=== PATIENT | male | born 1960 | race Caucasian/White ===

== ENCOUNTER 2020-07-19 21:05 | Emergency (ER) | payer BC, SELFPAY ==
[2020-07-19 21:11] VITALS: BP 191/114; PULSE 102; RESP 18; TEMP 36.3; O2SAT 98; BMI 27.8
--- NOTE | 2020-07-19 21:18 | CTR_ITS ---
PROCEDURE INFORMATION: Exam: CT Head Without Contrast Exam date and time: 07/19/2020 9:19 PM Age: 60 years old Clinical indication: Weakness, facial; Additional info: Left side facial deficit TECHNIQUE: Imaging protocol: Computed tomography of the head without contrast. Radiation optimization: All CT scans at this facility use at least one of these dose optimization techniques: automated exposure control; mA and/or kV adjustment per patient size (includes targeted exams where dose is matched to clinical indication); or iterative reconstruction. COMPARISON: CT head wo con* [id number] 06/21/2014 8:37 AM RADIATION DOSE METRICS: Total DLP (mGy-cm): 749.32 FINDINGS: Brain: Left left basal ganglia punctate benign calcification. Cerebral ventricles: No ventriculomegaly. Bones/joints: Unremarkable. No acute fracture. Paranasal sinuses: Visualized sinuses are unremarkable. No fluid levels. Mastoid air cells: Visualized mastoid air cells are well aerated. Soft tissues: Unremarkable. CT/CT head wo con* [id number] IMPRESSION: Negative for intracranial hemorrhage or mass effect. Radiation Dose CTDIVOL = (mGy): DLP = 749.32 (mGy-cm)
[2020-07-19 21:29] LABS: Glucose Point of Care 370 mg/dL (70-110)
[2020-07-19 21:32] LABS: Glucose Point of Care 417 mg/dL (70-110)
[2020-07-19 21:36] LABS: Basophils # 0.1 10^3/uL (0.0-0.1); Basophils % 0.8 %; Eosinophils # 0.3 10^3/uL (0.0-0.8); Eosinophils % 3.5 %; Hematocrit 41.7 % (42.0-52.0); Hemoglobin 13.9 g/dL (11.7-16.6); Lymphocytes % 44.8 %; Mean Corpuscular HGB Conc 33.3 g/dL (30.0-36.0); Mean Corpuscular Hemoglobin 29.7 pg (28.0-34.0); Mean Corpuscular Volume 89.1 fL (80-94); Mean Platelet Volume 9.3 fL (7.4-10.4); Monocytes # 0.6 10^3/uL (0.2-0.9); Monocytes % 6.7 %; Neutrophils # 3.95 10^3/uL (1.8-7.7); Nucleated Red Blood Cells % 0 %; Platelet Count 374 10^3/cmm (130-400); Red Blood Count 4.68 10^6/uL (4.1-5.3); Red Cell Distribution Width 11.9 % (12.1-15.1)
[2020-07-19 21:51] LABS: INR 1.03 (0.8-1.2)
--- NOTE | 2020-07-19 21:54 | ED_ITS ---
HPI - Neuro Symptoms/Deficit General: Chief Complaint: Neuro Symptoms/Deficit Stated Complaint: Partial face parallisis Time Seen by Provider: 07/19/20 21:28 History of Present Illness: HPI Narrative: This patient is a 60-year-old male who comes in today with facial droop. His family noticed it at 7 PM tonight and made him come to the emergency room. He had not noticed any issues himself other than having some watery eye symptoms during the day today. He thinks it started midmorning but he attributed to the [place] conditions where he works. He had not noticed any difficulty with eating or drinking. He has a history of diabetes and high blood pressure but does not take medications as he lost his insurance and cannot afford to get them. He currently does not have a primary care doctor. He does not think he is ever been told that he had high chol esterol. He is never had a stroke. He feels fine. He has not had any recent illness or fevers. He does say has had some allergy symptoms about a month ago. Onset (ago): unknown Timing confirmed by: family member (His daughter said she saw him last night and he was fine. When she saw him at 7:00 tonight he had a facial droop.) Location: right face History of same: No Severity: moderate Quality: weak Relieving factors: none Exacerbating factors: none Context: gradual onset (Unsure) Associated symptoms: Deny chest pain, headache(s), malaise, nausea, tingling, vertigo, vomiting or weakness Review of Systems General: Reports: 10 or more systems reviewed and unremarkable except in HPI and below Const: Denies: fever(s), chills, fatigue or malaise Eyes: Denies: change in vision ENMT: Denies: odynophagia Card: Denies: chest pain or swelling of feet/ankles Resp: Denies: dyspnea, productive cough or non-productive cough GI: Denies: nausea or vomiting : Denies: flank pain Musc: Denies: neck pain or back pain Skin/Breast: Denies: rash Neuro: Denies: headache(s) or vertigo Trevor/Lymph: Denies: easy bruising or easy bleeding [facility] ED PFSH: Medical History (Updated 07/19/20 @ 23:24 by Bree Ortiz MD) Diabetes Hypertension Physical Exam Const: COMMON NORMALS: no acute distress, patient oriented x3, no limitations and alert GENERAL APPEARANCE: cooperative and comfortable HENMT: HEAD & SCALP: normal to inspection FACE & SINUS: face not symmetric Eye: GENERAL EYE: appearance normal, both eyes and all related structures Neck/C-Spine: COMMON NORMALS: supple, no meningeal signs and no JVD Chest: COMMONS NORMALS: normal inspection of the chest Resp: COMMON NORMALS: normal respiratory effort, No use of accessory muscles and clear to auscultation bilaterally AUSCULTATION: clear to auscultation bilaterally Cardio: COMMON NORMALS: no JVD, regular rate, regular rhythm and No murmurs present (Cardio) RATE: regular rate RHYTHM: regular rhythm GI: COMMON NORMALS: Normal to inspection, nondistended, normoactive bowel sounds present, Soft to palpation and non-tender INSPECTION: Yes normal to inspection AUSCULTATION: Yes normoactive bowel sounds PALPATION: Yes Soft to palpation Back/Pelvis: COMMON NORMALS: thoracic and lumbar spine normal to inspection Extremity: COMMON NORMALS: normal to inspection Neuro: COMMON NORMALS: patient oriented x3, moves all extremities, no focal motor deficits and no sensory deficits noted SENSORIUM/ORIENTATION: Yes alert MENINGEAL SIGNS: Yes no meningeal signs CRANIAL NERVES: Yes CN V (trigeminal) (Right facial droop including the eyebrow) Psych: COMMON NORMALS: mental status grossly normal, cooperative and normal affect Skin: COMMON NORMALS: no rashes or lesions noted and turgor normal GENERAL SKIN EXAM: no rashes or lesions noted and turgor normal Course ED course: This patient remained stable through the ER visit. He had no new neurologic symptoms developing. He has a fairly classic presentation of Arrieta's palsy. We discussed the etiology and treatment of that. We also discussed the importance of managing his eye to keep it moist with lubricant and even taping the eye shut at night. We discussed the importance of returning if he were to develop any other neurologic symptoms as that would not be typical for Arrieta's palsy. I refilled his blood pressure medicine and diabetes medicine. His blood sugar was quite elevated in the ER but no sign of DKA. We will also have the shelter case managermanager style him to help try to find him a new primary care doctor. He said he cannot go back to [facility] because he owes $800 there. Vital Signs: Vital signs: Vital Signs Temperature 97.3 F L 07/19/20 21:11 Pulse Rate 84 07/19/20 23:41 Respiratory Rate 16 07/19/20 23:41 Blood Pressure 137/82 07/19/20 23:41 Pulse Oximetry 96 07/19/20 23:41 MDM - Neuro Symptoms/Deficit Lab Data: Labs: Lab Results 07/19/20 07/19/20 07/19/20 Range/Units 21:25 21:25 21:25 WBC 9.0 (4.0-10.0) 10^3/ uL RBC 4.68 (4.1-5.3) 10^6/u L Hgb 13.9 (11.7-16.6) g/dL Hct 41.7 L (42.0-52.0) % MCV 89.1 (80-94) fL MCH 29.7 (28.0-34.0) pg MCHC 33.3 (30.0-36.0) g/dL RDW 11.9 L (12.1-15.1) % Plt Count 374 (130-400) 10^3/c mm MPV 9.3 (7.4-10.4) fL Neut % (Auto) 44.0 % Lymph % (Auto) 44.8 % Holmes % (Auto) 6.7 % Eos % (Auto) 3.5 % Baso % (Auto) 0.8 % Neut # (Auto) 3.95 (1.8-7.7) 10^3/u L Lymph # (Auto) 4.0 (0.8-4.8) 10^3/u L Holmes # (Auto) 0.6 (0.2-0.9) 10^3/u L Eos # (Auto) 0.3 (0.0-0.8) 10^3/u L Baso # (Auto) 0.1 (0.0-0.1) 10^3/u L Nucleated RBC % (a uto) 0 % Nucleated RBCs # 0.0 /100WBC PT 13.80 (12.1-14.9) SECO NDS INR 1.03 (0.8-1.2) Sodium 135 L (136-145) mmol/L Potassium 3.6 (3.5-5.1) mmol/L Chloride 96 L (98-107) mmol/L Carbon Dioxide 28 (22-29) mmol/L Anion Gap 14.6 (5-19) BUN 18 (8-23) mg/dL Creatinine 1.0 (0.7-1.2) mg/dL GFR Calculation 76.2 L (90-130) mL/min Glucose 417 H (65-115) mg/dL POC Glucose (70-110) mg/dL Calculated Osmolal ity 300 H (285-295) mOsm/k g Calcium 9.2 (8.5-10.5) mg/dL Total Bilirubin 0.4 (0.15-1.2) mg/dL AST 30 (0-40) U/L ALT 31 (0-41) U/L Alkaline Phosphata se 144 H (40-130) IU/L Total Protein 7.4 (6.6-8.7) g/dL Albumin 4.5 (3.5-5.2) g/dL Globulin 2.9 (1.3-4.6) g/dL Urine Color (Yellow) Urine Appearance (CLEAR) Urine pH (5-7) Ur Specific Gravit y (1.005-1.030) Urine Protein (Negative) Urine Glucose (UA) (Normal) Urine Ketones (Negative) Urine Blood (Negative) Urine Nitrate (Negative) Urine Bilirubin (Negative) Urine Urobilinogen (Negative) mg/dL Ur Leukocyte Jaylin ase (Negative) 07/19/20 07/19/20 07/19/20 Range/Units 21:27 21:31 22:26 WBC (4.0-10.0) 10^3/ uL RBC (4.1-5.3) 10^6/u L Hgb (11.7-16.6) g/dL Hct (42.0-52.0) % MCV (80-94) fL MCH (28.0-34.0) pg MCHC (30.0-36.0) g/dL RDW (12.1-15.1) % Plt Count (130-400) 10^3/c mm MPV (7.4-10.4) fL Neut % (Auto) % Lymph % (Auto) % Holmes % (Auto) % Eos % (Auto) % Baso % (Auto) % Neut # (Auto) (1.8-7.7) 10^3/u L Lymph # (Auto) (0.8-4.8) 10^3/u L Holmes # (Auto) (0.2-0.9) 10^3/u L Eos # (Auto) (0.0-0.8) 10^3/u L Baso # (Auto) (0.0-0.1) 10^3/u L Nucleated RBC % (a uto) % Nucleated RBCs # /100WBC PT (12.1-14.9) SECO NDS INR (0.8-1.2) Sodium (136-145) mmol/L Potassium (3.5-5.1) mmol/L Chloride (98-107) mmol/L Carbon Dioxide (22-29) mmol/L Anion Gap (5-19) BUN (8-23) mg/dL Creatinine (0.7-1.2) mg/dL GFR Calculation (90-130) mL/min Glucose (65-115) mg/dL POC Glucose 370 417 (70-110) mg/dL Calculated Osmolal ity (285-295) mOsm/k g Calcium (8.5-10.5) mg/dL Total Bilirubin (0.15-1.2) mg/dL AST (0-40) U/L ALT (0-41) U/L Alkaline Phosphata se (40-130) IU/L Total Protein (6.6-8.7) g/dL Albumin (3.5-5.2) g/dL Globulin (1.3-4.6) g/dL Urine Color Yellow (Yellow) Urine Appearance Clear (CLEAR) Urine pH 6.0 (5-7) Ur Specific Gravit y 1.015 (1.005-1.030) Urine Protein Neg (Negative) Urine Glucose (UA) 4+ H (Normal) Urine Ketones Negative (Negative) Urine Blood Neg (Negative) Urine Nitrate Negative (Negative) Urine Bilirubin Neg (Negative) Urine Urobilinogen Norm (Negative) mg/dL Ur Leukocyte Jaylin ase Negative (Negative) 07/19/20 Range/Units 23:02 WBC (4.0-10.0) 10^3/ uL RBC (4.1-5.3) 10^6/u L Hgb (11.7-16.6) g/dL Hct (42.0-52.0) % MCV (80-94) fL MCH (28.0-34.0) pg MCHC (30.0-36.0) g/dL RDW (12.1-15.1) % Plt Count (130-400) 10^3/c mm MPV (7.4-10.4) fL Neut % (Auto) % Lymph % (Auto) % Holmes % (Auto) % Eos % (Auto) % Baso % (Auto) % Neut # (Auto) (1.8-7.7) 10^3/u L Lymph # (Auto) (0.8-4.8) 10^3/u L Holmes # (Auto) (0.2-0.9) 10^3/u L Eos # (Auto) (0.0-0.8) 10^3/u L Baso # (Auto) (0.0-0.1) 10^3/u L Nucleated RBC % (a uto) % Nucleated RBCs # /100WBC PT (12.1-14.9) SECO NDS INR (0.8-1.2) Sodium (136-145) mmol/L Potassium (3.5-5.1) mmol/L Chloride (98-107) mmol/L Carbon Dioxide (22-29) mmol/L Anion Gap (5-19) BUN (8-23) mg/dL Creatinine (0.7-1.2) mg/dL GFR Calculation (90-130) mL/min Glucose (65-115) mg/dL POC Glucose 231 (70-110) mg/dL Calculated Osmolal ity (285-295) mOsm/k g Calcium (8.5-10.5) mg/dL Total Bilirubin (0.15-1.2) mg/dL AST (0-40) U/L ALT (0-41) U/L Alkaline Phosphata se (40-130) IU/L Total Protein (6.6-8.7) g/dL Albumin (3.5-5.2) g/dL Globulin (1.3-4.6) g/dL Urine Color (Yellow) Urine Appearance (CLEAR) Urine pH (5-7) Ur Specific Gravit y (1.005-1.030) Urine Protein (Negative) Urine Glucose (UA) (Normal) Urine Ketones (Negative) Urine Blood (Negative) Urine Nitrate (Negative) Urine Bilirubin (Negative) Urine Urobilinogen (Negative) mg/dL Ur Leukocyte Jaylin ase (Negative) Discharge Plan Discharge Patient Disposition: Home Clinical Impression: Arrieta's palsy Diabetes Qualifiers: Diabetes mellitus type: type 2 Diabetes mellitus assistant terminal manager insulin use: without intermediate use Diabetes mellitus complication status: without complication Qualified Code(s): E11.9 - Type 2 diabetes mellitus without complications Hypertension Qualifiers: Hypertension type: unspecified Qualified Code(s): I10 - Essential (primary) hypertension Condition: Stable Prescriptions: New metformin 500 mg tablet 1,000 mg PO BID Qty: 120 RF: 0 prednisone 50 mg tablet 50 mg PO DAILY 7 Days Qty: 7 RF: 0 acyclovir 200 mg capsule 400 mg PO 5XD Qty: 100 RF: 0 lisinopril-hydrochlorothiazide 20-12.5 mg tablet 1 tab PO DAILY Qty: 30 RF: 0 No Action Adult Low Dose Aspirin 81 mg tablet 81 mg PO DAILY RF: 0 Discharge Orders: Discharge Order (Routine); Ordered 07/19/20 Ordered By: Bree Ortiz Discharge Diet: Diabetic Discharge Activity: Resume usual activity Patient Instructions: Arrieta Palsy (ED) Activity Restrictions/Additional Instructions: Return to the ER if any new symptoms develop including difficulty with speech, swallowing, vision, weakness or numbness in arms or legs, dizziness. Take the prednisone as prescribed. This has been shown to help reduce the duration of Arrieta's palsy. Also take the acyclovir as this may help as well. We are also restarting you on your Metformin and lisinopril/hydrochlorothiazide for diabetes and blood pressure. It is important that you establish care with a primary care physician to further manage these chronic illnesses. Both of these put you at higher risk for many health problems including stroke and heart disease. Coding Level of Care Code ED International Specialist for Sweta Alvarez Exam Comprehensive
[2020-07-19 21:59] LABS: Alanine Aminotransferase 31 U/L (0-41); Albumin Level 4.5 g/dL (3.5-5.2); Alkaline Phosphatase 144 IU/L (40-130); Anion Gap 14.6 (5-19); Aspartate Amino Transferase 30 U/L (0-40); Blood Urea Nitrogen 18 mg/dL (8-23); Calcium 9.2 mg/dL (8.5-10.5); Carbon Dioxide 28 mmol/L (22-29); Chloride 96 mmol/L (98-107); Creatinine Clr Calc Pharmacy 89.3098; Globulin 2.9 g/dL (1.3-4.6); Glomerular Filtration Rate 76.2 mL/min (90-130); Glucose 417 mg/dL (65-115); Osmolality Calculated 300 mOsm/kg (285-295); Potassium 3.6 mmol/L (3.5-5.1); Sodium 135 mmol/L (136-145); Total Bilirubin 0.4 mg/dL (0.15-1.2); Total Protein 7.4 g/dL (6.6-8.7)
[2020-07-19 22:23] VITALS: BP 169/106; PULSE 91; RESP 19; O2SAT 97
[2020-07-19] MEDS: predniSONE 20 mg Tablet 60 MG PO (22:25)
[2020-07-19] MEDS: insulin regular-human 100 units/1 mL 10 UNIT IVP (22:25)
[2020-07-19] MEDS: sodium chloride 0.9% 1,000 ML 999 ML IV (22:31)
[2020-07-19 22:33] VITALS: BP 171/100; PULSE 87; RESP 19; O2SAT 97
[2020-07-19 22:33] LABS: Add Urine Microscopic? NO
[2020-07-19 22:41] LABS: Specific Gravity, Urine 1.015 (1.005-1.030); Urine Appearance Clear (CLEAR); Urine Color Yellow (Yellow)
[2020-07-19] MEDS: acyclovir 400 mg Tablet PO (22:41)
[2020-07-19 22:42] LABS: Bilirubin Urine Neg (Negative); Blood Urine Neg (Negative); Glucose Urine UA 4+ (Normal); Ketones Urine Negative (Negative); Leukocyte Esterase Urine Negative (Negative); Nitrate Urine Negative (Negative); Protein Urine Neg (Negative); Urobilinogen Urine Norm (Negative)
[2020-07-19 23:03] VITALS: BP 141/91; PULSE 87; RESP 17; O2SAT 97
[2020-07-19 23:04] LABS: Glucose Point of Care 231 mg/dL (70-110)
--- NOTE | 2020-07-19 23:04 | PC.NURSE ---
Glu: 231
[2020-07-19 23:41] VITALS: BP 137/82; PULSE 84; RESP 16; O2SAT 96
--- NOTE | 2020-07-22 16:22 | DCPLANNER ---
security operations manager had message to speak with patient about getting established with a primary care physician. security operations manager called patients number in chart, unable to speak with patient. security operations manager called patients ex , got a new number for patient. Called the new number unable to speak with patient at this time.
== END 2020-07-19 23:41 | disposition home or self-care (01) ==
PROVIDERS: Emergency Provider Emergency Medicine
DX: G51.0 Bell's palsy (principal); E11.9 Type 2 diabetes mellitus without complications; I10 Essential (primary) hypertension; Z79.84 Long term (current) use of oral hypoglycemic drugs
CPT/HCPCS: 12345; 36416; 70450; 80053; 81003; 82962; 85025; 85610; 96361; 96374; 99283; J1815; J7030; J7512; J8499

== ENCOUNTER 2021-04-07 08:27 | Outpatient (CLI) | payer BC, SELFPAY ==
[2021-04-07 09:28] VITALS: BP 138/88; PULSE 107; RESP 16; TEMP 37.2; O2SAT 95
[2021-04-07 09:55] VITALS: BP 127/82; PULSE 105; RESP 16; TEMP 36.7; O2SAT 93
[2021-04-07 10:44] VITALS: BP 119/82; PULSE 104; RESP 18; TEMP 36.7; O2SAT 94
[2021-04-07 10:46] VITALS: BP 119/82; PULSE 104; RESP 18; TEMP 36.7; O2SAT 94
== END 2021-04-07 13:04 | disposition home or self-care (01) ==
LOC: OPS 08:31
PROVIDERS: Visit Provider Family Medicine
DX: U07.1 COVID-19 (principal)
CPT/HCPCS: 96365

== ENCOUNTER 2021-05-25 19:57 | Emergency (ER) | payer BC, SELFPAY ==
[2021-05-25 20:03] VITALS: BP 152/91; PULSE 100; RESP 16; TEMP 37.1; O2SAT 98; BMI 28.5
--- NOTE | 2021-05-25 21:04 | XRR_ITS ---
PROCEDURE INFORMATION: Exam: XR Left Foot Exam date and time: 05/25/2021 9:04 PM Age: 61 years old Clinical indication: Pain; Foot; Left; Additional info: Evaluate for osteo TECHNIQUE: Imaging protocol: XR Left foot. Views: 3 or more views. Total images: 3 COMPARISON: No relevant prior studies available. FINDINGS: Bones/joints: No visible evidence of active or acute osseous pathology. Small heel spur. Soft tissues: Soft tissues without evidence of edema, swelling, contusion, emphysema, or radiopaque foreign body. XR/XR foot LT min 3V* [id number] IMPRESSION: Nonacute.
--- NOTE | 2021-05-25 21:15 | PC.NURSE ---
noted to have pocket of fluid. bruise not related to injury. great toe he was clipping and 'clipped a little much'. toe was bugging him' since he stubbed one next to it and didn't bother him until yesterday.
--- NOTE | 2021-05-25 21:18 | W.ED.EXTPRO ---
HPI - Extremity Problem General: Chief complaint: Extremity Problem,Nontraumatic Stated complaint: L Toes swollen\Infected Time Seen by Provider: 05/25/21 21:13 History of Present Illness: HPI Narrative: Patient stubbed his toe today now has a blister on the #2 toe left foot. Says sugars been running 200s last few days. Denies any other problems. MD Complaint: other Onset (ago): day(s) Location: left and toe Associated symptoms: Reports no associated symptoms; Deny fever(s) Review of Systems Const: Denies: fever(s) or chills Musc: Reports: other (Has blister on the end of his #2 toe slight redness.) Psych: Denies: anxiety or depression PFS ED PFSH: Medical History (Updated 05/25/21 @ 21:25 by ABY Marshall) Diabetes Hypertension Physical Exam Const: COMMON NORMALS: no acute distress GENERAL APPEARANCE: cooperative Psych: COMMON NORMALS: mental status grossly normal Skin: OTHER: Medium sized blister to distal aspect left #2 toe. No swelling only in about the toe. No foot ulcers noted. Course Vital Signs: Vital signs: Vital Signs Temperature 98.8 F 05/25/21 20:03 Pulse Rate 100 05/25/21 20:03 Respiratory Rate 16 05/25/21 20:03 Blood Pressure 152/91 05/25/21 20:03 Pulse Oximetry 98 05/25/21 20:03 MDM - Extremity (Nontraumatic) MDM Narrative: Medical decision making narrative: Radiology negative. Patient does have blister in the toe. There was no break in skin. Patient will be covered with clindamycin for empiric therapy. More per patient's request. I do not see any obvious signs of infection does appear to be a fluid filled blister not pus filled. No redness noted proximal of the blister which is only in the toe. Patient follow-up primary care provider. Get better control of blood sugar. Discharge Plan Discharge Patient Disposition: Home Clinical Impression: Blister Injury of toe on left foot Qualifiers: Encounter type: initial encounter Qualified Code(s): S99.922A - Unspecified injury of left foot, initial encounter Condition: Stable Prescriptions: New clindamycin HCl 300 mg capsule 300 mg PO Q8H 7 Days Qty: 21 RF: 0 No Action Adult Low Dose Aspirin 81 mg tablet 81 mg PO DAILY RF: 0 Discharge Orders: Discharge ED (Routine); Ordered 05/25/21 Ordered By: Micheal Ontiveros Discharge Diet: Usual diet Discharge Activity: Resume usual activity Activity Restrictions/Additional Instructions: Follow-up with medical provider as directed. Take medications as prescribed. Return to the ER or your medical provider if condition worsens. Please read and understand discharge instructions. If any questions ask please. Coding Level of Care Code ED Director Of Operations Home Health for Sweta Fwsruthi Exam Expanded Problem Focused
[2021-05-25] MEDS: clindamycin 150 mg Capsule 300 MG PO (21:31)
[2021-05-25 21:37] VITALS: RESP 16
== END 2021-05-25 21:38 | disposition home or self-care (01) ==
PROVIDERS: Emergency Provider Nurse Practitioner Family
DX: S90.425A Blister (nonthermal), left lesser toe(s), initial encounter (principal); X58.XXXA Exposure to other specified factors, initial encounter; E11.9 Type 2 diabetes mellitus without complications; I10 Essential (primary) hypertension
CPT/HCPCS: 73630; 99282

== ENCOUNTER 2021-05-31 10:44 | Emergency (ER) | payer BC, SELFPAY ==
--- NOTE | 2021-05-31 10:59 | XR_ITS ---
WS: [id number] LEFT FOOT: 2 VIEW(S) TECHNIQUE: AP and lateral. HISTORY: iNJURY COMPARISON: 05/25/2021 No acute fracture or dislocation. Normal tarsal/metatarsal alignment. Mild soft tissue edema surrounding the second toe. No foreign bod y. Small calcaneal spur. Peripheral arterial calcifications. XR/XR foot LT 2V [id number] IMPRESSION: Soft tissue edema surrounding the second toe. No foreign body or fracture.
[2021-05-31 11:05] VITALS: BP 156/93; PULSE 111; RESP 16; TEMP 36.6; O2SAT 98; BMI 28.5
[2021-05-31 11:13] VITALS: BP 163/114; PULSE 98; PULSE 99; RESP 16; TEMP 36.6; O2SAT 99
--- NOTE | 2021-05-31 11:17 | W.ED.EXTPRO ---
Documented by User: OBED Doyle 05/31/21 13:40 HPI - Extremity Problem General: Chief complaint: Extremity Injury, Lower Stated complaint: Injury to Left Foot/Toe Time Seen by Provider: 05/31/21 11:01 Source: patient Mode of arrival: ambulatory Limitations: no limitations History of Present Illness: HPI Narrative: Patient is a 61-year-old male who presents to ED today for evaluation of his left great toe. Patient states he initially stubbed the toe approximately 1.5 weeks ago. He was seen at our facility and at that time had an intact blister to the dorsal aspect of the toe. He was placed on Clindamycin. Patient states he then followed up at [facility] Urgent [facility] and told to soak the foot and continue antibiotics. He states he was seen at [facility] on Saturday and they unroofed blister and changed antibiotics to Bactrim. He states toe does not seem to be improving. Patient is a diabetic. He thinks the urgent care referred him to wound care but is not sure about this. No fevers. MD Complaint: extremity pain and extremity swelling Onset (ago): day(s) Pain Consistency: constant Location: toe Associated symptoms: Reports no associated symptoms; Deny chest pain or fever(s) Review of Systems Const: Denies: fever(s), chills, body aches, fatigue or malaise Card: Denies: chest pain Resp: Denies: dyspnea GI: Denies: nausea or vomiting Musc: Reports: extremity pain (L 4th toe) and extremity swelling (L 4th toe) Skin/Breast: Reports: other (blister to L 4th toe) Neuro: Denies: numbness in extremities, weakness in extremities or sensory changes PENDING SALE TO [facility] ED PFSH: Medical History (Updated 06/02/21 @ 00:02 by ) Diabetes Hypertension Social History Smoking and tobacco status: never smoked Physical Exam Const: COMMON NORMALS: no acute distress, average body habitus, patient oriented x3, no limitations, healthy appearing, alert and well nourished Extremity: GENERAL: Yes normal exam except as noted OTHER: pt has dusky bluish/purple discoloration to dorsal aspect of L 4th toe; he has what he states was a formed blister that is now unroofed/debrided; no drainage or odor present; no ulcer; he does have mild erythema/warmth to distal dorsal foot; no lymphangitis Neuro: COMMON NORMALS: patient oriented x3, moves all extremities, no focal motor deficits and no sensory deficits noted SENSORIUM/ORIENTATION: Yes alert Skin: NARRATIVE SKIN EXAM: see extremity assessment; otherwise normal skin exam Course Vital Signs: Vital signs: Vital Signs Temperature 98.1 F 05/31/21 13:49 Pulse Rate 82 05/31/21 13:49 Respiratory Rate 16 05/31/21 13:49 Blood Pressure 168/110 05/31/21 13:49 Pulse Oximetry 98 05/31/21 13:49 MDM - Extremity (Nontraumatic) MDM Narrative: Medical decision making narrative: Patient has a left foot cellulitis and infection/possible necrosis to his L 2nd toe. He is not tachycardic or febrile. He has a normal white count and normal lactate. CRP minimally elevated at 16.6. No evidence for osteo on his XR. Discussed with Dr. Le who recommends DC home with levofloxacin and follow up with wound care. Appointment made for tomorrow. No culture performed at [facility] when they debrided blister. No drainage here for culture. Strict return to ED precautions given. Lab Data: Labs: Lab Results 05/31/21 05/31/21 05/31/21 11:24 11:24 11:24 WBC 8.4 10^3/uL 10^3/ uL (4.0-10.0) RBC 4.17 10^6/uL 10^6 /uL (4.1-5.3) Hgb 12.6 g/dL g/dL (11.7-16.6) Hct 36.3 % L % (42.0-52.0) MCV 87.1 fl fl (80-94) MCH 30.2 pg pg (28.0-34.0) MCHC 34.7 g/dL g/dL (30.0-36.0) RDW 12.6 % % (12.1-15.1) Plt Count 465 10^3/cmm H 10 ^3/cmm (130-400) MPV 8.4 fL fL (7.4-10.4) Neut % (Auto) 56.3 % % Lymph % (Auto) 32.1 % % [place] % (Auto) 5.6 % % Eos % (Auto) 4.5 % % Baso % (Auto) 1.1 % % Neut # (Auto) 4.75 10^3/uL 10^3 /uL (1.8-7.7) Lymph # (Auto) 2.7 10^3/uL 10^3/ uL (0.8-4.8) [place] # (Auto) 0.5 10^3/uL 10^3/ uL (0.2-0.9) Eos # (Auto) 0.4 10^3/uL 10^3/ uL (0.0-0.8) Baso # (Auto) 0.1 10^3/uL 10^3/ uL (0.0-0.1) Nucleated RBC % (a uto) 0 % % Nucleated RBCs # 0.0 /100WBC /100W BC Sodium 136 mmol/L mmol/L (136-145) Potassium 3.4 mmol/L L mmol /L (3.5-5.1) Chloride 98 mmol/L mmol/L (98-107) Carbon Dioxide 25 mmol/L mmol/L (22-29) Anion Gap 16.4 (5-19) BUN 20 mg/dL mg/dL (8-23) Creatinine 1.3 mg/dL H mg/dL (0.7-1.2) GFR Calculation 56.1 mL/min L mL/ min (90-130) Glucose 191 mg/dL H mg/dL (65-115) Calculated Osmolal ity 290 mOsm/kg mOsm/ kg (285-295) Lactic Acid 1.8 mmol/L mmol/L (0.5-2.2) Calcium 9.3 mg/dL mg/dL (8.5-10.5) Total Bilirubin 0.4 mg/dL mg/dL (0.15-1.2) AST 22 U/L U/L (0-40) ALT 31 U/L U/L (0-41) Alkaline Phosphata se 96 IU/L IU/L (40-130) C-Reactive Protein 16.6 mg/L H mg/L (0.0-4.9) Total Protein 7.9 g/dL g/dL (6.6-8.7) Albumin 4.3 g/dL g/dL (3.5-5.2) Globulin 3.6 g/dL g/dL (1.3-4.6) Imaging Data^: XR L foot: Radiologist's impression: [address] [address] XRay Report Signed Patient: Prashant Dangelo JR Unit #: [id number] : [id number] Age/Sex: 61 / M ADM Date: 05/31/21 Loc: ER Room/Bed: Attending Dr: Ordering Provider/Ordering MD: Ricky Grimes MD Date of Service: 05/31/21 Procedure(s): XR foot LT 2V [id number] Accession Number(s): [id number] Report Number: [id number] WS: [id number] LEFT FOOT: 2 VIEW(S) TECHNIQUE: AP and lateral. HISTORY: iNJURY COMPARISON: 05/25/2021 No acute fracture or dislocation. Normal tarsal/metatarsal alignment. Mild soft tissue edema surrounding the second toe. No foreign body. Small calcaneal spur. Peripheral arterial calcifications. XR/XR foot LT 2V [id number] IMPRESSION: Soft tissue edema surrounding the second toe. No foreign body or fracture. Dictated By: Kasey Israel DO Signed By: Kasey Israel DO Signed Date/Time: 05/31/21 1142 DD/ 1132 Discharge Plan Discharge Patient Disposition: Home Clinical Impression: Cellulitis of foot, left Infected blister of second toe of left foot Qualifiers: Encounter type: initial encounter Qualified Code(s): S90.425A - Blister (nonthermal), left lesser toe(s), initial encounter Condition: Stable Prescriptions: New levofloxacin 500 mg tablet 500 mg PO DAILY 7 Days Qty: 7 RF: 0 Continued sulfamethoxazole-trimethoprim [Bactrim DS] 800-160 mg tablet 1 tab PO Q12H Qty: 14 RF: 0 No Action multivitamin Tablet 1 tab PO DAILY RF: 0 atorvastatin 40 mg tablet 40 mg PO DAILY RF: 0 Lantus U-100 Insulin 100 unit/mL solution 30 unit SUBCUT DAILY RF: 0 Vicky Allergy 60 mg Tablet 60 mg PO DAILY RF: 0 meloxicam 15 mg Tablet 15 mg PO BEDTIME RF: 0 glipizide 10 mg tablet 10 mg PO BID RF: 0 terbinafine HCl 250 mg tablet 250 mg PO DAILY RF: 0 amlodipine 10 mg tablet 10 mg PO DAILY RF: 0 metformin 500 mg Tablet Extended Release 24 Hr 1,000 mg PO BID RF: 0 losartan-hydrochlorothiazide 100-12.5 mg Tablet 1 tab PO DAILY RF: 0 aspirin 81 mg Tablet,Chewable 81 mg PO DAILY RF: 0 Discharge Orders: Discharge ED (Routine); Ordered 05/31/21 Ordered By: Jasmin Hyman Referrals: Babita Rangel MD [Primary Care Provider] - Barbara Nelson [Emergency Department] - 06/01/21 2:00 pm Activity Restrictions/Additional Instructions: Please begin your antibiotics immediately. As we discussed you have an appointment at 2 PM tomorrow at [facility] located at [address] [place] [address]. Phone number is . Make sure you attend this appointment. You need to return to the emergency department for worsening redness to your left foot, redness streaking up your leg, fevers of greater than 100.4, inability to hold down your antibiotics, or any other concerns you may have. Coding Level of Care Code ED Market Consultant for Chg Fwd Exam Expanded Problem Focused Documented by User: Tutu Le DO 06/05/21 06:40 HPI - Extremity Problem General: Chief complaint: Extremity Injury, Lower Stated complaint: Injury to Left Foot/Toe Time Seen by Provider: 05/31/21 11:01 PENDING SALE TO [facility] ED PFSH: Medical History (Updated 06/02/21 @ 00:02 by ) Diabetes Hypertension Social History Smoking and tobacco status: never smoked Course Vital Signs: Vital signs: Vital Signs Temperature 98.1 F 05/31/21 13:49 Pulse Rate 82 05/31/21 13:49 Respiratory Rate 16 05/31/21 13:49 Blood Pressure 168/110 05/31/21 13:49 Pulse Oximetry 98 05/31/21 13:49 MDM - Extremity (Nontraumatic) MDM Narrative: Medical decision making narrative: Reviewed chart with Jasmin Hyman agree with assessment and plan. Lab Data: Labs: Lab Results 05/31/21 05/31/21 05/31/21 11:24 11:24 11:24 WBC 8.4 10^3/uL 10^3/ uL (4.0-10.0) RBC 4.17 10^6/uL 10^6 /uL (4.1-5.3) Hgb 12.6 g/dL g/dL (11.7-16.6) Hct 36.3 % L % (42.0-52.0) MCV 87.1 fl fl (80-94) MCH 30.2 pg pg (28.0-34.0) MCHC 34.7 g/dL g/dL (30.0-36.0) RDW 12.6 % % (12.1-15.1) Plt Count 465 10^3/cmm H 10 ^3/cmm (130-400) MPV 8.4 fL fL (7.4-10.4) Neut % (Auto) 56.3 % % Lymph % (Auto) 32.1 % % [place] % (Auto) 5.6 % % Eos % (Auto) 4.5 % % Baso % (Auto) 1.1 % % Neut # (Auto) 4.75 10^3/uL 10^3 /uL (1.8-7.7) Lymph # (Auto) 2.7 10^3/uL 10^3/ uL (0.8-4.8) [place] # (Auto) 0.5 10^3/uL 10^3/ uL (0.2-0.9) Eos # (Auto) 0.4 10^3/uL 10^3/ uL (0.0-0.8) Baso # (Auto) 0.1 10^3/uL 10^3/ uL (0.0-0.1) Nucleated RBC % (a uto) 0 % % Nucleated RBCs # 0.0 /100WBC /100W BC Sodium 136 mmol/L mmol/L (136-145) Potassium 3.4 mmol/L L mmol /L (3.5-5.1) Chloride 98 mmol/L mmol/L (98-107) Carbon Dioxide 25 mmol/L mmol/L (22-29) Anion Gap 16.4 (5-19) BUN 20 mg/dL mg/dL (8-23) Creatinine 1.3 mg/dL H mg/dL (0.7-1.2) GFR Calculation 56.1 mL/min L mL/ min (90-130) Glucose 191 mg/dL H mg/dL (65-115) Calculated Osmolal ity 290 mOsm/kg mOsm/ kg (285-295) Lactic Acid 1.8 mmol/L mmol/L (0.5-2.2) Calcium 9.3 mg/dL mg/dL (8.5-10.5) Total Bilirubin 0.4 mg/dL mg/dL (0.15-1.2) AST 22 U/L U/L (0-40) ALT 31 U/L U/L (0-41) Alkaline Phosphata se 96 IU/L IU/L (40-130) C-Reactive Protein 16.6 mg/L H mg/L (0.0-4.9) Total Protein 7.9 g/dL g/dL (6.6-8.7) Albumin 4.3 g/dL g/dL (3.5-5.2) Globulin 3.6 g/dL g/dL (1.3-4.6) Discharge Plan Discharge Patient Disposition: Home Clinical Impression: Cellulitis of foot, left Infected blister of second toe of left foot Qualifiers: Encounter type: initial encounter Qualified Code(s): S90.425A - Blister (nonthermal), left lesser toe(s), initial encounter Condition: Stable Prescriptions: New levofloxacin 500 mg tablet 500 mg PO DAILY 7 Days Qty: 7 RF: 0 Continued sulfamethoxazole-trimethoprim [Bactrim DS] 800-160 mg tablet 1 tab PO Q12H Qty: 14 RF: 0 No Action multivitamin Tablet 1 tab PO DAILY RF: 0 atorvastatin 40 mg tablet 40 mg PO DAILY RF: 0 Lantus U-100 Insulin 100 unit/mL solution 30 unit SUBCUT DAILY RF: 0 Vicky Allergy 60 mg Tablet 60 mg PO DAILY RF: 0 meloxicam 15 mg Tablet 15 mg PO BEDTIME RF: 0 glipizide 10 mg tablet 10 mg PO BID RF: 0 terbinafine HCl 250 mg tablet 250 mg PO DAILY RF: 0 amlodipine 10 mg tablet 10 mg PO DAILY RF: 0 metformin 500 mg Tablet Extended Release 24 Hr 1,000 mg PO BID RF: 0 losartan-hydrochlorothiazide 100-12.5 mg Tablet 1 tab PO DAILY RF: 0 aspirin 81 mg Tablet,Chewable 81 mg PO DAILY RF: 0 Discharge Orders: Discharge ED (Routine); Ordered 05/31/21 Ordered By: Jasmin Hyman Referrals: Babita Rangel MD [Primary Care Provider] - Barbara Nelson [Emergency Department] - 06/01/21 2:00 pm Activity Restrictions/Additional Instructions: Please begin your antibiotics immediately. As we discussed you have an appointment at 2 PM tomorrow at [facility] located at [address] [place] [address]. Phone number is . Make sure you attend this appointment. You need to return to the emergency department for worsening redness to your left foot, redness streaking up your leg, fevers of greater than 100.4, inability to hold down your antibiotics, or any other concerns you may have. Coding Level of Care Code ED Market Consultant for Jeseg Fwd Exam Expanded Problem Focused
[2021-05-31 11:31] VITALS: BP 156/110; PULSE 92
[2021-05-31 11:36] LABS: Basophils # 0.1 10^3/uL (0.0-0.1); Basophils % 1.1 %; Eosinophils # 0.4 10^3/uL (0.0-0.8); Eosinophils % 4.5 %; Hematocrit 36.3 % (42.0-52.0); Hemoglobin 12.6 g/dL (11.7-16.6); Lymphocytes # 2.7 10^3/uL (0.8-4.8); Lymphocytes % 32.1 %; Mean Corpuscular HGB Conc 34.7 g/dL (30.0-36.0); Mean Corpuscular Hemoglobin 30.2 pg (28.0-34.0); Mean Corpuscular Volume 87.1 fl (80-94); Mean Platelet Volume 8.4 fL (7.4-10.4); Monocytes # 0.5 10^3/uL (0.2-0.9); Monocytes % 5.6 %; Neutrophils # 4.75 10^3/uL (1.8-7.7); Neutrophils % 56.3 %; Nucleated Red Blood Cells % 0 %; Platelet Count 465 10^3/cmm (130-400); Red Blood Count 4.17 10^6/uL (4.1-5.3); Red Cell Distribution Width 12.6 % (12.1-15.1); White Blood Count 8.4 10^3/uL (4.0-10.0)
[2021-05-31 11:55] LABS: Lactic Sepsis W/Reflex 1.8 mmol/L (0.5-2.2)
[2021-05-31 11:56] LABS: Alanine Aminotransferase 31 U/L (0-41); Albumin Level 4.3 g/dL (3.5-5.2); Alkaline Phosphatase 96 IU/L (40-130); Anion Gap 16.4 (5-19); Aspartate Amino Transferase 22 U/L (0-40); Blood Urea Nitrogen 20 mg/dL (8-23); C Reactive Protein 16.6 mg/L (0.0-4.9); Calcium 9.3 mg/dL (8.5-10.5); Carbon Dioxide 25 mmol/L (22-29); Chloride 98 mmol/L (98-107); Globulin 3.6 g/dL (1.3-4.6); Glomerular Filtration Rate 56.1 mL/min (90-130); Glucose 191 mg/dL (65-115); Osmolality Calculated 290 mOsm/kg (285-295); Potassium 3.4 mmol/L (3.5-5.1); Sodium 136 mmol/L (136-145); Total Bilirubin 0.4 mg/dL (0.15-1.2); Total Protein 7.9 g/dL (6.6-8.7)
[2021-05-31] MEDS: piperacillin-tazobactam 3.375 GM in sodium chloride 0.9% (plus) 50 ML IV (12:01)
[2021-05-31 12:17] VITALS: BP 153/105; PULSE 88
[2021-05-31] MEDS: vancomycin 1,000 MG in sodium chloride 0.9% 250 ML 250 MG IV (12:31)
--- NOTE | 2021-05-31 13:22 | DCPLANNER ---
Addendum entered by Julia Buenrostro 09/21/21 17:04: Patient had a follow up appointment scheduled with Wound Care - patient did attend appointment. Original Note: senior product development manager was asked to schedule a follow up appointment for patient with Wound Care. senior product development manager called the Wound Care clinic, spoke with Rita, gave clinic patients information. A follow up appointment was scheduled for patient for , June 01, 2021 at 2:00 with Lizett. senior product development manager informed physician of the scheduled appointment that will be added to patients discharge paperwork.
[2021-05-31 13:49] VITALS: BP 168/110; PULSE 82; RESP 16; TEMP 36.7; O2SAT 98
== END 2021-05-31 14:02 | disposition home or self-care (01) ==
PROVIDERS: Emergency Provider Physician Assistant; PCP Family Medicine
DX: L03.116 Cellulitis of left lower limb (principal); S90.425A Blister (nonthermal), left lesser toe(s), initial encounter; Z79.82 Long term (current) use of aspirin; Z79.4 Long term (current) use of insulin; E11.9 Type 2 diabetes mellitus without complications; I10 Essential (primary) hypertension; W22.09XA Striking against other stationary object, initial encounter
CPT/HCPCS: 73620; 80053; 83605; 85025; 86140; 87040; 96365; 96367; 99284; A6446; J2543; J3370; J7050

== ENCOUNTER 2021-06-06 10:00 | Outpatient (CLI) | payer BC, SELFPAY | END 2021-06-06 10:01 | disposition home or self-care (01) | LOC: WOUND 10:01 | PROVIDERS: PCP Family Medicine; Visit Provider Thoracic Surgery (Cardiothoracic Vascular Surgery) | DX: E11.621 Type 2 diabetes mellitus with foot ulcer (principal); L97.521 Non-pressure chronic ulcer of other part of left foot limited to breakdown of skin; L03.032 Cellulitis of left toe | CPT/HCPCS: 97597; G0463 ==

== ENCOUNTER 2021-06-13 10:40 | Outpatient (CLI) | payer BC, SELFPAY | END 2021-06-13 10:41 | disposition home or self-care (01) | LOC: WOUND 10:40 | PROVIDERS: PCP Family Medicine; Visit Provider Thoracic Surgery (Cardiothoracic Vascular Surgery) | DX: E11.621 Type 2 diabetes mellitus with foot ulcer (principal); L97.521 Non-pressure chronic ulcer of other part of left foot limited to breakdown of skin | CPT/HCPCS: 97597 ==

== ENCOUNTER 2021-06-20 10:29 | Outpatient (CLI) | payer BC, SELFPAY | END 2021-06-20 10:30 | disposition home or self-care (01) | LOC: WOUND 10:29 | PROVIDERS: PCP Family Medicine; Visit Provider Thoracic Surgery (Cardiothoracic Vascular Surgery) | DX: Z09 Encounter for follow-up examination after completed treatment for conditions other than malignant neoplasm (principal) | CPT/HCPCS: 99212; A6212 ==

== ENCOUNTER 2021-12-05 06:16 | Emergency (ER) | payer BC, SELFPAY ==
[2021-12-05 06:25] VITALS: BP 157/98; PULSE 107; RESP 18; TEMP 36.4; O2SAT 97; BMI 30.5
[2021-12-05 06:28] VITALS: BP 184/102; PULSE 102; RESP 19; O2SAT 96
--- NOTE | 2021-12-05 06:39 | ED_ITS ---
HPI - Abdominal Pain General: Chief Complaint: Abdominal Pain Stated Complaint: tightness in stomach/vomiting Time Seen by Provider: 12/05/21 06:33 Source: patient Mode of arrival: ambulatory Limitations: no limitations History of Present Illness: 61-year-old presents emergency room complaining of epigastric discomfort with recurrent nausea and vomiting. He is not had any hematemesis or coffee-ground emesis. States pain is worse when he eats. He has not really found anything that relieves it is not taking anything to relieve it denies hematochezia melena. No dysuria urgency or frequency denies chest pain. MD elicited complaint: abdominal pain Onset (ago): day(s) (1) Pain Consistency: intermittent Location: Epigastric Severity: mild Quality: cramping Radiation: none Migration to: no migration Exacerbating factors: eating Relieving factors: nothing Associated Symptoms: Reports change in stool character, GI cramping, diarrhea, nausea, poor appetite and vomiting; Denies anorexia, belching, bloating, change in bowel habits, chills, coffee ground emesis, constipation, dyspepsia, dysuria, excessive flatus, fever(s), heartburn, hematochezia, hematuria, hematemesis, fecal incontinence, loose stools, melena and syncope Review of Systems Const: Denies: fever(s) or chills ENMT: Denies: throat pain, ear or mastoid pain, nasal discharge or nasal congestion Card: Denies: syncope Resp: Denies: dyspnea, productive cough or non-productive cough GI: Reports: nausea, vomiting, diarrhea, GI cramping and change in stool character; Denies: hematemesis, coffee ground emesis, heartburn, constipation, bloating, belching, excessive flatus, fecal incontinence, change in bowel habits, hematochezia or melena : Denies: dysuria or hematuria Skin/Breast: Denies: rash or pruritus PFSH ED PFSH: Medical History (Updated 12/05/21 @ 08:49 by Tutu Le DO) Diabetes Hypertension Social History Smoking and tobacco status: never smoked Physical Exam Const: COMMON NORMALS: no acute distress GENERAL APPEARANCE: cooperative and comfortable ORIENTATION/CONSCIOUSNESS: Yes awake, Yes oriented to person, Yes oriented to place and Yes oriented to time HENMT: COMMON NORMALS: normocephalic, atraumatic, hearing grossly normal bilaterally, external ears normal, EAC's normal, TM's normal bilaterally, Normal nasal mucous membranes and turbinates present, moist oral mucous membranes and oropharynx normal HEAD & SCALP: normocephalic and atraumatic NOSE: Normal nasal mucous membranes and turbinates present EXTERNAL EAR: Yes external ears normal EXTERNAL AUDITORY CANAL: EAC's normal TYMPANIC MEMBRANE: TM's normal bilaterally Eye: COMMON NORMALS: Equal, round and reactive pupils present, EOMs intact bilaterally, conjunctivae normal and no scleral icterus CONJUNCTIVA: Yes conjunctivae normal PUPIL: Yes Equal, round and reactive pupils present Neck/C-Spine: COMMON NORMALS: full ROM, no lymphadenopathy, supple and no JVD Lymph: LYMPHATIC: no lymphadenopathy noted and no lymphedema noted Resp: COMMON NORMALS: normal respiratory effort, No retractions, No use of accessory muscles and clear to auscultation bilaterally AUSCULTATION: clear to auscultation bilaterally Cardio: COMMON NORMALS: no JVD, regular rate, regular rhythm and No murmurs present (Cardio) RATE: regular rate RHYTHM: regular rhythm GI: COMMON NORMALS: Soft to palpation and No hepatosplenomegaly present AUSCULTATION: Yes normoactive bowel sounds PALPATION: Yes Soft to palpation, No Tenderness to palpation present (GI), No Guarding due to palpation present (GI) and Yes No hepatosplenomegaly present Extremity: COMMON NORMALS: normal to inspection, capillary refill normal, no clubbing, cyanosis or edema, no calf tenderness and no pedal edema Neuro: SENSORIUM/ORIENTATION: Yes oriented to person, Yes oriented to place and Yes oriented to time Skin: COMMON NORMALS: no rashes or lesions noted GENERAL SKIN EXAM: no rashes or lesions noted Course Vital Signs: Vital signs: Vital Signs Temperature 97.6 F 12/05/21 06:25 Pulse Rate 102 H 12/05/21 06:28 Respiratory Rate 19 H 12/05/21 06:28 Blood Pressure 184/102 12/05/21 06:28 Pulse Oximetry 96 12/05/21 06:28 MDM - Abdominal Pain Medical Decision Making CT reviewed labs reviewed. Suspect patient is diabetic gastroparesis large amount of food content in the stomach he has not eaten yet this morning. Was started on Reglan as well as Protonix. Have him follow-up with his primary care doctor return for further problems. Medical Records I reviewed the patient's medical records. Lab Data I reviewed the patient's lab results. : 12/05/21 06:36 12/05/21 06:36 Labs/Radiology: Radiology Impressions Abdomen/Pelvis CT 12/05/21 06:45 IMPRESSION: 1. Mild enlargement of the RIGHT hepatic lobe with diffuse fatty infiltration. 2. Prior cholecystectomy. 3. Distended stomach with food products. 4. Fluid-filled loops of small bowel in the midabdomen and LEFT upper quadrant with mucosal enhancement can be seen with mild small bowel enteritis. No evidence of bowel obstruction. 5. Prior appendectomy. 6. Mild prostate enlargement with diffuse bladder wall thickening can be seen with chronic cystitis or bladder outlet obstruction. Bladder is decompressed. Laboratory Results WBC 9.9 10^3/uL (4.0-10.0) 12/05/21 06:36 RBC 4.05 10^6/uL (4.1-5.3) L 12/05/21 06:36 Hgb 12.2 g/dL (11.7-16.6) 12/05/21 06:36 Hct 35.9 % (42.0-52.0) L 12/05/21 06:36 MCV 88.6 fl (80-94) 12/05/21 06:36 MCH 30.1 pg (28.0-34.0) 12/05/21 06:36 MCHC 34.0 g/dL (30.0-36.0) 12/05/21 06:36 RDW 13.1 % (12.1-15.1) 12/05/21 06:36 Plt Count 368 10^3/cmm (130-400) 12/05/21 06:36 MPV 8.9 fL (7.4-10.4) 12/05/21 06:36 Neut % (Auto) 74.6 % 12/05/21 06:36 Lymph % (Auto) 17.6 % 12/05/21 06:36 [place] % (Auto) 5.8 % 12/05/21 06:36 Eos % (Auto) 1.3 % 12/05/21 06:36 Baso % (Auto) 0.4 % 12/05/21 06:36 Neut # (Auto) 7.37 10^3/uL (1.8-7.7) 12/05/21 06:36 Lymph # (Auto) 1.7 10^3/uL (0.8-4.8) 12/05/21 06:36 [place] # (Auto) 0.6 10^3/uL (0.2-0.9) 12/05/21 06:36 Eos # (Auto) 0.1 10^3/uL (0.0-0.8) 12/05/21 06:36 Baso # (Auto) 0.0 10^3/uL (0.0-0.1) 12/05/21 06:36 Nucleated RBC % (auto) 0 % 12/05/21 06:36 Nucleated RBCs # 0.0 /100WBC 12/05/21 06:36 Sodium 139 mmol/L (136-145) 12/05/21 06:36 Potassium 3.6 mmol/L (3.5-5.1) 12/05/21 06:36 Chloride 102 mmol/L (98-107) 12/05/21 06:36 Carbon Dioxide 25 mmol/L (22-29) 12/05/21 06:36 Anion Gap 15.6 (5-19) 12/05/21 06:36 BUN 23 mg/dL (8-23) 12/05/21 06:36 Creatinine 1.1 mg/dL (0.7-1.2) 12/05/21 06:36 GFR Calculation 68.1 mL/min (90-130) L 12/05/21 06:36 Glucose 199 mg/dL (65-115) H 12/05/21 06:36 Calculated Osmolality 297 mOsm/kg (285-295) H 12/05/21 06:36 Calcium 8.7 mg/dL (8.5-10.5) 12/05/21 06:36 Total Bilirubin 1.0 mg/dL (0.15-1.2) 12/05/21 06:36 AST 32 U/L (0-40) 12/05/21 06:36 ALT 37 U/L (0-41) 12/05/21 06:36 Alkaline Phosphatase 94 IU/L (40-130) 12/05/21 06:36 Total Protein 7.2 g/dL (6.6-8.7) 12/05/21 06:36 Albumin 4.6 g/dL (3.5-5.2) 12/05/21 06:36 Globulin 2.6 g/dL (1.3-4.6) 12/05/21 06:36 Lipase 41 U/L (13-60) 12/05/21 06:36 Urine Color Yellow (Yellow) 12/05/21 08:00 Urine Appearance Clear (CLEAR) 12/05/21 08:00 Urine pH 5 (5-7) 12/05/21 08:00 Ur Specific [place] 1.020 (1.005-1.030) 12/05/21 08:00 Urine Protein Trace (Negative) 12/05/21 08:00 Urine Glucose (UA) Norm (Normal) 12/05/21 08:00 Urine Ketones Negative (Negative) 12/05/21 08:00 Urine Blood Neg (Negative) 12/05/21 08:00 Urine Nitrate Negative (Negative) 12/05/21 08:00 Urine Bilirubin Neg (Negative) 12/05/21 08:00 Urine Urobilinogen Norm mg/dL (Negative) 12/05/21 08:00 Ur Leukocyte Esterase Negative (Negative) 12/05/21 08:00 Urine RBC 0-4 /hpf (0-2) H 12/05/21 08:00 Urine WBC 0-4 /hpf (0-5) H 12/05/21 08:00 Ur Squamous Epith Cells 0-4 /hpf (0-5) H 12/05/21 08:00 Amorphous Sediment Not Reportable 12/05/21 08:00 Urine Bacteria Trace /hpf (NONE) 12/05/21 08:00 Hyaline Casts 0-4 /lpf H 12/05/21 08:00 Urine Mucus 1+ /hpf 12/05/21 08:00 Discharge Plan Discharge Patient Disposition: Home Clinical Impression: Diabetic gastroparesis, Diabetes, Hypertension Condition: Stable Prescriptions: New Reglan 10 mg tablet 10 mg PO Q6H PRN (Reason: nausea and vomiting) Qty: 30 0RF Protonix 40 mg tablet,delayed release (DR/EC) 40 mg PO DAILY Qty: 30 0RF No Action sulfamethoxazole-trimethoprim [Bactrim DS] 800-160 mg tablet 1 tab PO Q12H Qty: 14 0RF multivitamin Tablet 1 tab PO DAILY 0RF atorvastatin 40 mg tablet 40 mg PO DAILY 0RF Lantus U-100 Insulin 100 unit/mL solution 30 unit SUBCUT DAILY 0RF Vicky Allergy 60 mg Tablet 60 mg PO DAILY 0RF meloxicam 15 mg Tablet 15 mg PO BEDTIME 0RF glipizide 10 mg tablet 10 mg PO BID 0RF terbinafine HCl 250 mg tablet 250 mg PO DAILY 0RF amlodipine 10 mg tablet 10 mg PO DAILY 0RF metformin 500 mg Tablet Extended Release 24 Hr 1,000 mg PO BID 0RF losartan-hydrochlorothiazide 100-12.5 mg Tablet 1 tab PO DAILY 0RF aspirin 81 mg Tablet,Chewable 81 mg PO DAILY 0RF Discharge Orders: Discharge ED (Routine); Ordered 12/05/21 Ordered By: Tutu Le Referrals: Babita Rangel MD [Primary Care Provider] - Discharge Diet: Diabetic Patient Instructions: Opioid Safety Activity Restrictions/Additional Instructions: Start Reglan to use as needed for stomach discomfort use Protonix daily. Follow-up with your primary care doctor for long-term management of diabetic gastroparesis. Coding Level of Care Code ED Tunnel Kiln Operator for Chg Fwd Exam Comprehensive
--- NOTE | 2021-12-05 06:45 | CT_ITS ---
WS: [id number] CT ABDOMEN PELVIS TECHNIQUE: Contrast-enhanced CT of the abdomen and pelvis with coronal and sagittal reformatted image s. CLINICAL INFORMATION: abd pain COMPARISON: CT 5 DLP: 1850.[address] scans at [facility] use at least one of these dose optimization techniques: automated e xposure control; mA and/or kV adjustment per patient size (includes targeted exams where dose is matc hed to clinical indication); or iterative reconstruction. FINDINGS: Mild diffuse fatty infiltration liver. Enlarged RIGHT hepatic lobe. Prior cholecystectomy. Normal por aleah vein and splenic vein. Distended stomach with food products. Normal GE junction. Bibasilar atelec tasis. Normal spleen. Normal pancreatic parenchymal enhancement. Normal celiac and SMA. Adrenal gland s are normal. Normal renal parenchymal enhancement. No hydronephrosis. Normal caliber abdominal aorta . Celiac and SMA are patent. Normal sigmoid colon. No evidence of high-grade small or large bowel obstruction. Prior appendectomy. Fluid distended loops of small bowel in the midabdomen and left upper quadrant with mucosal enhancem ent can be seen with mild small bowel enteritis. Mild diffuse bladder wall thickening can be seen wit h bladder outlet obstruction or chronic cystitis. Mild prostate enlargement measuring 4.2 CM. Degener ative disc disease lumbar spine. CT/CT abdomen pelvis w con* [id number] IMPRESSION: 1. Mild enlargement of the RIGHT hepatic lobe with diffuse fatty infiltration. 2. Prior cholecystectomy. 3. Distended stomach with food products. 4. Fluid-filled loops of small bowel in the midabdomen and LEFT upper quadrant with mucosal enhancement can be seen with mild small bowel enteritis. No evide nce of bowel obstruction. 5. Prior appendectomy. 6. Mild prostate enlargement with diffuse bladder wall thickening can be seen with chronic cystitis or bladder outlet obstruction. Bladder is decompressed.
[2021-12-05] MEDS: lidocaine 2% viscous 15 ML, aluminum-mag hydrox-simethicon 30 ML, sucralfate oral liq 1 GM PO (07:03)
[2021-12-05] MEDS: ondansetron 2 mg/ML SDV 2 mL 4 MG IVP (07:04)
[2021-12-05] MEDS: famotidine 20 mg/2 mL INJ 40 MG IVP (07:04)
[2021-12-05 07:08] LABS: Basophils % 0.4 %; Eosinophils # 0.1 10^3/uL (0.0-0.8); Eosinophils % 1.3 %; Hematocrit 35.9 % (42.0-52.0); Hemoglobin 12.2 g/dL (11.7-16.6); Lymphocytes # 1.7 10^3/uL (0.8-4.8); Lymphocytes % 17.6 %; Mean Corpuscular Hemoglobin 30.1 pg (28.0-34.0); Mean Corpuscular Volume 88.6 fl (80-94); Mean Platelet Volume 8.9 fL (7.4-10.4); Monocytes # 0.6 10^3/uL (0.2-0.9); Monocytes % 5.8 %; Neutrophils # 7.37 10^3/uL (1.8-7.7); Neutrophils % 74.6 %; Nucleated Red Blood Cells % 0 %; Platelet Count 368 10^3/cmm (130-400); Red Blood Count 4.05 10^6/uL (4.1-5.3); Red Cell Distribution Width 13.1 % (12.1-15.1); White Blood Count 9.9 10^3/uL (4.0-10.0)
[2021-12-05 07:21] LABS: Alanine Aminotransferase 37 U/L (0-41); Albumin Level 4.6 g/dL (3.5-5.2); Alkaline Phosphatase 94 IU/L (40-130); Anion Gap 15.6 (5-19); Aspartate Amino Transferase 32 U/L (0-40); Blood Urea Nitrogen 23 mg/dL (8-23); Calcium 8.7 mg/dL (8.5-10.5); Carbon Dioxide 25 mmol/L (22-29); Chloride 102 mmol/L (98-107); Globulin 2.6 g/dL (1.3-4.6); Glomerular Filtration Rate 68.1 mL/min (90-130); Glucose 199 mg/dL (65-115); Lipase 41 U/L (13-60); Osmolality Calculated 297 mOsm/kg (285-295); Potassium 3.6 mmol/L (3.5-5.1); Sodium 139 mmol/L (136-145); Total Protein 7.2 g/dL (6.6-8.7)
[2021-12-05] MEDS: iohexol 300 mg/mL 100 mL Btl IV (08:03)
[2021-12-05 08:09] LABS: Add Urine Microscopic? YES; Bilirubin Urine Neg (Negative); Blood Urine Neg (Negative); Glucose Urine UA Norm (Normal); Ketones Urine Negative (Negative); Leukocyte Esterase Urine Negative (Negative); Nitrate Urine Negative (Negative); Protein Urine Trace (Negative); Urine Appearance Clear (CLEAR); Urine Color Yellow (Yellow); Urobilinogen Urine Norm (Negative); pH Urine 5 (5-7)
[2021-12-05 08:19] LABS: Bacteria Urine TRACE /hpf; RBC Urine 0-4 /hpf (0-2); Squamous Epithelial Cell Urine 0-4 /hpf (0-5); WBC Urine 0-4 /hpf (0-5)
[2021-12-05 08:20] LABS: Add Urine Culture? No; Hyaline Casts Urine 0-4 /lpf; Mucus Urine 1+ /hpf
[2021-12-05 09:02] VITALS: BP 140/89; PULSE 103; RESP 16; O2SAT 98
== END 2021-12-05 09:04 | disposition home or self-care (01) ==
PROVIDERS: Emergency Provider Family Medicine; PCP Family Medicine
DX: E11.43 Type 2 diabetes mellitus with diabetic autonomic (poly)neuropathy (principal); K31.84 Gastroparesis; I10 Essential (primary) hypertension; Z79.4 Long term (current) use of insulin; Z79.84 Long term (current) use of oral hypoglycemic drugs
CPT/HCPCS: 74177; 80053; 81001; 83690; 85025; 96374; 96375; 99283; J2405; J3490; Q9967

== ENCOUNTER 2024-07-29 05:10 | Emergency (ER) | payer SELFPAY ==
[2024-07-29 05:20] VITALS: BP 200/138; PULSE 128; RESP 18; TEMP 36.7; O2SAT 95; BMI 27.8
[2024-07-29] MEDS: HYDROcodone-acetaminophen 5-325 mg Tablet 1 TAB PO (06:02)
--- NOTE | 2024-07-29 06:02 | ED_ITS ---
HPI - Extremity Problem General: Chief complaint: Extremity Problem,Nontraumatic Stated complaint: behind big toe swollen right foot Time Seen by Provider: 07/29/24 05:39 Source: patient Mode of arrival: ambulatory Limitations: no limitations History of Present Illness: 64-year-old male states he has had right great toe pain since yesterday. States been a sharp pain pain is much worse with palpation or movement denies any injuries she denies any fever. States pain is currently a 6 out of 10. Associated symptoms: Deny chest pain, fever(s) or rash Related Data Home Medications Medication Instructions Recorded Confirmed aspirin 81 mg chewable tablet 81 mg PO DAILY 07/19/20 05/31/21 amlodipine 10 mg tablet 10 mg PO DAILY 05/31/21 05/31/21 atorvastatin 40 mg tablet 40 mg PO DAILY 05/31/21 05/31/21 fexofenadine 60 mg tablet (Vicky 60 mg PO DAILY 05/31/21 05/31/21 Allergy) glipizide 10 mg tablet 10 mg PO BID 05/31/21 05/31/21 insulin glargine 100 unit/mL 30 unit SUBCUT DAILY 05/31/21 05/31/21 subcutaneous solution (Lantus U-100 Insulin) losartan 100 1 tab PO DAILY 05/31/21 05/31/21 mg-hydrochlorothiazide 12.5 mg tablet meloxicam 15 mg tablet 15 mg PO BEDTIME 05/31/21 05/31/21 metformin 500 mg tablet,extended 1,000 mg PO BID 05/31/21 05/31/21 release 24 hr multivitamin 1 tab PO DAILY 05/31/21 05/31/21 terbinafine HCl 250 mg tablet 250 mg PO DAILY 05/31/21 05/31/21 Previous Rx's Medication Instructions Recorded sulfamethoxazole 800 1 tab PO Q12H #14 tabs 05/27/21 mg-trimethoprim 160 mg tablet (Bactrim DS) metoclopramide HCl 10 mg tablet 10 mg PO Q6H PRN nausea and 12/05/21 (Reglan) vomiting #30 tabs pantoprazole 40 mg tablet,delayed 40 mg PO DAILY #30 tabs 12/05/21 release (Protonix) colchicine 0.6 mg tablet 1.2 mg (2 x 0.6 mg) PO BID #10 tabs 07/29/24 hydrocodone 5 mg-acetaminophen 325 1 tab PO Q6H PRN pain #14 tabs 07/29/24 mg tablet Allergies Allergy/AdvReac Type Severity Reaction Status Date / Time No Known Allergies Allergy Verified 07/29/24 05:22 Review of Systems Const: Denies: fever(s), chills, body aches or change in appetite ENMT: Denies: throat pain or dental pain Card: Denies: chest pain Resp: Denies: dyspnea GI: Denies: abdominal pain, nausea, vomiting or diarrhea Musc: Reports: extremity pain; Denies: neck pain or back pain Skin/Breast: Denies: rash Neuro: Denies: headache(s) PFSH ED PFSH: Medical History Hypertension Diabetes Social History Smoking and tobacco/nicotine status: never used tobacco/nicotine Physical Exam Const: COMMON NORMALS: no acute distress, patient oriented x3 and healthy appearing HENMT: COMMON NORMALS: normocephalic and atraumatic HEAD & SCALP: normocephalic and atraumatic Neck/C-Spine: COMMON NORMALS: full ROM and supple Chest: COMMONS NORMALS: normal inspection of the chest Resp: COMMON NORMALS: normal respiratory effort Cardio: COMMON NORMALS: regular rate, regular rhythm and No murmurs present (Cardio) RATE: regular rate RHYTHM: regular rhythm Extremity: COMMON NORMALS: full ROM NARRATIVE EXTREMITY EXAM: Tenderness base of the right great toe Neuro: COMMON NORMALS: patient oriented x3, moves all extremities and no focal motor deficits Psych: COMMON NORMALS: mental status grossly normal, Normal thought process present and cooperative THOUGHT PROCESS: Normal thought process present Skin: COMMON NORMALS: no rashes or lesions noted and no wounds GENERAL SKIN EXAM: no rashes or lesions noted Course Vital Signs: Vital signs: Vital Signs Temperature 98.0 F 07/29/24 05:20 Pulse Rate 128 H 07/29/24 05:20 Respiratory Rate 18 07/29/24 05:20 Blood Pressure 200/138 07/29/24 05:20 Pulse Oximetry 95 07/29/24 05:20 Oxygen Delivery Me thod Room Air 07/29/24 05:20 MDM - Extremity (Nontraumatic) Medical Decision Making Patient presents with pain of his right great toe is likely gout we will start him on colchicine pain medicine he is stable for discharge follow-up with PCP return if worsening he understands agrees to plan. Medical Records I reviewed the patient's medical records. No radiology studies performed this visit Discharge Plan Discharge Patient Disposition: Home Clinical Impression: Pain of right great toe Condition: Stable Prescriptions: New hydrocodone-acetaminophen 5-325 mg tablet 1 tab PO Q6H PRN (Reason: pain) Qty: 14 0RF colchicine 0.6 mg tablet 1.2 mg PO BID Qty: 10 0RF No Action sulfamethoxazole-trimethoprim [Bactrim DS] 800-160 mg tablet 1 tab PO Q12H Qty: 14 0RF multivitamin Tablet 1 tab PO DAILY atorvastatin 40 mg tablet 40 mg PO DAILY Lantus U-100 Insulin 100 unit/mL solution 30 unit SUBCUT DAILY Vicky Allergy 60 mg Tablet 60 mg PO DAILY meloxicam 15 mg Tablet 15 mg PO BEDTIME glipizide 10 mg tablet 10 mg PO BID terbinafine HCl 250 mg tablet 250 mg PO DAILY amlodipine 10 mg tablet 10 mg PO DAILY metformin 500 mg Tablet Extended Release 24 Hr 1,000 mg PO BID losartan-hydrochlorothiazide 100-12.5 mg Tablet 1 tab PO DAILY aspirin 81 mg Tablet,Chewable 81 mg PO DAILY Reglan 10 mg tablet 10 mg PO Q6H PRN (Reason: nausea and vomiting) Qty: 30 0RF Protonix 40 mg tablet,delayed release (DR/EC) 40 mg PO DAILY Qty: 30 0RF Discharge Orders: Discharge ED (Routine); Ordered 07/29/24 Ordered By: Felisha Gibson Referrals: Babita Rangel MD [Primary Care Provider] - 4-7 days Discharge Diet: Advance as tolerated Discharge Activity: Resume usual activity Patient Instructions: Gout (ED) Coding Level of Care Code ED Air Cargo Specialist Supervisor for Sweta Alvarez
[2024-07-29 06:05] VITALS: BP 183/120; PULSE 115; O2SAT 94
== END 2024-07-29 06:07 | disposition home or self-care (01) ==
PROVIDERS: Emergency Provider Emergency Medicine; PCP Family Medicine
DX: M79.674 Pain in right toe(s) (principal); Z79.84 Long term (current) use of oral hypoglycemic drugs
CPT/HCPCS: 99283

== ENCOUNTER 2024-08-05 12:22 | Inpatient (IN) | payer SELFPAY ==
[2024-08-05] VITALS (7 sets, daily range): BP systolic 148–183; BP diastolic 91–122; PULSE 106–125; RESP 16–17; TEMP 36.7–36.8; O2SAT 93–97; BMI 27.8; BMI 27.3
--- NOTE | 2024-08-05 12:23 | XRR_ITS ---
PROCEDURE INFORMATION: Exam: XR Right Foot Exam date and time: 08/05/2024 1:07 PM Age: 64 years old Clinical indication: Swelling, leg or foot TECHNIQUE: Imaging protocol: Radiologic exam of the right foot. Views: 3 or more views. COMPARISON: No relevant prior studies available. FINDINGS: Bones/joints: Moderate right inferior calcaneal spur. Small right posterior calcaneal enthesophyte. Otherwise, unremarkable. Soft tissues: Moderate soft tissue swelling mid and distal right foot. Otherwise, unremarkable soft tissues. XR/XR foot RT min 3V* [id number] IMPRESSION: 1. Moderate soft tissue swelling mid and distal right foot. 2. No other acute findings.
[2024-08-05 13:10] LABS: Basophils # 0.1 10^3/uL (0.0-0.1); Basophils % 0.3 %; Eosinophils # 0.1 10^3/uL (0.0-0.8); Eosinophils % 0.7 %; Hematocrit 38.3 % (37-53); Lymphocytes # 1.6 10^3/uL (0.8-4.8); Lymphocytes % 7.4 %; Mean Corpuscular HGB Conc 33.9 g/dL (30-55); Mean Corpuscular Hemoglobin 28.7 pg (27-33); Mean Corpuscular Volume 84.5 fl (82-101); Monocytes # 1.5 10^3/uL (0.2-0.9); Monocytes % 6.8 %; Neutrophils % 82.9 %; Nucleated Red Blood Cells % 0 %; Platelet Count 441 10^3/cmm (157-399); Red Blood Count 4.53 10^6/uL (3.85-5.65); Red Cell Distribution Width 12.2 % (12.1-15.1); White Blood Count 21.48 10^3/uL (3.29-11.43)
[2024-08-05 13:12] LABS: Erythrocyte Sedimentation Rate 90 mm/hr (0-10)
--- NOTE | 2024-08-05 13:18 | ECG_ITS ---
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 Measurements Intervals [place] Rate: 102 P: 47 DE: 140 QRS: 22 QRSD: 111 T: 61 QT: 393 QTc: 512 Interpretive Statements SINUS TACHYCARDIA MODERATE INTRAVENTRICULAR CONDUCTION DELAY [110+ ms QRS DURATION] MINIMAL VOLTAGE CRITERIA FOR LVH, CONSIDER NORMAL VARIANT [MEETS CRITERIA IN ONE OF: R(aVL), S(V1), R(V5), R(V5/V6)+S(V1)] NONSPECIFIC T-WAVE ABNORMALITY ABNORMAL RHYTHM ECG No previous ECG available for comparison Electronically Signed On 08-05-2024 19:29:32 COMMERCIAL PEST CONTROL REPRESENTATIVE by Thony Qureshi M.D. [id number]
--- NOTE | 2024-08-05 13:31 | W.ED.EXTPRO ---
Documented by User: OBED Krishna 08/05/24 16:05 HPI - Extremity Problem General: Chief complaint: Extremity Problem,Nontraumatic Stated complaint: Right foot swollen Time Seen by Provider: 08/05/24 13:14 Source: patient Mode of arrival: ambulatory Limitations: no limitations History of Present Illness: Patient presents emergency department today for evaluation treatment of continued swelling, redness, and pain of his right foot. Patient was seen here in the emergency department on 07/29 after complaints of approximately 24 hours of redness affecting the right first MTP joint. Examination that time was consistent with concerns for gout and patient was treated with pain medication of colchicine. Patient states he took all of his medication as prescribed. Indicated he might of had a little bit of improvement right at first but, has since continued to have swelling and redness. States it really got bad Saturday night and has continued to progress. Patient describes his pain as 2 out of 10 but is groaning, wincing and grimacing on his physical examination. He is ambulatory with a cane here in the emergency department. While he is afebrile he is tachycardic. Blood pressure stable. Patient is a diabetic but, does not recall any type of puncture or injury prior to onset. Patient's examination on 07/29 found no signs of any open skin wounds or punctures at that time. Redness was limited to the base of the right great toe. Related Data Home Medications Medication Instructions Recorded Confirmed aspirin 81 mg chewable tablet 81 mg PO DAILY 07/19/20 08/05/24 acetaminophen 325 mg tablet 325 mg PO QID PRN Pain 08/05/24 08/05/24 (Tylenol) naproxen sodium 220 mg tablet 220 mg PO BID PRN Pain 08/05/24 08/05/24 (Aleve) Previous Rx's Medication Instructions Recorded colchicine 0.6 mg tablet 1.2 mg (2 x 0.6 mg) PO BID #10 tabs 07/29/24 Allergies Allergy/AdvReac Type Severity Reaction Status Date / Time No Known Allergies Allergy Verified 07/29/24 05:22 Review of Systems General: Reports: 10 or more systems reviewed and unremarkable except in HPI and below PFSH ED PFSH: Medical History Hypertension Diabetes Social History Smoking and tobacco/nicotine status: never used tobacco/nicotine Physical Exam Const: COMMON NORMALS: no acute distress, patient oriented x3 and alert HENMT: COMMON NORMALS: normocephalic, atraumatic and hearing grossly normal bilaterally HEAD & SCALP: normocephalic and atraumatic Eye: COMMON NORMALS: Equal, round and reactive pupils present, EOMs intact bilaterally and conjunctivae normal CONJUNCTIVA: Yes conjunctivae normal PUPIL: Yes Equal, round and reactive pupils present Neck/C-Spine: COMMON NORMALS: full ROM and no JVD Lymph: LYMPHATIC: no lymphadenopathy noted Resp: COMMON NORMALS: normal respiratory effort, No retractions and No use of accessory muscles Cardio: COMMON NORMALS: no JVD and regular rate RATE: regular rate Extremity: NARRATIVE EXTREMITY EXAM: Patient with tight erythema and swelling to the dorsum of the right foot. It is tender on palpation. Patient also tender to palpation in the plantar aspect in the arch on palpation. Patient still has flexion extension capabilities of the toes on the right foot as well as flexion extension at the ankle. Patient presented weightbearing with cane assist. Neuro: COMMON NORMALS: patient oriented x3 SENSORIUM/ORIENTATION: Yes alert Psych: COMMON NORMALS: mental status grossly normal, Normal thought process present, cooperative and normal affect THOUGHT PROCESS: Normal thought process present Skin: NARRATIVE SKIN EXAM: Patient has diffuse erythema affecting the dorsum of the right foot. There is appreciable swelling but a large area of fluctuance extending from the first MTP joint proximally to the midfoot and extending medially to approximately center of the forefoot. Moving fluid is visible underneath the skin on palpation. There are 2 small spots in the midportion of the forefoot that are slightly crusted. Patient reported a scant amount of spontaneous draining from these spots earlier. No active draining or bleeding visible. Patient also has a grouping of vascular petechiae affecting the right medial, distal lower extremity. There is no increase in swelling in this area. Course Vital Signs: Vital signs: Vital Signs Temperature 98.0 F 08/05/24 12:46 Pulse Rate 109 H 08/05/24 17:02 Respiratory Rate 16 08/05/24 17:02 Blood Pressure 168/122 08/05/24 17:02 Pulse Oximetry 97 08/05/24 17:02 Oxygen Delivery Me thod Room Air 08/05/24 14:06 MDM - Extremity (Nontraumatic) Medical Decision Making Patient presented to the emergency department today for concerns of continued swelling and redness of the right foot. Patient reports he took all of his colchicine and pain medication. Last pain medication was yesterday stating he took Tylenol and ibuprofen. Patient reports no fever. He has extensive erythema and a large area of fluctuance to the dorsal aspect of the distal, medial portion of the right foot. Dr. Gibson is familiar with this patient as he performed the initial evaluation on 07/29 and recalled the patient's examination. Patient was found to have an elevated white blood cell count from lab work obtained during triage. He went to see the patient at bedside and performed a secondary bedside evaluation. Dr. Gibson kindly assisted with care of this patient here in the emergency department today. He has reached out to specialty care and, after speaking with Dr. Tompkins, has got the patient admitted for concerns of acute worsening and cellulitis/abscess in a diabetic right foot. Patient's labs are beginning to come in. Patient's glucose is 480. I did see on his medications list that he has insulin listed. I went back and asked the patient if he has been taking his insulin and reports he has not taken insulin for several years. States he tries to control his blood sugars by watching his diet but, also admits he does not check his blood sugars at home. Patient's potassium is low at 2.8 with a sodium of 128. Anion gap is 21.8. Both myself and Dr. Gibson are aware of these lab findings. Dr. Gibson has placed orders for this patient to include magnesium and oral potassium. Hospitalist is speaking to patient at bedside at this time. He is aware of these new lab findings. After discussion, patient was approved for admission. Dr. Gibson has placed admission orders in on the patient's behalf. Dr. Alicea at bedside performing I&D. Wound culture order has been placed. Will defer further care and intervention of this patient to the hospital/orthopedic services at this time. Differential Diagnosis Likely cellulitis and lower extremity edema; Unlikely herpes zoster Lab Data 08/05/24 12:57 08/05/24 12:57 Radiology Impressions Foot X-Ray 08/05/24 12:23 IMPRESSION: 1. Moderate soft tissue swelling mid and distal right foot. 2. No other acute findings. Laboratory Results WBC 21.48 10^3/uL (3.29-11.43) H 08/05/24 12:57 RBC 4.53 10^6/uL (3.85-5.65) 08/05/24 12:57 Hgb 13.00 g/dL (11.27-16.99) 08/05/24 12:57 Hct 38.3 % (37-53) 08/05/24 12:57 MCV 84.5 fl (82-101) 08/05/24 12:57 MCH 28.7 pg (27-33) 08/05/24 12:57 MCHC 33.9 g/dL (30-55) 08/05/24 12:57 RDW 12.2 % (12.1-15.1) 08/05/24 12:57 Plt Count 441 10^3/cmm (157-399) H 08/05/24 12:57 MPV 9.0 fL (7.4-10.4) 08/05/24 12:57 Neut % (Auto) 82.9 % 08/05/24 12:57 Lymph % (Auto) 7.4 % 08/05/24 12:57 [place] % (Auto) 6.8 % 08/05/24 12:57 Eos % (Auto) 0.7 % 08/05/24 12:57 Baso % (Auto) 0.3 % 08/05/24 12:57 Neut # (Auto) 17.80 10^3/uL (1.8-7.7) H 08/05/24 12:57 Lymph # (Auto) 1.6 10^3/uL (0.8-4.8) 08/05/24 12:57 [place] # (Auto) 1.5 10^3/uL (0.2-0.9) H 08/05/24 12:57 Eos # (Auto) 0.1 10^3/uL (0.0-0.8) 08/05/24 12:57 Baso # (Auto) 0.1 10^3/uL (0.0-0.1) 08/05/24 12:57 Nucleated RBC % (auto) 0 % 08/05/24 12:57 Nucleated RBCs # 0.0 /100WBC 08/05/24 12:57 ESR 90 mm/hr (0-10) H 08/05/24 12:57 Sodium 128 mmol/L (136-145) L 08/05/24 12:57 Potassium 2.8 mmol/L (3.5-5.1) L* 08/05/24 12:57 Chloride 86 mmol/L (98-107) L 08/05/24 12:57 Carbon Dioxide 23 mmol/L (22-29) 08/05/24 12:57 Anion Gap 21.8 (5-19) H 08/05/24 12:57 BUN 10 mg/dL (8-23) 08/05/24 12:57 Creatinine 0.9 mg/dL (0.7-1.2) 08/05/24 12:57 GFR Calculation 85.0 mL/min (90-130) L 08/05/24 12:57 Glucose 479 mg/dL (65-115) H 08/05/24 12:57 Estimat Average Glucose 321 08/05/24 12:57 Hemoglobin A1c 12.8 % (4.0-6.0) H 08/05/24 12:57 Calculated Osmolality 286 mOsm/kg (285-295) 08/05/24 12:57 Lactic Acid 2.6 mmol/L (0.5-2.2) H 08/05/24 12:57 Calcium 8.7 mg/dL (8.5-10.5) 08/05/24 12:57 Magnesium 1.7 mg/dL (1.7-2.3) 08/05/24 12:57 C-Reactive Protein 455.6 mg/L (0.0-4.9) H 08/05/24 12:57 NT-Pro-B Natriuret Pep 1749 pg/mL (0-125) H 08/05/24 12:57 Procalcitonin 0.99 ng/mL (0-0.5) H 08/05/24 12:57 All radiology interpretation(s) finalized by discharge (XR shows no signs of any acute bony abnormality or erosion.) Discharge Plan Discharge Patient Disposition: Admitted As Inpatient Admit Provider: Jhony Caldwell Clinical Impression: Cellulitis, Diabetes Condition: Stable Coding Level of Care Code ED Dental Front Office Assistant for Chg Fwd Documented by User: Felisha Gibson MD 08/05/24 17:15 HPI - Extremity Problem General: Chief complaint: Extremity Problem,Nontraumatic Stated complaint: Right foot swollen Time Seen by Provider: 08/05/24 13:14 Related Data Home Medications Medication Instructions Recorded Confirmed aspirin 81 mg chewable tablet 81 mg PO DAILY 07/19/20 08/05/24 acetaminophen 325 mg tablet 325 mg PO QID PRN Pain 08/05/24 08/05/24 (Tylenol) naproxen sodium 220 mg tablet 220 mg PO BID PRN Pain 08/05/24 08/05/24 (Aleve) Previous Rx's Medication Instructions Recorded colchicine 0.6 mg tablet 1.2 mg (2 x 0.6 mg) PO BID #10 tabs 07/29/24 Allergies Allergy/AdvReac Type Severity Reaction Status Date / Time No Known Allergies Allergy Verified 07/29/24 05:22 [facility] ED PFSH: Medical History Hypertension Diabetes Social History Smoking and tobacco/nicotine status: never used tobacco/nicotine Course Vital Signs: Vital signs: Vital Signs Temperature 98.0 F 08/05/24 12:46 Pulse Rate 109 H 08/05/24 17:02 Respiratory Rate 16 08/05/24 17:02 Blood Pressure 168/122 08/05/24 17:02 Pulse Oximetry 97 08/05/24 17:02 Oxygen Delivery Me thod Room Air 08/05/24 14:06 MDM - Extremity (Nontraumatic) Medical Decision Making Patient presented to the emergency department today for concerns of continued swelling and redness of the right foot. Patient reports he took all of his colchicine and pain medication. Last pain medication was yesterday stating he took Tylenol and ibuprofen. Patient reports no fever. He has extensive erythema and a large area of fluctuance to the dorsal aspect of the distal, medial portion of the right foot. Dr. Gibson is familiar with this patient as he performed the initial evaluation on 07/29 and recalled the patient's examination. Patient was found to have an elevated white blood cell count from lab work obtained during triage. He went to see the patient at bedside and performed a secondary bedside evaluation. Dr. Gibson kindly assisted with care of this patient here in the emergency department today. He has reached out to specialty care and, after speaking with Dr. Tompkins, has got the patient admitted for concerns of acute worsening and cellulitis/abscess in a diabetic right foot. Patient's labs are beginning to come in. Patient's glucose is 480. I did see on his medications list that he has insulin listed. I went back and asked the patient if he has been taking his insulin and reports he has not taken insulin for several years. States he tries to control his blood sugars by watching his diet but, also admits he does not check his blood sugars at home. Patient's potassium is low at 2.8 with a sodium of 128. Anion gap is 21.8. Both myself and Dr. Gibson are aware of these lab findings. Dr. Gibson has placed orders for this patient to include magnesium and oral potassium. Hospitalist is speaking to patient at bedside at this time. He is aware of these new lab findings. After discussion, patient was approved for admission. Dr. Gibson has placed admission orders in on the patient's behalf. Dr. Alicea at bedside performing I&D. Wound culture order has been placed. Will defer further care and intervention of this patient to the hospital/orthopedic services at this time. I saw patient above midlevel. History and physical spoke to Dr. Alicea and Dr. Shirley will admit on IV antibiotics. Lab Data 08/05/24 12:57 08/05/24 12:57 Radiology Impressions Foot X-Ray 08/05/24 12:23 IMPRESSION: 1. Moderate soft tissue swelling mid and distal right foot. 2. No other acute findings. Laboratory Results WBC 21.48 10^3/uL (3.29-11.43) H 08/05/24 12:57 RBC 4.53 10^6/uL (3.85-5.65) 08/05/24 12:57 Hgb 13.00 g/dL (11.27-16.99) 08/05/24 12:57 Hct 38.3 % (37-53) 08/05/24 12:57 MCV 84.5 fl (82-101) 08/05/24 12:57 MCH 28.7 pg (27-33) 08/05/24 12:57 MCHC 33.9 g/dL (30-55) 08/05/24 12:57 RDW 12.2 % (12.1-15.1) 08/05/24 12:57 Plt Count 441 10^3/cmm (157-399) H 08/05/24 12:57 MPV 9.0 fL (7.4-10.4) 08/05/24 12:57 Neut % (Auto) 82.9 % 08/05/24 12:57 Lymph % (Auto) 7.4 % 08/05/24 12:57 [place] % (Auto) 6.8 % 08/05/24 12:57 Eos % (Auto) 0.7 % 08/05/24 12:57 Baso % (Auto) 0.3 % 08/05/24 12:57 Neut # (Auto) 17.80 10^3/uL (1.8-7.7) H 08/05/24 12:57 Lymph # (Auto) 1.6 10^3/uL (0.8-4.8) 08/05/24 12:57 [place] # (Auto) 1.5 10^3/uL (0.2-0.9) H 08/05/24 12:57 Eos # (Auto) 0.1 10^3/uL (0.0-0.8) 08/05/24 12:57 Baso # (Auto) 0.1 10^3/uL (0.0-0.1) 08/05/24 12:57 Nucleated RBC % (auto) 0 % 08/05/24 12:57 Nucleated RBCs # 0.0 /100WBC 08/05/24 12:57 ESR 90 mm/hr (0-10) H 08/05/24 12:57 Sodium 128 mmol/L (136-145) L 08/05/24 12:57 Potassium 2.8 mmol/L (3.5-5.1) L* 08/05/24 12:57 Chloride 86 mmol/L (98-107) L 08/05/24 12:57 Carbon Dioxide 23 mmol/L (22-29) 08/05/24 12:57 Anion Gap 21.8 (5-19) H 08/05/24 12:57 BUN 10 mg/dL (8-23) 08/05/24 12:57 Creatinine 0.9 mg/dL (0.7-1.2) 08/05/24 12:57 GFR Calculation 85.0 mL/min (90-130) L 08/05/24 12:57 Glucose 479 mg/dL (65-115) H 08/05/24 12:57 Estimat Average Glucose 321 08/05/24 12:57 Hemoglobin A1c 12.8 % (4.0-6.0) H 08/05/24 12:57 Calculated Osmolality 286 mOsm/kg (285-295) 08/05/24 12:57 Lactic Acid 2.6 mmol/L (0.5-2.2) H 08/05/24 12:57 Calcium 8.7 mg/dL (8.5-10.5) 08/05/24 12:57 Magnesium 1.7 mg/dL (1.7-2.3) 08/05/24 12:57 C-Reactive Protein 455.6 mg/L (0.0-4.9) H 08/05/24 12:57 NT-Pro-B Natriuret Pep 1749 pg/mL (0-125) H 08/05/24 12:57 Procalcitonin 0.99 ng/mL (0-0.5) H 08/05/24 12:57 Discharge Plan Discharge Patient Disposition: Admitted As Inpatient Admit Provider: Jhony Caldwell Clinical Impression: Cellulitis, Diabetes Condition: Stable Coding Level of Care Code ED Dental Front Office Assistant for Sweta Alvarez
[2024-08-05 13:36] LABS: Anion Gap 21.8 (5-19); Blood Urea Nitrogen 10 mg/dL (8-23); Calcium 8.7 mg/dL (8.5-10.5); Carbon Dioxide 23 mmol/L (22-29); Chloride 86 mmol/L (98-107); Glucose 479 mg/dL (65-115); Osmolality Calculated 286 mOsm/kg (285-295); Sodium 128 mmol/L (136-145)
[2024-08-05 13:38] LABS: Potassium 2.8 mmol/L (3.5-5.1)
[2024-08-05 14:00] LABS: C Reactive Protein 455.6 mg/L (0.0-4.9)
[2024-08-05] MEDS: sodium chloride 0.9% 1,000 ML 999 ML IV (14:00)
[2024-08-05] MEDS: morphine 4 mg/mL SDV 1 mL IVP (14:01)
[2024-08-05] MEDS: lidocaine 1% 10 ML INJ 20 ML SUBCUT (14:03)
--- NOTE | 2024-08-05 14:04 | P.CONIM_ITS ---
Providers/Reason For Consult 2 Consulting Physician/Specialty*: Ladarius Alicea D.P.M./Podiatry Reason for Consult*: Diabetic foot infection with abscess and cellulitis right foot Primary Care Provider: Babita Rangel MD History of Present Illness History of Present Illness Prashant Dangelo is a 64 year old male presenting with increased redness and pain in the right foot, initially noted approximately last . The symptoms accelerated, prompting him to seek emergency medical care. The patient has a history of diabetes mellitus type II, which she attempts to manage through lifestyle modifications, and peripheral neuropathy. He does not routinely check her blood glucose levels and has not had any laboratory work or an A1c test drawn this year until the current visit, where an A1c of 12.8% and a blood glucose level of 479 mg/dL were recorded. Initially, the condition was suspected to be gout last week because of the red, hot, swollen right great toe joint, there was no break in the skin, wound or puncture site but was later identified as an abscess with associated cellulitis. Patient denies any previous infections, amputations, prolonged wound healing, known triggers for the current infection, and any puncture wounds or sores prior to the onset of the current condition. Review of Systems 2 General: Reports: 10 or more systems reviewed and unremarkable except in HPI and below Narrative: - Musculoskeletal: Reports swelling and redness. - Sensory: Reports decreased protective sensation at feet due to diabetic neuropathy. Const: Denies: fever(s) or chills Eyes: Denies: change in vision Card: Denies: chest pain or palpitations Resp: Denies: dyspnea or productive cough GI: Denies: abdominal pain, nausea or vomiting : Denies: flank pain Musc: Reports: extremity swelling, joint stiffness and deformity Skin/Breast: Reports: erythema, sores, changes in skin color, dry skin, nail changes and change in hair Neuro: Reports: numbness in extremities, sensory changes and difficulty walking Psych: Denies: suicidal ideation Endo: Denies: change in body appearance Trevor/Lymph: Denies: tender lymph nodes Medications/Allergies Home Medications Medication Instructions Recorded Confirmed Last Taken Type aspirin 81 mg chewable tablet 81 mg PO DAILY 07/19/20 08/05/24 05/30/21 History colchicine 0.6 mg tablet 1.2 mg (2 x 0.6 mg) PO BID #10 tabs 07/29/24 08/05/24 Unknown Rx acetaminophen 325 mg tablet 325 mg PO QID PRN Pain 08/05/24 08/05/24 Unknown History (Tylenol) naproxen sodium 220 mg tablet 220 mg PO BID PRN Pain 08/05/24 08/05/24 Unknown History (Aleve) Allergies Allergy/AdvReac Type Severity Reaction Status Date / Time No Known Allergies Allergy Verified 07/29/24 05:22 Current Medications Generic Name Dose Route Start Last Admin Trade Name Freq PRN Reason Stop Dose Admin Sodium Chloride 1,000 mls @ 999 mls/hr 08/05/24 13:18 08/05/24 14:00 Sodium Chloride 0.9% IV 08/05/24 14:18 999 mls/hr .Q1H1M ONE Administration PFSH Acute 2 PFSH: Medical History Hypertension Diabetes Social History Smoking and tobacco/nicotine status: never used tobacco/nicotine Vitals/I&O/Wt Last Vital Signs Temp 98.0 F 08/05/24 12:46 Pulse 123 H 08/05/24 12:46 Resp 16 08/05/24 14:01 BP 148/91 08/05/24 12:46 Pulse Ox 96 08/05/24 12:46 O2 Del Method Room Air 08/05/24 12:46 Weight last 48 hrs Weight 200 lb Physical Exam 2 Narrative: GENERAL: Patient is alert and oriented ?3 and in no acute distress. The following is a focused bilateral lower extremity exam. VASCULAR: Dorsalis pedis palpable bilaterally. Posterior tibial arteries palpable bilaterally. Capillary refill time less than 3 seconds to the distal hallux bilaterally. Calf is supple and nontender proximally and distally. Edema to the right forefoot. Warmth to the right forefoot dorsally. NEUROLOGICAL: Protective sensation intact 0/10 sites, tested with [place] Rafael monofilament to bilateral feet. DERMATOLOGICAL: Prior to I&D done bedside there was no break in the integument, no puncture wound, webspaces 1 through 4 right foot were clean, dry and intact, no ingrowing nail, no pressure ulcerations or breakdown in skin there was an obvious palpable abscess with fluctuance at the dorsal aspect of the right first metatarsal phalangeal joint with intense surrounding erythema and cellulitis streaking to the anterior aspect of the right ankle, no lymphangitic streaking up the right leg at this time. MUSCULOSKELETAL: Pain to palpation right dorsal forefoot. There is no crepitus with palpation of soft tissue, there is fluctuance palpable at the abscess dorsal aspect of the right forefoot. Const: COMMON NORMALS: no acute distress, patient oriented x3 and alert HENMT: COMMON NORMALS: normocephalic HEAD & SCALP: normocephalic Eye: COMMON NORMALS: Equal, round and reactive pupils present PUPIL: Yes Equal, round and reactive pupils present Lymph: LYMPHATIC: lymphedema Resp: COMMON NORMALS: normal respiratory effort, No retractions and No use of accessory muscles Cardio: COMMON NORMALS: regular rate and Peripheral pulses 2+ throughout R ATE: regular rate PERIPHERAL PULSES: Peripheral pulses 2+ throughout Extremity: COMMON NORMALS: no calf tenderness; negative for no pedal edema GENERAL: Yes deformity Neuro: COMMON NORMALS: patient oriented x3 SENSORIUM/ORIENTATION: Yes alert SENSORY EXAM: Yes extremities MONOFILAMENT EXAM PERFORMED: Yes MOTOR EXAM: 5/5 motor strength present throughout Psych: COMMON NORMALS: cooperative Skin: COMMON NORMALS: negative for no wounds WOUNDS: Yes wounds noted N AILS: discolored, dystrophic and yellow and thickened Data 08/05/24 12:57 08/05/24 12:57 Other data: - Labs: - White Blood Cell Count: 21.48 x 10^9/L - Hemoglobin A1c: 12.8% - Blood Glucose: 479 mg/dL - Erythrocyte Sedimentation Rate: 90 mm/hr - C-Reactive Protein: 455.6 mg/L - Sodium: 128 - Potassium: 2.8 - Anion Gap: 21.8 - Imaging: - X-ray of the right foot shows moderate soft tissue swelling, no acute osteomyelitis, no foreign body, and no soft tissue emphysema. A&P Assessment and plan (1) Abscess of right foot: Verbal consent obtained from patient for incision and debridement, timeout was performed. Incision and drainage performed under local anesthesia with 20 cc of 1% Lidocaine. 2 cm linear incision performed over the dorsal aspect of the right first metatarsal phalangeal joint performed with a #11 blade and debridement was performed down to myofascial layer sharply and excisionally in nature with expression of purulent drainage, culture and sensitivity tests of purulent discharge were obtained. Admission for IV antibiotic therapy recommended; await culture results to narrow antibiotic therapy. Postdebridement wound dressing Betadine wet-to-dry utilizing Betadine soaked 4 x 4 gauze, Kerlix. (2) Diabetic peripheral neuropathy associated with type 2 diabetes mellitus: (3) Cellulitis of right foot: Plan 64-year-old uncontrolled diabetes mellitus type II male with peripheral neuropathy, presenting with an abscess and cellulitis of the right foot. The condition is complicated by significantly elevated glucose and A1c levels, indicating poor glycemic control. The abscess is palpable with surrounding cellulitis, and the laboratory findings reveal marked leukocytosis and inflammatory markers. The immediate concern is the right foot infection which requires intervention. - Performed I&D of abscess right foot bedside in emergency department, culture of the abscess sent to microbiology - Admission for further management and initiation of IV antibiotics. - Recommend an MRI w/wo contrast of the right foot to evaluate the extent of the infection, contrast would be more beneficial to further evaluate the extent of the abscess and rule out acute osteomyelitis. - Anticipating surgical debridement once MRI is completed. Podiatry will follow Consult Attestations 2 Medical Necessity Statement: The patient's condition, characterized by an abscess and cellulitis of the right foot in the context of poorly controlled diabetes, necessitated prompt intervention. The decision for incision and drainage was based on clinical presentation and imaging findings. Given the systemic inflammatory response indicated by the high white blood cell count and elevated C-reactive protein, immediate empirical IV antibiotic therapy was initiated. MRI imaging is planned to rule out osteomyelitis not visible on X-ray results. The need for hospital admission is critical to manage the infection, achieve glycemic control, and correct electrolyte imbalances. The goal is to reduce infection risk factors, achieve effective infection control, and prevent potential complications. Future management focuses on tightening glycemic control, diabetic education, and lifestyle interventions. Coding Level of Care Code Acute Code for [facility] Diagnoses Abscess of right foot L02.611 Diabetic peripheral neuropathy associated with type 2 diabetes mellitus E11.42 Cellulitis of right foot L03.115 Comment CPT code 77308
[2024-08-05 14:13] LABS: Lactic Sepsis W/Reflex 2.6 mmol/L (0.5-2.2)
[2024-08-05] MEDS: potassium chloride ER 20 mEq Tablet 80 MEQ PO (14:15)
[2024-08-05] MEDS: VANCOMYCIN ADD-Vantage 1,000 MG in 0.9% NaCl ADD-Vantage 250 ML 250 MG IV (14:17)
--- NOTE | 2024-08-05 14:18 | PC.PHAR ---
patient denies taking 80% of all the medications that was on file, all meds were 2 years old no outside source because it had been so long. removed amlodipine 10mg atorvastatin 40 mg glipizide 10mg lantus daily losartan-hctz 100-12.5 metformin 500 protonix 40mg
[2024-08-05 14:21] LABS: Magnesium 1.7 mg/dL (1.7-2.3)
--- NOTE | 2024-08-05 14:24 | PHA.VACGOAL ---
Vancomycin Goal - Goal Vancomycin Goal:: 10-15 mg/L Vancomycin Indication:: Other - Therapy Day of therpy:: Day []of [] . Actual body weight (kg): 200 lb - Data Labs: WBC 21.48 10^3/uL (3.29-11.43) H 08/05/24 12:57 RBC 4.53 10^6/uL (3.85-5.65) 08/05/24 12:57 Hgb 13.00 g/dL (11.27-16.99) 08/05/24 12:57 Hct 38.3 % (37-53) 08/05/24 12:57 MCV 84.5 fl (82-101) 08/05/24 12:57 MCH 28.7 pg (27-33) 08/05/24 12:57 MCHC 33.9 g/dL (30-55) 08/05/24 12:57 RDW 12.2 % (12.1-15.1) 08/05/24 12:57 Sodium 128 mmol/L (136-145) L 08/05/24 12:57 Potassium 2.8 mmol/L (3.5-5.1) L* 08/05/24 12:57 Chloride 86 mmol/L (98-107) L 08/05/24 12:57 Carbon Dioxide 23 mmol/L (22-29) 08/05/24 12:57 Anion Gap 21.8 (5-19) H 08/05/24 12:57 BUN 10 mg/dL (8-23) 08/05/24 12:57 Creatinine 0.9 mg/dL (0.7-1.2) 08/05/24 12:57 GFR Calculation 85.0 mL/min (90-130) L 08/05/24 12:57 Last dialysis session:: N/A Treatment plan:: new consult Regimen:: MAINTENANCE DOSE 1750 MG Q12H PER DOSING PROTOCOL Follow up:: WILL CONTINUE TO MONITOR AND FOLLOW UP DAILY
[2024-08-05 14:30] LABS: NT Pro B Type Natriuretic Pept 1749 pg/mL (0-125); Procalcitonin 0.99 ng/mL (0-0.5)
--- NOTE | 2024-08-05 14:57 | P.HP_ITS ---
Providers/Chief Complaint 2 Primary Care Provider: Babita Rangel MD Chief Complaint: Right foot swollen History of Present Illness Pleasant 64-year-old gentleman with history of diabetes, several years ago he has been on insulin, however, with lack of health insurance and financial difficulty has not been able to continue on insulin and has been managing his diabetes with diet, was assessed in the emergency department on 07/29 with right great toe pain and redness, with suspected gout at that time was prescribed colchicine, hydrocodone, and asked to follow-up with PCP. Today he presents to emergency room with swelling, redness, pain of the right great toe and foot with worsening last Saturday and particular worsening in the last 24 hours. During my visit noted with purulent drainage from dorsal right great toe. He is found to have sinus tachycardia 106, WBC 21.48, lactic acid elevated 2.6. CRP elevated 455.6. Procalcitonin 0.99. Foot x-ray with moderate soft tissue swelling mid and distal right foot. Blood cultures were obtained. He received vancomycin, 1 L fluid bolus. Podiatry is consulted. Review of Systems 2 Const: Reports: chills; Denies: fever(s), body aches or malaise ENMT: Denies: throat pain Card: Denies: chest pain, edema, pre-syncope or dyspnea on exertion Resp: Denies: dyspnea, productive cough, change in phlegm color or hemoptysis GI: Reports: other (Dry heaving); Denies: abdominal pain, nausea, vomiting, diarrhea, constipation, hematochezia or melena : Denies: flank pain, difficulty urinating, urinary frequency or hematuria Musc: Reports: extremity pain and extremity swelling Skin/Breast: Reports: rash, erythema, skin swelling and new lesions Neuro: Denies: headache(s) or dizziness Medications/Allergies Home Medications Medication Instructions Recorded Confirmed Last Taken Type aspirin 81 mg chewable tablet 81 mg PO DAILY 07/19/20 08/05/24 05/30/21 History colchicine 0.6 mg tablet 1.2 mg (2 x 0.6 mg) PO BID #10 tabs 07/29/24 08/05/24 Unknown Rx acetaminophen 325 mg tablet 325 mg PO QID PRN Pain 08/05/24 08/05/24 Unknown History (Tylenol) naproxen sodium 220 mg tablet 220 mg PO BID PRN Pain 08/05/24 08/05/24 Unknown History (Aleve) Allergies Allergy/AdvReac Type Severity Reaction Status Date / Time No Known Allergies Allergy Verified 07/29/24 05:22 PFSH Acute 2 PFSH: Medical History Hypertension Diabetes Social History Smoking and tobacco/nicotine status: never used tobacco/nicotine Vitals/I&O/Wt Last Vital Signs Temp 98.0 F 08/05/24 12:46 Pulse 106 H 08/05/24 14:06 Resp 16 08/05/24 14:06 BP 156/104 08/05/24 14:06 Pulse Ox 94 08/05/24 14:06 O2 Del Method Room Air 08/05/24 14:06 08/04/24 08/05/24 08/05/24 22:59 06:59 14:59 Intake Total 1000 / 1000 Balance 1000 / 1000 Weight last 48 hrs Weight 90.718 kg Physical Exam 2 Const: COMMON NORMALS: patient oriented x3 and alert GENERAL APPEARANCE: c ooperative ORIENTATION/CONSCIOUSNESS: Yes awake HENMT: COMMON NORMALS: oropharynx normal Neck/C-Spine: COMMON NORMALS: no JVD Resp: COMMON NORMALS: normal respiratory effort and clear to auscultation bilaterally AUSCULTATION: clear to auscultation bilaterally Cardio: COMMON NORMALS: no JVD, regular rhythm, S1 normal heart sound present, S2 normal heart sound present and No murmurs present (Cardio) RHYTHM: regular rhythm HEART SOUNDS: S1 normal heart sound present and S2 normal heart sound present GI: COMMON NORMALS: Normal to inspection, nondistended, normoactive bowel sounds present, Soft to palpation and non-tender PALPATION: Yes Soft to palpation Extremity: COMMON NORMALS: no joint enlargement and no pedal edema Neuro: COMMON NORMALS: patient oriented x3 and moves all extremities S ENSORIUM/ORIENTATION: Yes alert Skin: COMMON NORMALS: no rashes or lesions noted NARRATIVE SKIN EXAM: Erythema severe swelling of distal two thirds of the right foot, worse swelling around the right big toe. New opening on the dorsal surface of the right big toe with purulent drainage. GENERAL SKIN EXAM: no rashes or lesions noted Data 08/05/24 12:57 08/05/24 12:57 Micro: Microbiology 08/05/24 13:48 Blood Culture - Preliminary Blood SPECIMEN COLLECTED 08/05/24 13:51 Blood Culture - Preliminary Blood SPECIMEN COLLECTED A&P Assessment and plan (1) Abscess of right foot: Abscess and cellulitis of the right big toe with cellulitis extending to the proximal right foot, with erythema, swelling, warmth, pain, new opening over right big toe with purulent drainage. With possible sepsis with white blood cell count 21.48, sinus tachycardia 125, with lactic acidosis 2.6, with procalcitonin elevated 0.99, with CRP elevated 455.6. ESR is 90. Possible osteomyelitis not excluded. Poorly controlled diabetes, A1c requested. Glucose over 400. Not on insulin due to financial difficulties. Has been controlled diabetes with diet only. Reviewed vitals, CBC, CMP, CRP, magnesium, lactic acid, procalcitonin, beta hydroxybutyrate, foot x-ray, ER physician note, discussed with ER physician, discussed with associate professor of art. Blood cultures been obtained, continue broad-spectrum antibiotic coverage with vancomycin and Zosyn, monitor for risk of kidney injury with antibiotic combination. Reassess blood counts, chemistry. Monitor vitals. Wound culture has been obtained. Follow-up cultures. Pending additional debridement by podiatry. As prescription with podiatry, with patient, concern for possible deeper infection, possible osteomyelitis. Requesting MRI with contrast. (2) Cellulitis of right foot: Purulent cellulitis as above. With uncontrolled diabetes. MRSA coverage provided. (3) Diabetic peripheral neuropathy associated with type 2 diabetes mellitus: Uncontrolled diabetes, controlled only with diet, previously on insulin, but has not been able to continue due to financial difficulties. A1c requested. Blood glucose over 400s. Beta hydroxybutyrate requested. Mild hyponatremia, hypokalemia 2.8. Sinus tachycardia. Will obtain VBG. Possible early DKA. Anion gap noted elevated. Bicarb not significantly decreased to 23. Start insulin sliding scale. Will start Lantus 10 units. Will give IV hydration at current time. Reassess chemistry. Blood glucose. Monitor for risk of hypoglycemia. (4) Hypertension: Received a dose of amlodipine, with sinus tachycardia. Will start additional dose of atenolol 25 mg. Monitor blood pressures. Cardiac diet. (5) Encounter for screening involving social determinants of health (SDoH): Does not have health insurance, discontinued insulin as he could not afford it. Has been trying to control his diabetes with diet alone. Significantly elevated blood glucose. Requesting case management consultation. He states has not been able to qualify for Medicare yet. He is not sure about Medicaid. Attestations 2 Medical Necessity Statement*: Admission of over 2 midnights anticipated for assessment management of complicated infection of right foot with uncontrolled diabetes, possible osteomyelitis, possible early DKA. Coding Level of Care Code Acute Code for [facility] Fwd Diagnoses Abscess of right foot L02.611 Cellulitis of right foot L03.115 Diabetic peripheral neuropathy associated with type 2 diabetes mellitus E11.42 Hypertension I10 Encounter for screening involving social determinants of health (SDoH) Z13.9
[2024-08-05 15:16] LABS: Reflex Lactate Order REFLEX LACTIC ORDERD
[2024-08-05] MEDS: piperacillin-tazobactam 3.375 GM in sodium chloride 0.9% (plus) 50 ML IV ×2 (15:27→22:47)
--- NOTE | 2024-08-05 15:37 | PC.NURSE ---
Patients bp continuing to run elevated in ER. REquesting orders. Per verbal Dr Caldwell verbal order given for Amlodipine 5mg po once. rbvo.
[2024-08-05] MEDS: amlodipine 5 mg Tablet PO (15:42)
[2024-08-05 15:44] LABS: Estmated Average Glucose 321; Hemoglobin A1C 12.8 % (4.0-6.0)
--- NOTE | 2024-08-05 17:38 | PC.NURSE ---
Charge nurse discussed discharge with patient. Discussed medication and activity limitations. Patient verbalized understanding.
[2024-08-05 17:46] LABS: Lactic Acid level (Lactate) 2.6 mmol/L (0.5-2.2)
[2024-08-05] MEDS: magnesium sulfate premix 2 GM/50 ML PIGGYBACK IV (18:32)
[2024-08-05] MEDS: enoxaparin 40 mg/0.4 mL Syringe SUBCUT (18:32)
--- NOTE | 2024-08-05 18:35 | ECG_ITS ---
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 Measurements Intervals [place] Rate: 121 P: 57 [place]: 132 QRS: 44 QRSD: 101 T: 57 QT: 338 QTc: 481 Interpretive Statements SINUS TACHYCARDIA POSSIBLE INFERIOR MYOCARDIAL INFARCTION , PROBABLY OLD [30 ms Q WAVE IN II/aVF] ABNORMAL RHYTHM ECG Compared to ECG 08/05/2024 14:59:13 Myocardial infarct finding now present Intraventricular conduction delay no longer present T-wave abnormality no longer present Electronically Signed On 08-05-2024 19:36:26 [employer]NAGER [employer] by Thony Qureshi M.D. [email or web address]
[2024-08-05 19:06] LABS: Glucose Point of Care 320 mg/dL (70-110)
[2024-08-05] MEDS: atenolol 50 mg Tablet 25 MG PO (19:21)
[2024-08-05] MEDS: insulin lispro 100 unit/1 mL SUBCUT ×2 (19:22→22:46)
[2024-08-05] MEDS: insulin glargine 100 units/1 mL 10 UNIT SUBCUT (19:56)
[2024-08-05] MEDS: sodium chloride 0.9% 1,000 ML 75 ML IV (19:57)
[2024-08-05] MEDS: vancomycin 2,000 MG/400 ML PIGGYBACK 200 MG IV (19:57)
[2024-08-05 20:22] LABS: Base Excess VBG 5.2 mmol/L (-3.0-3.0); Blood Gas Operator Identificat AMH; Blood Gas Sample Site Not specified; Blood Gas Sample Type Venous; HCO3 VBG 28.5 mmol/L (24-28); PCO2 VBG 36.6 mmHg (41-51); PO2 VBG 68.1 mmHg (25-40); Venous Blood Gas Hematocrit 38.5 % (42-52)
[2024-08-05 20:31] LABS: Glucose Point of Care 265 mg/dL (70-110)
[2024-08-05] MEDS: morphine 4 mg/mL SDV 1 mL 2 MG IVP (22:46)
[2024-08-06] VITALS (7 sets, daily range): BP systolic 111–152; BP diastolic 73–92; PULSE 93–108; RESP 16–20; TEMP 36.6–37.7; O2SAT 90–94; BMI 27.5
[2024-08-06 05:09] LABS: Basophils # 0.1 10^3/uL (0.0-0.1); Basophils % 0.3 %; Hematocrit 32.1 % (37-53); Lymphocytes % 11.5 %; Mean Corpuscular HGB Conc 34.3 g/dL (30-55); Mean Corpuscular Hemoglobin 29.7 pg (27-33); Mean Corpuscular Volume 86.8 fl (82-101); Mean Platelet Volume 8.9 fL (7.4-10.4); Monocytes # 2.1 10^3/uL (0.2-0.9); Monocytes % 7.9 %; Neutrophils # 20.55 10^3/uL (1.8-7.7); Neutrophils % 79.3 %; Nucleated Red Blood Cells % 0 %; Platelet Count 378 10^3/cmm (157-399); Red Cell Distribution Width 12.6 % (12.1-15.1); White Blood Count 25.92 10^3/uL (3.29-11.43)
[2024-08-06 05:31] LABS: Anion Gap 18.1 (5-19); Blood Urea Nitrogen 15 mg/dL (8-23); Calcium 8.6 mg/dL (8.5-10.5); Carbon Dioxide 24 mmol/L (22-29); Chloride 95 mmol/L (98-107); Creatinine Clr Calc Pharmacy 95.0375; Glucose 139 mg/dL (65-115); Magnesium 2.1 mg/dL (1.7-2.3); Osmolality Calculated 281 mOsm/kg (285-295); Potassium 3.1 mmol/L (3.5-5.1); Sodium 134 mmol/L (136-145)
[2024-08-06 05:37] LABS: Slide Review Slide Review Perform
[2024-08-06] MEDS: vancomycin 1,750 MG/350 ML PIGGYBACK 175 MG IV ×2 (06:21→20:06)
[2024-08-06] MEDS: piperacillin-tazobactam 3.375 GM in sodium chloride 0.9% (plus) 50 ML IV ×3 (06:21→23:05)
[2024-08-06 06:24] LABS: Glucose Point of Care 151 mg/dL (70-110)
--- NOTE | 2024-08-06 06:40 | PM.PN ---
Subjective Subjective: Patient seen bedside this a.m., denies any acute events overnight. Awaiting MRI right foot. Patient denies any subjective nausea, vomiting, fever, chills, shortness of breath or chest pain. Vitals/I&O/Wt Last Vital Signs Temp 99.4 F 08/06/24 03:46 Pulse 97 08/06/24 03:46 Resp 17 08/06/24 03:46 BP 134/85 08/06/24 03:46 Pulse Ox 92 08/06/24 03:46 O2 Del Method Room Air 08/06/24 03:46 08/05/24 08/05/24 08/06/24 14:59 22:59 06:59 Intake Total 1000 / 1000 750 / 1750 200 / 1950 Balance 1000 / 1000 750 / 1750 200 / 1950 Weight last 48 hrs Weight 197 lb 9.6 oz Weight 196 lb 1 oz Weight 200 lb Physical Exam Narrative: GENERAL: Patient is alert and oriented ?3 and in no acute distress. The following is a focused bilateral lower extremity exam. VASCULAR: Dorsalis pedis palpable bilaterally. Posterior tibial arteries palpable bilaterally. Capillary refill time less than 3 seconds to the distal hallux bilaterally. Calf is supple and nontender proximally and distally. Edema to the right forefoot. Warmth to the right forefoot dorsally. NEUROLOGICAL: Protective sensation intact 0/10 sites, tested with [place] Rafael monofilament to bilateral feet. DERMATOLOGICAL: ebspaces 1 through 4 right foot were clean, dry and intact, no ingrowing nail, no pressure ulcerations or breakdown in skin there was an obvious palpable abscess with fluctuance at the dorsal aspect of the right first metatarsal phalangeal joint with intense surrounding erythema and cellulitis streaking to the anterior aspect of the right ankle, no lymphangitic streaking up the right leg at this time. MUSCULOSKELETAL: Pain to palpation right dorsal forefoot. There is no crepitus with palpation of soft tissue, there is fluctuance palpable at the abscess dorsal aspect of the right forefoot. Const: COMMON NORMALS: no acute distress, patient oriented x3 and alert HENMT: COMMON NORMALS: normocephalic HEAD & SCALP: normocephalic Eye: COMMON NORMALS: Equal, round and reactive pupils present PUPIL: Yes Equal, round and reactive pupils present Lymph: LYMPHATIC: lymphedema Resp: COMMON NORMALS: normal respiratory effort, No retractions and No use of accessory muscles Cardio: COMMON NORMALS: regular rate and Peripheral pulses 2+ throughout RATE: regular rate PERIPHERAL PULSES: Peripheral pulses 2+ throughout Extremity: COMMON NORMALS: no calf tenderness; negative for no pedal edema GENERAL: Yes deformity Neuro: COMMON NORMALS: patient oriented x3 SENSORIUM/ORIENTATION: Yes alert SENSORY EXAM: Yes extremities MONOFILAMENT EXAM PERFORMED: Yes MOTOR EXAM: 5/5 motor strength present throughout Psych: COMMON NORMALS: cooperative Skin: COMMON NORMALS: negative for no wounds WOUNDS: Yes wounds noted NAILS: discolored, dystrophic and yellow and thickened Data 08/06/24 04:45 08/06/24 04:45 Micro: Microbiology 08/05/24 13:48 Blood Culture - Preliminary Blood SPECIMEN COLLECTED 08/05/24 13:51 Blood Culture - Preliminary Blood SPECIMEN COLLECTED A&P Assessment and plan (1) Abscess of right foot: (2) Diabetic peripheral neuropathy associated with type 2 diabetes mellitus: (3) Cellulitis of right foot: Plan 64-year-old uncontrolled diabetic male with abscess and cellulitis right foot. - Performed I&D of abscess right foot bedside in emergency department 08/05/2024, culture of the abscess sent to microbiology, culture pending. - Continuing empiric IV antibiotics and may narrow once cultures yield further information - Awaiting MRI w/wo contrast of the right foot to evaluate the extent of the infection, contrast would be more beneficial to further evaluate the extent of the abscess and rule out acute osteomyelitis. - Anticipating surgical debridement once MRI is completed. - Dressing change Betadine wet-to-dry, no further ascending cellulitis or lymphangitic streaking at the right foot compared to yesterday. - Ordered n.p.o. at midnight with anticipation of surgical debridement tomorrow 08/07/2024 Podiatry will follow Attestations Medical Necessity Statement*: management of complicated infection of right foot with uncontrolled diabetes, possible osteomyelitis, possible early DKA. Coding Level of Care Code Acute Code for [facility] Fwd Diagnoses Abscess of right foot L02.611 Diabetic peripheral neuropathy associated with type 2 diabetes mellitus E11.42 Cellulitis of right foot L03.115
[2024-08-06] MEDS: insulin lispro 100 unit/1 mL SUBCUT ×4 (08:20→21:52)
[2024-08-06] MEDS: insulin glargine 100 units/1 mL 10 UNIT SUBCUT (08:20)
[2024-08-06] MEDS: atenolol 50 mg Tablet 25 MG PO (08:30)
--- NOTE | 2024-08-06 09:30 | MR_ITS ---
WS: [id number] MRI RIGHT FOOT WITH AND WITHOUT CONTRAST. COMPARISON: Radiograph 08/05/2024 Multiplanar, multisequence imaging is performed with and without contrast. MultiHance 19 mL. There is extensive diffuse soft tissue edema throughout the RIGHT foot. There is edema within the mus cles and soft subcutaneous tissue. There are a few small collections which are intermediate in signal with minimal peripheral enhancement between the proximal first and second phalanges. The largest col lection measures 9 x 4 mm. These may be small phlegmonous collections. These are not cystic or fluid- filled but this is the site of the most significant edema. Degenerative changes at the first metatarsophalangeal joint. Joint space is narrowed with small subch ondral cysts. No marrow edema or enhancement is noted within the bones of the foot. There is a defect along the dorsal surface of the proximal phalanx first toe which is probably the site of the surgica l debridement. There is an additional soft tissue defect adjacent to the proximal first metatarsal wh ich may be an additional site of debridement. MR/MR foot RT wo/w con [id number] IMPRESSION: 1. Diffuse cellulitis throughout the foot. The most significant area of enhanc ement and edema is centered around the first metatarsophalangeal joint and firs t toe. 2. There are a few small intermediate signal collections between the first and second proximal phalanges. These are most consistent with phlegmonous collecti ons. The largest measures 9 x 4 mm. These are not fluid-filled at this time and only mild peripheral enhancement.
[2024-08-06] MEDS: morphine 4 mg/mL SDV 1 mL 2 MG IVP (09:45)
[2024-08-06] MEDS: gadobenate dimeglumine 20 mL vial 19 ML IV (10:28)
[2024-08-06 10:57] LABS: Glucose Point of Care 249 mg/dL (70-110)
[2024-08-06] MEDS: sodium chloride 0.9% 1,000 ML 75 ML IV (12:22)
--- NOTE | 2024-08-06 14:59 | PM.PN ---
Subjective Subjective: He denies any additional new symptoms. He has been having pain, requiring pain medication, IV morphine. No issues during MRI. Vitals/I&O/Wt Last Vital Signs Temp 97.8 F 08/06/24 12:20 Pulse 93 08/06/24 12:20 Resp 16 08/06/24 12:20 BP 130/80 08/06/24 12:20 Pulse Ox 94 08/06/24 12:20 O2 Del Method Room Air 08/06/24 12:20 08/05/24 08/06/24 08/06/24 22:59 06:59 14:59 Intake Total 750 / 1750 200 / 1950 1720 / 1720 Balance 750 / 1750 200 / 1950 1720 / 1720 Weight last 48 hrs Weight 89.63 kg Weight 88.932 kg Weight 90.718 kg Physical Exam Const: COMMON NORMALS: patient oriented x3 and alert GENERAL APPEARANCE: cooperative ORIENTATION/CONSCIOUSNESS: Yes awake HENMT: COMMON NORMALS: oropharynx normal Neck/C-Spine: COMMON NORMALS: no JVD Resp: COMMON NORMALS: normal respiratory effort and clear to auscultation bilaterally AUSCULTATION: clear to auscultation bilaterally Cardio: COMMON NORMALS: no JVD, regular rhythm, S1 normal heart sound present, S2 normal heart sound present and No murmurs present (Cardio) RHYTHM: regular rhythm HEART SOUNDS: S1 normal heart sound present and S2 normal heart sound present GI: COMMON NORMALS: Normal to inspection, nondistended, normoactive bowel sounds present, Soft to palpation and non-tender PALPATION: Yes Soft to palpation Extremity: COMMON NORMALS: no joint enlargement and no pedal edema Neuro: COMMON NORMALS: patient oriented x3 and moves all extremities SENSORIUM/ORIENTATION: Yes alert Skin: COMMON NORMALS: no rashes or lesions noted NARRATIVE SKIN EXAM: Erythema severe swelling of distal two thirds of the right foot, worse swelling around the right big toe. New opening on the dorsal surface of the right big toe with purulent drainage. GENERAL SKIN EXAM: no rashes or lesions noted Data 08/06/24 04:45 08/06/24 04:45 Micro: Microbiology 08/05/24 13:48 Blood Culture - Preliminary Blood NEGATIVE TO DATE 08/05/24 13:51 Blood Culture - Preliminary Blood NEGATIVE TO DATE A&P Assessment and plan (1) Abscess of right foot: Severe purulent diabetic foot infection distal right foot, great toe. No issues during MRI today. Reviewed results, noted diffuse cellulitis, with no significant area of enhancement and edema centered around the left metatarsophalangeal joint over the first toe. Few small collections possibly phlegmonous between first and second proximal phalanges. Reviewed vitals, CBC, chemistry, reviewed blood culture, wound culture. So far pending. Reviewed podiatry note. Persistent/worsening leukocytosis today. Slight improvement in tachycardia. Afebrile. Continue IV antibiotic coverage, Zosyn, Comycin, follow-up cultures. Monitor for risk of kidney injury with antibiotic combination. Repeat chemistry, blood counts. Discussed with nursing, protective services case worker. May require prolonged IV antibiotics. Has been requiring premedication be on Tylenol, IV morphine. Add hydrocodone for moderate pain. (2) Cellulitis of right foot: Purulent cellulitis as above. With uncontrolled diabetes. MRSA coverage provided. (3) Diabetic peripheral neuropathy associated with type 2 diabetes mellitus: Reviewed glucose, with improvement, reviewed VBG, without acidosis, reviewed anion gap, bicarb. No evidence of DKA. Anion gap with improvement, bicarb is normal. Continues on Lantus. Monitor blood glucose. Consistent carb diet. Reviewed A1c, noted 12.8. Discussed with him we will need insulin after discharge. Discussed with protective services case worker. Patient Uncontrolled diabetes, controlled only with diet, previously on insulin, but has not been able to continue due to financial difficulties. A1c requested. Blood glucose over 400s. Beta hydroxybutyrate requested. Mild hyponatremia, hypokalemia 2.8. Sinus tachycardia. Will obtain VBG. Possible early DKA. Anion gap noted elevated. Bicarb not significantly decreased to 23. Start insulin sliding scale. Will start Lantus 10 units. Reduce IV fluid. Reassess chemistry. Blood glucose. Monitor for risk of hypoglycemia. (4) Hypertension: Reviewed blood pressure, with improvement. Continue carvedilol. Received a dose of amlodipine, with sinus tachycardia. Will start additional dose of atenolol 25 mg. Monitor blood pressures. Cardiac diet. (5) Encounter for screening involving social determinants of health (SDoH): Discussed with protective services case worker. Application underway for Medicaid. Does not have health insurance, discontinued insulin as he could not afford it. Has been trying to control his diabetes with diet alone. Significantly elevated blood glucose. Requesting case management consultation. He states has not been able to qualify for Medicare yet. He is not sure about Medicaid. Plan Hyperkalemia: Mild hyperkalemia, changed diet low potassium. Reassess chemistry. Attestations Medical Necessity Statement*: Continue admission for assessment management of severe diabetic foot infection, with uncontrolled diabetes. Diagnoses Abscess of right foot L02.611 Cellulitis of right foot L03.115 Diabetic peripheral neuropathy associated with type 2 diabetes mellitus E11.42 Hypertension I10 Encounter for screening involving social determinants of health (SDoH) Z13.9
[2024-08-06] MEDS: HYDROcodone-acetaminophen 5-325 mg Tablet 1 TAB PO ×2 (15:14→20:08)
[2024-08-06 16:41] LABS: Glucose Point of Care 227 mg/dL (70-110)
[2024-08-06] MEDS: enoxaparin 40 mg/0.4 mL Syringe SUBCUT (17:32)
[2024-08-06 21:47] LABS: Glucose Point of Care 237 mg/dL (70-110)
[2024-08-07] VITALS (15 sets, daily range): BP systolic 90–183; BP diastolic 57–118; PULSE 82–113; RESP 14–22; TEMP 36.1–37.1; O2SAT 90–99
[2024-08-07] MEDS: hyDRALAzine 20 mg/mL INJ 1 mL 5 MG IVP ×3 (00:39→13:06)
[2024-08-07] MEDS: ondansetron 2 mg/ML SDV 2 mL 4 MG IVP (03:47)
[2024-08-07] MEDS: piperacillin-tazobactam 3.375 GM in sodium chloride 0.9% (plus) 50 ML IV ×2 (06:08→22:52)
[2024-08-07] MEDS: vancomycin 1,750 MG/350 ML PIGGYBACK 175 MG IV (06:08)
[2024-08-07 06:40] LABS: Basophils # 0.1 10^3/uL (0.0-0.1); Basophils % 0.4 %; Eosinophils % 0.1 %; Hematocrit 36.7 % (37-53); Lymphocytes # 2.9 10^3/uL (0.8-4.8); Lymphocytes % 13.4 %; Mean Corpuscular Hemoglobin 29.3 pg (27-33); Mean Corpuscular Volume 88.9 fl (82-101); Monocytes # 1.4 10^3/uL (0.2-0.9); Monocytes % 6.7 %; Neutrophils # 16.61 10^3/uL (1.8-7.7); Neutrophils % 77.8 %; Nucleated Red Blood Cells % 0 %; Platelet Count 448 10^3/cmm (157-399); Red Blood Count 4.13 10^6/uL (3.85-5.65); White Blood Count 21.34 10^3/uL (3.29-11.43)
[2024-08-07 06:46] LABS: Glucose Point of Care 194 mg/dL (70-110)
[2024-08-07 07:15] LABS: Anion Gap 19.7 (5-19); Blood Urea Nitrogen 25 mg/dL (8-23); Calcium 8.8 mg/dL (8.5-10.5); Carbon Dioxide 18 mmol/L (22-29); Chloride 94 mmol/L (98-107); Creatinine Clr Calc Pharmacy 87.2501; Glomerular Filtration Rate 75.2 mL/min (90-130); Glucose 195 mg/dL (65-115); Osmolality Calculated 278 mOsm/kg (285-295); Sodium 129 mmol/L (136-145)
[2024-08-07 07:34] LABS: Potassium 2.7 mmol/L (3.5-5.1); Vancomycin Trough 29.2 ug/mL (10-15)
[2024-08-07] MEDS: insulin lispro 100 unit/1 mL SUBCUT ×3 (08:43→21:11)
[2024-08-07] MEDS: atenolol 50 mg Tablet 25 MG PO (08:43)
[2024-08-07 09:32] LABS: Magnesium 1.9 mg/dL (1.7-2.3)
[2024-08-07 10:41] LABS: Glucose Point of Care 167 mg/dL (70-110)
[2024-08-07] MEDS: HYDROcodone-acetaminophen 5-325 mg Tablet 1 TAB PO ×3 (11:04→21:09)
[2024-08-07] MEDS: potassium chloride ER 20 mEq Tablet 40 MEQ PO (11:04)
--- NOTE | 2024-08-07 13:30 | ANES.PREANE2 ---
Pre-Anesthetic Assessment Height/Weight: Height 1.8 m Weight 93.695 kg Temp Pulse Resp BP Pulse Ox O2 Del Method 98.5 F 105 H 17 163/101 90 Room Air 08/07/24 12:49 08/07/24 12:49 08/07/24 12:49 08/07/24 12:49 08/07/24 12:49 08/07/24 12:49 Preop Diagnosis: Abscess Right Foot Operation Date: 08/07/24 14:10 Proposed Procedures p Incision And Debridement right foot(Right) - Ladarius Alicea DPM Familial anesthetic complications: none Last intake: 1200 sips with medication. 08/06/24 1800 dinner Social No alcohol and No tobacco Exam alert, oriented x 3, clear to auscultation bilaterally and regular rate & rhythm Airway Submandibular: within normal limits Cervical ROM: within normal limits Mallampati: Class II Dentition: chipped (bilateral front teeth chipped in multiple placed very poor dentition.) Pulmonary Sleep Apnea (non-compliant CPAP doesnt work for me ) CV/HEM Coronary Artery Disease (Right carotid blockage discovered 8 years prior per patient.), Hypertension (147/98 unmedicated ) and None reported Patient has socioeconomic challenges to healthcare resources currently is non-compliant with medications due to resources. None reported Hepatic None reported GI Gastroesophageal Reflux Disease Metabolic Diabetes Mellitus Musc/skel Weakness (cane use prn) Neuropsych None reported Anesthetic Plan ASA status: 3 Anesthesia: MAC Other Pertinent Information K+ 2.7 rechecking level at this time. Medications/Allergies Home Medications Medication Instructions Recorded Confirmed Last Taken Type aspirin 81 mg chewable tablet 81 mg PO DAILY 07/19/20 08/05/24 05/30/21 History colchicine 0.6 mg tablet 1.2 mg (2 x 0.6 mg) PO BID #10 tabs 07/29/24 08/05/24 Unknown Rx acetaminophen 325 mg tablet 325 mg PO QID PRN Pain 08/05/24 08/05/24 Unknown History (Tylenol) naproxen sodium 220 mg tablet 220 mg PO BID PRN Pain 08/05/24 08/05/24 Unknown History (Aleve) Allergies Allergy/AdvReac Type Severity Reaction Status Date / Time No Known Allergies Allergy Verified 07/29/24 05:22 Current Medications Generic Name Dose Route Start Last Admin Trade Name Freq PRN Reason Stop Dose Admin Hydrocodone Bitart/Acetaminophen 1 tab 08/06/24 14:58 08/07/24 11:04 Hydrocodone-Acetaminophen 5-325 Mg Tablet PO 1 tab Q4H PRN Administration MODERATE PAIN Atenolol 25 mg 08/05/24 19:05 08/07/24 08:43 Atenolol 50 Mg Tablet PO 25 mg DAILY [facility]AD Administration Enoxaparin Sodium 40 mg 08/05/24 18:00 08/06/24 17:32 Enoxaparin 40 Mg/0.4 Ml Syringe SUBCUT 40 mg Q24H [facility]AD Administration Hydralazine HCl 5 mg 08/06/24 23:55 08/07/24 13:06 Hydralazine 20 Mg/Ml Inj 1 Ml IVP 5 mg Q4H PRN Administration bp>180/100 Piperacillin Sod/Tazobactam 50 mls @ 12.5 mls/hr 08/05/24 15:00 08/07/24 13:19 Sod 3.375 gm/ Sodium Chloride IV Infused Q8H [facility] Infusion Protocol Sodium Chloride 1,000 mls @ 30 mls/hr 08/05/24 19:45 08/07/24 01:19 Sodium Chloride 0.9% IV 75 mls/hr .Q24H [facility] Infusion Insulin Glargine 10 unit 08/05/24 19:10 08/07/24 08:47 Insulin Glargine 100 Units/1 Ml SUBCUT Not Given DAILY [facility] Insulin Human Lispro 0 unit 08/05/24 18:00 08/07/24 12:19 Insulin Lispro 100 Unit/1 Ml SUBCUT Not Given WM&BEDTIME [facility] Protocol Morphine Sulfate 2 mg 08/05/24 17:34 08/06/24 09:45 Morphine 4 Mg/Ml Sdv 1 Ml IVP 2 mg Q4H PRN Administration SEVERE PAIN Ondansetron HCl 4 mg 08/05/24 17:34 08/07/24 03:47 Ondansetron 2 Mg/Ml Sdv 2 Ml IVP 4 mg Q8H PRN Administration vomiting, or N/V if npo PFSH Anesthesia Medical History Hypertension Diabetes Social History Smoking and tobacco/nicotine status: never used tobacco/nicotine Data Anesthesia 08/07/24 06:29 08/07/24 06:29 Short CBC 08/06/24 08/07/24 Range/Units 04:45 06:29 WBC 25.92 H 21.34 H (3.29-11.43) 10^3/uL Hgb 11.00 L 12.10 (11.27-16.99) g/dL Hct 32.1 L 36.7 L (37-53) % MCV 86.8 88.9 (82-101) fl Plt Count 378 448 H (157-399) 10^3/cmm Neut % (Auto) 79.3 77.8 % Neut # (Auto) 20.55 H 16.61 H (1.8-7.7) 10^3/uL BMP 08/05/24 08/06/24 08/07/24 12:57 04:45 06:29 Sodium 128 L 134 L 129 L Potassium 2.8 L* 3.1 L 2.7 L* Chloride 86 L 95 L 94 L Carbon Dioxide 23 24 18 L BUN 10 15 25 H Creatinine 0.9 0.9 1.0 Glucose 479 H 139 H 195 H Calcium 8.7 8.6 8.8 Cardiac Enzymes 08/05/24 Range/Units 12:57 NT-Pro-B Natriuret Pep 1749 H (0-125) pg/mL Coags 08/05/24 12:57 C-Reactive Protein 455.6 H ABG 08/05/24 20:06 Specimen Type Venous Sample Site Not specified O2 Delivery Device None Microbiology 08/05/24 14:36 Wound Culture - Preliminary Foot Right Strep agalactiae - (group b) 08/05/24 13:48 Blood Culture - Preliminary Blood NEGATIVE TO DATE 08/05/24 13:51 Blood Culture - Preliminary Blood NEGATIVE TO DATE Cardiac Studies: No Data to Display
--- NOTE | 2024-08-07 13:32 | PC.NURSE ---
pt to or at approx. 1315
[2024-08-07] MEDS: sodium chloride 0.9% 1,000 ML 30 ML IV (13:38)
--- NOTE | 2024-08-07 13:43 | W.PM.OPSUD ---
Surgery/Procedure H&P Update DATE OF PROCEDURE: August 07, 2024 DATE H&P PERFORMED: 08/05/24 H&P UPDATE INFORMATION: I have reviewed H&P completed within last 30 days, I have examined patient prior to procedure and H&P is in [facility] EMR on date indicated PREOP DIAGNOSIS: Abscess Right Foot PLANNED PROCEDURE: Operation Date: 08/07/24 14:10 Proposed Procedures p Incision And Debridement right foot(Right) - Ladarius Alicea DPM
[2024-08-07 14:15] LABS: Potassium 3.2 mmol/L (3.5-5.1)
--- NOTE | 2024-08-07 14:20 | P.PN_ITS ---
Subjective 2 Subjective: He is having nausea this morning, emesis with small amount of gastric secretions. Vitals/I&O/Wt Last Vital Signs Temp 97.7 F 08/07/24 13:30 Pulse 91 08/07/24 13:30 Resp 18 08/07/24 13:30 BP 147/98 08/07/24 13:30 Pulse Ox 99 08/07/24 13:30 O2 Del Method Room Air 08/07/24 13:30 08/06/24 08/07/24 08/07/24 22:59 06:59 14:59 Intake Total 750 / 2520 592 / 3112 400 / 400 Output Total 500 / 500 Balance 750 / 2520 592 / 3112 -100 / -100 Weight last 48 hrs Weight 93.695 kg Weight 89.63 kg Weight 88.932 kg Physical Exam 2 Const: COMMON NORMALS: patient oriented x3 and alert GENERAL APPEARANCE: c ooperative ORIENTATION/CONSCIOUSNESS: Yes awake HENMT: COMMON NORMALS: oropharynx normal Neck/C-Spine: COMMON NORMALS: no JVD Resp: COMMON NORMALS: normal respiratory effort and clear to auscultation bilaterally AUSCULTATION: clear to auscultation bilaterally Cardio: COMMON NORMALS: no JVD, regular rhythm, S1 normal heart sound present, S2 normal heart sound present and No murmurs present (Cardio) RHYTHM: regular rhythm HEART SOUNDS: S1 normal heart sound present and S2 normal heart sound present GI: COMMON NORMALS: Normal to inspection, nondistended, normoactive bowel sounds present, Soft to palpation and non-tender PALPATION: Yes Soft to palpation Extremity: COMMON NORMALS: no joint enlargement and no pedal edema Neuro: COMMON NORMALS: patient oriented x3 and moves all extremities S ENSORIUM/ORIENTATION: Yes alert Skin: COMMON NORMALS: no rashes or lesions noted NARRATIVE SKIN EXAM: Right foot with dressing in place with strikethrough over the hallux. GENERAL SKIN EXAM: no rashes or lesions noted Data 08/07/24 06:29 08/07/24 13:50 Micro: Microbiology 08/05/24 14:36 Wound Culture - Preliminary Foot Right Strep agalactiae - (group b) 08/05/24 13:48 Blood Culture - Preliminary Blood NEGATIVE TO DATE 08/05/24 13:51 Blood Culture - Preliminary Blood NEGATIVE TO DATE A&P Assessment and plan (1) Abscess of right foot: Reviewed vitals, CBC, BMP, blood culture, wound culture, reviewed podiatry note. Discussed with nursing, telephonic case manager. Going for debridement today. Continue IV antibiotic coverage. Follow-up healing. Continue to optimize blood glucose control. Wound culture so far growing strep agalactiae resistant to tetracycline, clindamycin and erythromycin. Continue Zosyn, vancomycin, monitor for risk of kidney injury, C. difficile. Reassess chemistry. May need continued IV antibiotics after discharge. Persistent leukocytosis today. Slight improvement in tachycardia. Afebrile. Has been requiring premedication be on Tylenol, IV morphine. hydrocodone for moderate pain. (2) Cellulitis of right foot: So far strep growing from wound culture. Follow-up. Purulent cellulitis as above. With uncontrolled diabetes. MRSA coverage provided. (3) Diabetic peripheral neuropathy associated with type 2 diabetes mellitus: Reviewed blood glucose, with some improvement down to as low as 139 this morning 195. Increase Lantus dose to 12 units. Continue sliding scale insulin. Monitor POC glucose. Monitor for risk of hypoglycemia with insulin uptitration. With intermittent nausea/vomiting, with suspected gastroparesis. May benefit from follow-up for gastric emptying study. Will add Reglan as needed. Monitor for risk of extrapyramidal symptoms. Uncontrolled diabetes, controlled only with diet, previously on insulin, but has not been able to continue due to financial difficulties. A1c reviewed, discussed with him, 12.8. Blood glucose over 400s on presentation. Will need insulin after discharge. Monitor for risk of fluid overload with IV fluid. Reassess chemistry. Blood glucose. Monitor for risk of hypoglycemia. (4) Hypertension: Blood pressure again elevated today. Continue carvedilol. Added amlodipine. (5) Encounter for screening involving social determinants of health (SDoH): Discussed with telephonic case manager. Application underway for Medicaid. Does not have health insurance, discontinued insulin as he could not afford it. Has been trying to control his diabetes with diet alone. Significantly elevated blood glucose. Requesting case management consultation. He states has not been able to qualify for Medicare yet. He is not sure about Medicaid. Plan Hypokalemia: Replace potassium. Recheck level. Reviewed magnesium: 1.9. Attestations 2 Medical Necessity Statement*: Continue admission for assessment management of severe diabetic foot infection, with uncontrolled diabetes. and High MDM includes amount and/or complexity of data reviewed/ordered [ previous or external records, resulted lab(s)/test(s), ordered lab(s)/test(s) and other healthcare professional discussion] and described risk of complication, morbidity or mortality of management as documented Diagnoses Abscess of right foot L02.611 Cellulitis of right foot L03.115 Diabetic peripheral neuropathy associated with type 2 diabetes mellitus E11.42 Hypertension I10 Encounter for screening involving social determinants of health (SDoH) Z13.9
[2024-08-07] MEDS: lidocaine 1% 10 ML INJ 20 ML XX (14:40)
--- NOTE | 2024-08-07 14:42 | PC.NURSE ---
etta drain used for drain
--- NOTE | 2024-08-07 14:47 | PM.OP ---
Operative Report Date of procedure: August 07, 2024 Pre-op diagnosis: Uncontrolled diabetes mellitus type 2 with peripheral polyneuropathy Cellulitis right lower extremity Abscess right foot Post-op diagnosis: Same Post-op findings: White heavy purulence at extensor tendons right dorsal forefoot Procedure done: Incision and drainage below fascia multiple areas right foot. CPT code 19449 Implants: Quarter-inch [place] drain Surgeon: Ladarius Alicea DPM [employer] Operator: Debbie Estimated blood loss: 25 No tourniquet utilized IV fluids: See intraoperative documentation Urine output: None Complications: None Brief History: 64-year-old uncontrolled diabetes mellitus type II male with peripheral neuropathy, presenting with an abscess and cellulitis of the right foot. The condition is complicated by significantly elevated glucose and A1c levels, indicating poor glycemic control. The abscess is palpable with surrounding cellulitis, and the laboratory findings reveal marked leukocytosis and inflammatory markers. The immediate concern is the right foot infection which requires surgical debridement. Procedure: Under mild sedation the patient was brought to the operating room and remained on the gurney in supine position. A timeout was performed. Anesthesia was administered by the anesthesia service. Local anesthesia injected by myself consisting of one-to-one mixture 1% lidocaine and 0.5% Marcaine plain total of 30 cc in a right ankle 5 point nerve block. Well-padded pneumatic tourniquet applied to the right high calf. Right lower extremity is scrubbed, prepped and draped utilizing normal aseptic technique. Tourniquet was never utilized during the procedure. Attention was directed to the dorsum of the right forefoot where cellulitis and palpable abscess was appreciated. Directly over the most fluctuant portion of the abscess which was to the dorsal aspect of the right first metatarsal phalangeal joint just lateral to the extensor hallucis longus tendon a 2 cm linear longitudinal incision was made down to fascia with white purulent drainage immediately encountered this was expressed and irrigated and devitalized tendon sheath subcutaneous tissue and fascia was sharply debrided. The initial incision demonstrated extensive tracking both to the medial foot along the medial aspect the first metatarsal to the level of the cuneiforms it also tracked laterally to the region of the fourth metatarsal head. For this reason additional incision was made for further debridement of the right lateral forefoot a 1.5 cm incision was made coursing from the fourth intermetatarsal space to the third intermetatarsal space dorsally through skin with a 15 blade with further heavy white purulence encountered and expressed, extensor tendon sheath of extensor digitorum longus to the toes 2, 3 and 4 were debrided of devitalized tissue along with muscle and fascia. Additional incision was then performed medial to the base of the first metatarsal due to additional tracking in this region with further debridement and purulence pockets found. These were expressed and debrided down to myofascial layer sharply with 15 blade and pickups. The incisions were irrigated with copious amounts of sterile saline solution, cordage Bergen drains were placed x 2. Saline wet-to-dry dressing applied consisting of gauze, Kerlix, ABD pads and Jose A wrap. Patient tolerated the procedure and anesthesia well and was transferred to the PACU with vital signs stable and vascular status intact. Following a period of postoperative monitoring he will return to the floor to continue empiric IV antibiotics. Patient may require additional surgical debridements.
[2024-08-07] MEDS: amlodipine 5 mg Tablet PO (17:04)
[2024-08-07 17:32] LABS: Glucose Point of Care 235 mg/dL (70-110)
[2024-08-07 18:18] LABS: Vancomycin Trough 16.5 ug/mL (10-15)
[2024-08-07] MEDS: enoxaparin 40 mg/0.4 mL Syringe SUBCUT (18:40)
--- NOTE | 2024-08-07 19:28 | PC.NURSE ---
pt refused to use urinal, up to bathroom with walker
[2024-08-07 20:46] LABS: Glucose Point of Care 284 mg/dL (70-110)
[2024-08-08] VITALS: BP 156/95; PULSE 119; RESP 19; TEMP 37.1; O2SAT 93
[2024-08-08 04:00] VITALS: BP 172/94; PULSE 109; RESP 21; TEMP 36.8; O2SAT 93
[2024-08-08] MEDS: hyDRALAzine 20 mg/mL INJ 1 mL 5 MG IVP (04:10)
[2024-08-08] MEDS: HYDROcodone-acetaminophen 5-325 mg Tablet 1 TAB PO ×3 (04:11→15:18)
[2024-08-08 05:03] LABS: Basophils # 0.1 10^3/uL (0.0-0.1); Basophils % 0.4 %; Eosinophils % 0.2 %; Hematocrit 35.3 % (37-53); Lymphocytes # 2.8 10^3/uL (0.8-4.8); Lymphocytes % 19.3 %; Mean Corpuscular HGB Conc 33.1 g/dL (30-55); Mean Corpuscular Hemoglobin 28.4 pg (27-33); Mean Corpuscular Volume 85.7 fl (82-101); Mean Platelet Volume 8.7 fL (7.4-10.4); Monocytes # 1.5 10^3/uL (0.2-0.9); Monocytes % 9.9 %; Neutrophils # 9.71 10^3/uL (1.8-7.7); Neutrophils % 66.6 %; Nucleated Red Blood Cells % 0 %; Platelet Count 528 10^3/cmm (157-399); Red Blood Count 4.12 10^6/uL (3.85-5.65); Red Cell Distribution Width 12.9 % (12.1-15.1); White Blood Count 14.58 10^3/uL (3.29-11.43)
[2024-08-08 05:25] LABS: Anion Gap 16.3 (5-19); Blood Urea Nitrogen 21 mg/dL (8-23); Calcium 8.8 mg/dL (8.5-10.5); Carbon Dioxide 22 mmol/L (22-29); Chloride 97 mmol/L (98-107); Creatinine Clr Calc Pharmacy 79.4469; Glomerular Filtration Rate 67.4 mL/min (90-130); Glucose 270 mg/dL (65-115); Osmolality Calculated 287 mOsm/kg (285-295); Potassium 3.3 mmol/L (3.5-5.1); Sodium 132 mmol/L (136-145)
[2024-08-08 06:35] LABS: Glucose Point of Care 259 mg/dL (70-110)
[2024-08-08] MEDS: piperacillin-tazobactam 3.375 GM in sodium chloride 0.9% (plus) 50 ML IV ×3 (06:48→22:59)
--- NOTE | 2024-08-08 07:52 | P.PN_ITS ---
Subjective 2 Subjective: Patient seen bedside this morning he is status post incision and debridement multiple areas right foot date of operation 08/07/2024. Patient denies any subjective nausea, vomiting, fever, chills, shortness of breath or chest pain. Vitals/I&O/Wt Last Vital Signs Temp 98.3 F 08/08/24 04:00 Pulse 109 H 08/08/24 04:00 Resp 21 H 08/08/24 04:00 BP 172/94 08/08/24 04:00 Pulse Ox 93 08/08/24 04:00 O2 Del Method Room Air 08/08/24 04:00 O2 Flow Rate 6 08/07/24 15:01 08/07/24 08/08/24 08/08/24 22:59 06:59 14:59 Intake Total 627.5 / 1027.5 150 / 1177.5 Output Total 25 / 525 Balance 602.5 / 502.5 150 / 652.5 Weight last 48 hrs Weight 207 lb 4.8 oz Weight 206 lb 9 oz Physical Exam 2 Narrative: GENERAL: Patient is alert and oriented ?3 and in no acute distress. The following is a focused bilateral lower extremity exam. VASCULAR: Dorsalis pedis palpable bilaterally. Posterior tibial arteries palpable bilaterally. Capillary refill time less than 3 seconds to the distal hallux bilaterally. Calf is supple and nontender proximally and distally. Edema to the right forefoot. Warmth to the right forefoot dorsally. NEUROLOGICAL: Protective sensation intact 0/10 sites, tested with [place] monofilament to bilateral feet. DERMATOLOGICAL: [place] drain x [address] with serosanguineous drainage, erythema at the right forefoot, no cellulitis or lymphangitic streaking at the level of the right ankle. MUSCULOSKELETAL: Pain to palpation right dorsal forefoot. There is no crepitus with palpation of soft tissue, there is fluctuance palpable at the abscess dorsal aspect of the right forefoot. Data 08/08/24 04:44 08/08/24 04:44 Micro: Microbiology 08/05/24 14:36 Wound Culture - Final Foot Right Strep agalactiae - (group b) A&P Assessment and plan (1) Abscess of right foot: (2) Diabetic peripheral neuropathy associated with type 2 diabetes mellitus: (3) Cellulitis of right foot: Plan 64-year-old uncontrolled diabetic male with abscess and cellulitis right foot. - Performed I&D of abscess right foot bedside in emergency department 08/05/2024, culture of the abscess sent to microbiology. - Wound culture grew strep B - Recommend continuing empiric IV antibiotics at this time given his right foot clinical picture. - MRI of the right foot with and without contrast 08/06/2024 demonstrated cellulitis with phlegmon collection on, no bony involvement, no osteomyelitis. - Surgical debridement with Deepika drain placement performed 08/07/2024 multiple areas of the right forefoot - Dressing change Betadine wet-to-dry, no further ascending cellulitis or lymphangitic streaking at the right foot compared to yesterday. I am guarded as viability of the patient's right foot, leukocytosis is trending down today, limb salvage efforts will require continued IV antibiotics at this time and potentially additional surgical debridement, will monitor daily. Attestations 2 Medical Necessity Statement*: Requires continued empiric IV antibiotics at this time potential additional surgical debridement Coding Level of Care Code Acute Code for [facility] Diagnoses Abscess of right foot L02.611 Diabetic peripheral neuropathy associated with type 2 diabetes mellitus E11.42 Cellulitis of right foot L03.115
[2024-08-08 08:00] VITALS: BP 171/105; PULSE 109; RESP 18; TEMP 36.7; O2SAT 94
[2024-08-08] MEDS: insulin lispro 100 unit/1 mL SUBCUT ×4 (09:06→21:35)
[2024-08-08] MEDS: amlodipine 5 mg Tablet PO (09:06)
[2024-08-08] MEDS: atenolol 50 mg Tablet 25 MG PO (09:06)
[2024-08-08] MEDS: vancomycin 1,750 MG/350 ML PIGGYBACK 175 MG IV ×2 (10:45→19:21)
[2024-08-08] MEDS: insulin glargine 100 units/1 mL 12 UNIT SUBCUT (10:45)
[2024-08-08 10:49] LABS: Glucose Point of Care 369 mg/dL (70-110)
[2024-08-08 11:17] VITALS: BP 145/93; PULSE 102; RESP 18; O2SAT 96
[2024-08-08 13:21] LABS: Glucose Point of Care 349 mg/dL (70-110)
[2024-08-08] MEDS: sodium chloride 0.9% 1,000 ML 30 ML IV (13:54)
--- NOTE | 2024-08-08 15:08 | ANE.PACU2 ---
Inpatient post-anesthesia follow up: Airway intact: Yes Vital signs: Temperature 98 F Pulse Rate 104 Respiratory Rate 20 Blood Pressure 181/117 Pulse Oximetry 94 Oxygen Delivery Me thod Room Air Oxygen Flow Rate 6 Fraction of Inspir ed Oxygen Hydration adequate: Yes Nausea and vomiting: No Pain level: 2 Mental status: Baseline
[2024-08-08 15:37] VITALS: BP 143/94; PULSE 105; RESP 18; TEMP 36.5; O2SAT 94
[2024-08-08 16:22] LABS: Glucose Point of Care 283 mg/dL (70-110)
--- NOTE | 2024-08-08 17:53 | PC.NURSE ---
pt given 10units of humalog during [facility]icia med pass, pt was aaox4. he refused his lovenox inj, educ on risks and benefits. pts call light on, foundation drill operator helper responded and pt asked for the drug lady . this nurse returned to pts room, pt was making strange comments abt the humalog inj and asking if it could be checked out. this nurse educ pt meds are checked by pharmacy. he stated that, he wanted a shot . he then stated, i feel high. this nurse asked pt if he had taken anything that she had not given him and he stated no! this nurse then asked all orientation questions, to which pt responded correctly and quickly. this nurse checked iron miner blasting, they we equal. pt has facial symmetry. dr. dos santos notified.
[2024-08-08 20:00] VITALS: BP 141/82; PULSE 108; RESP 18; TEMP 36.7; O2SAT 95
--- NOTE | 2024-08-08 20:05 | P.PN_ITS ---
Subjective 2 Subjective: States overall doing okay, states bored . Spoke with podiatry, wanting to try to salvage his foot, continue current therapy with IV antibiotics, reassessment for need for any additional debridement/drainage. Feeling little bit of pressure around the cheeks. Additionally some sort of fingerlike sensation on the bottom sides of his abdomen. No erythema, swelling, rashes. Nausea today doing better. Later in the day with report of some bizarre ideation, patient reporting he is feeling somewhat high , asking if his insulin could be laced with something. Vitals/I&O/Wt Last Vital Signs Temp 97.7 F 08/08/24 15:37 Pulse 105 H 08/08/24 15:37 Resp 18 08/08/24 15:37 BP 143/94 08/08/24 15:37 Pulse Ox 94 08/08/24 15:37 O2 Del Method Room Air 08/08/24 15:37 O2 Flow Rate 6 08/07/24 15:01 08/08/24 08/08/24 08/08/24 06:59 14:59 22:59 Intake Total 150 / 1177.5 1000 / 1000 50 / 1050 Balance 150 / 652.5 1000 / 1000 50 / 1050 Weight last 48 hrs Weight 94.03 kg Weight 93.695 kg Physical Exam 2 Const: COMMON NORMALS: patient oriented x3 and alert GENERAL APPEARANCE: c ooperative ORIENTATION/CONSCIOUSNESS: Yes awake HENMT: COMMON NORMALS: oropharynx normal Neck/C-Spine: COMMON NORMALS: no JVD Resp: COMMON NORMALS: normal respiratory effort and clear to auscultation bilaterally AUSCULTATION: clear to auscultation bilaterally Cardio: COMMON NORMALS: no JVD, regular rhythm, S1 normal heart sound present, S2 normal heart sound present and No murmurs present (Cardio) RHYTHM: regular rhythm HEART SOUNDS: S1 normal heart sound present and S2 normal heart sound present GI: COMMON NORMALS: Normal to inspection, nondistended, normoactive bowel sounds present, Soft to palpation and non-tender PALPATION: Yes Soft to palpation Extremity: COMMON NORMALS: no joint enlargement and no pedal edema Neuro: COMMON NORMALS: patient oriented x3 and moves all extremities S ENSORIUM/ORIENTATION: Yes alert Skin: COMMON NORMALS: no rashes or lesions noted NARRATIVE SKIN EXAM: Right foot with dressing in place with mild proximal edema. GENERAL SKIN EXAM: no rashes or lesions noted Data 08/08/24 04:44 08/08/24 04:44 Micro: Microbiology 08/05/24 14:36 Wound Culture - Final Foot Right Strep agalactiae - (group b) A&P Assessment and plan (1) Abscess of right foot: Reviewed vitals, CBC, BMP, blood culture, wound culture, podiatry note. Continue IV antibiotics. Pending further reassessment for need for any additional debridement and/or drainage. Continue broad-spectrum antibiotics for now with Zosyn, vancomycin, follow-up culture for any additional growth. Monitor for risk of kidney injury with antibiotic combination. Continue to optimize blood glucose control. May need continued IV antibiotics after discharge. Has been requiring premedication be on Tylenol, IV morphine. hydrocodone for moderate pain. (2) Cellulitis of right foot: As above. (3) Diabetic peripheral neuropathy associated with type 2 diabetes mellitus: Reviewed POC glucose, further increase Lantus dose to 14 units. Continue sliding scale insulin. Monitor for risk of hypoglycemia. Reviewed blood glucose, with some improvement down to as low as 139 this morning 195. Increase Lantus dose to 12 units. Continue sliding scale insulin. Monitor POC glucose. Monitor for risk of hypoglycemia with insulin uptitration. With intermittent nausea/vomiting, with suspected gastroparesis. May benefit from follow-up for gastric emptying study. Will add Reglan as needed. Monitor for risk of extrapyramidal symptoms. Uncontrolled diabetes, controlled only with diet, previously on insulin, but has not been able to continue due to financial difficulties. A1c reviewed, discussed with him, 12.8. Blood glucose over 400s on presentation. Will need insulin after discharge. Monitor for risk of fluid overload with IV fluid. Reassess chemistry. Blood glucose. Monitor for risk of hypoglycemia. (4) Hypertension: Blood pressure again elevated today. Continue carvedilol. Added amlodipine. (5) Encounter for screening involving social determinants of health (SDoH): Discussed with special education case manager. Application underway for Medicaid. Does not have health insurance, discontinued insulin as he could not afford it. Has been trying to control his diabetes with diet alone. Significantly elevated blood glucose. Requesting case management consultation. He states has not been able to qualify for Medicare yet. He is not sure about Medicaid. Plan Hypokalemia: Replace additional potassium. Recheck level. Reviewed magnesium: 1.9. Bizarre ideation: Slightly strange behavior reported, during discussion. Reported feeling high . Earlier to me was reporting feeling bored . Denied taking any substance. Has not received any Reglan. Received a dose of [place] earlier in the day. Otherwise oriented. Possible mild delirium secondary to medical condition. Reassess mental status. Caution with any psychoactive medications. Attestations 2 Medical Necessity Statement*: Continue admission for assessment management of severe diabetic foot infection, with uncontrolled diabetes. Diagnoses Abscess of right foot L02.611 Cellulitis of right foot L03.115 Diabetic peripheral neuropathy associated with type 2 diabetes mellitus E11.42 Hypertension I10 Encounter for screening involving social determinants of health (SDoH) Z13.9
[2024-08-08] MEDS: potassium chloride ER 20 mEq Tablet PO (20:50)
[2024-08-08 21:35] LABS: Glucose Point of Care 171 mg/dL (70-110)
[2024-08-08] MEDS: ondansetron 2 mg/ML SDV 2 mL 4 MG IVP (21:43)
[2024-08-09] VITALS (8 sets, daily range): BP systolic 140–185; BP diastolic 76–126; PULSE 93–134; RESP 17–20; TEMP 36.6–37.2; O2SAT 92–95
[2024-08-09] MEDS: hyDRALAzine 20 mg/mL INJ 1 mL 5 MG IVP ×2 (00:19→23:21)
[2024-08-09] MEDS: HYDROcodone-acetaminophen 5-325 mg Tablet 1 TAB PO ×5 (00:19→21:02)
[2024-08-09] MEDS: acetaminophen 325 mg Tablet 650 MG PO (01:50)
[2024-08-09 03:33] LABS: Basophils # 0.1 10^3/uL (0.0-0.1); Basophils % 0.6 %; Eosinophils # 0.1 10^3/uL (0.0-0.8); Eosinophils % 0.8 %; Hematocrit 32.3 % (37-53); Lymphocytes # 3.1 10^3/uL (0.8-4.8); Lymphocytes % 24.2 %; Mean Corpuscular HGB Conc 33.7 g/dL (30-55); Mean Corpuscular Hemoglobin 29.1 pg (27-33); Mean Corpuscular Volume 86.1 fl (82-101); Mean Platelet Volume 8.8 fL (7.4-10.4); Monocytes # 1.5 10^3/uL (0.2-0.9); Neutrophils % 58.6 %; Nucleated Red Blood Cells % 0.2 %; Platelet Count 456 10^3/cmm (157-399); Red Blood Count 3.75 10^6/uL (3.85-5.65); Red Cell Distribution Width 13.1 % (12.1-15.1); White Blood Count 12.79 10^3/uL (3.29-11.43)
[2024-08-09 03:56] LABS: Alanine Aminotransferase 45 U/L (0-41); Albumin Level 2.6 g/dL (3.5-5.2); Alkaline Phosphatase 480 U/L (40-130); Anion Gap 13.9 (5-19); Aspartate Amino Transferase 31 U/L (0-40); Blood Urea Nitrogen 18 mg/dL (8-23); Calcium 8.5 mg/dL (8.5-10.5); Carbon Dioxide 25 mmol/L (22-29); Chloride 98 mmol/L (98-107); Creatinine Clr Calc Pharmacy 87.3916; Globulin 3.7 g/dL (1.3-4.6); Glomerular Filtration Rate 75.2 mL/min (90-130); Glucose 152 mg/dL (65-115); Osmolality Calculated 283 mOsm/kg (285-295); Sodium 134 mmol/L (136-145); Total Protein 6.3 g/dL (6.6-8.7)
[2024-08-09 04:05] LABS: Potassium 2.9 mmol/L (3.5-5.1)
[2024-08-09] MEDS: lidocaine 1% 5 ML in potassium chloride premix 100 ML 26.25 ML IV (04:31)
[2024-08-09] MEDS: piperacillin-tazobactam 3.375 GM in sodium chloride 0.9% (plus) 50 ML IV ×3 (06:08→23:01)
[2024-08-09 06:39] LABS: Glucose Point of Care 170 mg/dL (70-110)
[2024-08-09] MEDS: insulin lispro 100 unit/1 mL SUBCUT ×4 (08:30→21:59)
[2024-08-09] MEDS: potassium chloride ER 20 mEq Tablet PO (08:31)
[2024-08-09] MEDS: atenolol 50 mg Tablet 25 MG PO (08:31)
[2024-08-09] MEDS: amlodipine 5 mg Tablet PO ×2 (08:31→23:02)
[2024-08-09] MEDS: vancomycin 1,750 MG/350 ML PIGGYBACK 175 MG IV ×2 (08:32→20:15)
--- NOTE | 2024-08-09 08:45 | P.PN_ITS ---
Subjective 2 Subjective: Patient seen bedside this morning he is status post incision and debridement multiple areas right foot date of operation 08/07/2024. Patient endorses more swelling at both legs, states he has been sitting on his bed with his feet on the floor. Patient denies any subjective nausea, vomiting, fever, chills, shortness of breath or chest pain. Vitals/I&O/Wt Last Vital Signs Temp 98.9 F 08/09/24 04:00 Pulse 93 08/09/24 04:00 Resp 17 08/09/24 04:00 BP 140/76 08/09/24 04:00 Pulse Ox 93 08/09/24 04:00 O2 Del Method Room Air 08/09/24 04:00 O2 Flow Rate 6 08/07/24 15:01 08/08/24 08/09/24 08/09/24 22:59 06:59 14:59 Intake Total 880 / 1880 50 / 1930 Balance 880 / 1880 50 / 1930 Weight last 48 hrs Weight 214 lb 14.4 oz Weight 207 lb 4.8 oz Physical Exam 2 Narrative: GENERAL: Patient is alert and oriented ?3 and in no acute distress. The following is a focused bilateral lower extremity exam. VASCULAR: Dorsalis pedis palpable bilaterally. Posterior tibial arteries palpable bilaterally. Capillary refill time less than 3 seconds to the distal hallux bilaterally. Calf is supple and nontender proximally and distally. Edema to the right forefoot. Warmth to the right forefoot dorsally. NEUROLOGICAL: Protective sensation intact 0/10 sites, tested with [place] Rafael monofilament to bilateral feet. DERMATOLOGICAL: Deep[place] drain x [address] with serosanguineous drainage, erythema at the right forefoot, no cellulitis or lymphangitic streaking at the level of the right ankle. MUSCULOSKELETAL: Pain to palpation right dorsal forefoot. There is no crepitus with palpation of soft tissue, there is fluctuance palpable at the abscess dorsal aspect of the right forefoot. Data 08/09/24 02:43 08/09/24 02:43 A&P Assessment and plan (1) Abscess of right foot: (2) Diabetic peripheral neuropathy associated with type 2 diabetes mellitus: (3) Cellulitis of right foot: Plan 64-year-old uncontrolled diabetic male with abscess and cellulitis right foot. - Performed I&D of abscess right foot bedside in emergency department 08/05/2024, culture of the abscess sent to microbiology. - Wound culture grew strep B - Recommend continuing empiric IV antibiotics at this time given his right foot clinical picture. - MRI of the right foot with and without contrast 08/06/2024 demonstrated cellulitis with phlegmon collection on, no bony involvement, no osteomyelitis. - Surgical debridement with [place] drain placement performed 08/07/2024 multiple areas of the right forefoot - Dressing change Betadine wet-to-dry, no further ascending cellulitis or lymphangitic streaking at the right foot compared to yesterday. Patient is at risk for amputation of the foot and/or leg right lower extremity, he has had a slow response to surgical debridement and IV antibiotics. This morning there is some improvement in the intensity and level of cellulitis resending down to the right midfoot with less intensity. Cultures grew strep B. Given the extent of the infection with purulence and tracking within the extensor tendons and tunneling and undermining both medial and laterally across the dorsum of the right forefoot on recommending continuation of empiric IV antibiotics at this time once clinical improvement is appreciated we can then narrow antibiotics. Will continue to round daily, white blood cell count trending downward. Attestations 2 Medical Necessity Statement*: Requires continued empiric IV antibiotics at this time potential additional surgical debridement Coding Level of Care Code Acute Code for [facility] Diagnoses Abscess of right foot L02.611 Diabetic peripheral neuropathy associated with type 2 diabetes mellitus E11.42 Cellulitis of right foot L03.115
[2024-08-09] MEDS: insulin glargine 100 units/1 mL 14 UNIT SUBCUT (09:14)
[2024-08-09 11:29] LABS: Glucose Point of Care 234 mg/dL (70-110)
[2024-08-09 18:12] LABS: Glucose Point of Care 314 mg/dL (70-110)
[2024-08-09] MEDS: enoxaparin 40 mg/0.4 mL Syringe SUBCUT (18:34)
[2024-08-09] MEDS: sodium chloride 0.9% 1,000 ML 30 ML IV (20:14)
[2024-08-09] MEDS: morphine 4 mg/mL SDV 1 mL 2 MG IVP (21:52)
[2024-08-09] MEDS: metoprolol tartrate 25 mg Tablet PO (21:55)
--- NOTE | 2024-08-09 22:24 | P.PN_ITS ---
Subjective 2 Subjective: Today he is feeling better. Was reassessed by podiatry. No longer having any feeling of high leg yesterday. Some strange sensation at the base of his pannus on both sides like there are fingers rising . No pain. No welling or rash. He notes some ankle edema. Vitals/I&O/Wt Last Vital Signs Temp 98.5 F 08/09/24 20:00 Pulse 126 H 08/09/24 20:00 Resp 18 08/09/24 21:52 BP 181/112 08/09/24 20:00 Pulse Ox 92 08/09/24 20:00 O2 Del Method Room Air 08/09/24 20:00 O2 Flow Rate 6 08/07/24 15:01 08/09/24 08/09/24 08/09/24 06:59 14:59 22:59 Intake Total 50 / 1930 505 / 505 1313.5 / 1818.5 Output Total 725 / 725 Balance 50 / 1930 -220 / -220 1313.5 / 1093.5 Weight last 48 hrs Weight 97.477 kg Weight 94.03 kg Physical Exam 2 Const: COMMON NORMALS: patient oriented x3 and alert GENERAL APPEARANCE: c ooperative ORIENTATION/CONSCIOUSNESS: Yes awake HENMT: COMMON NORMALS: oropharynx normal Neck/C-Spine: COMMON NORMALS: no JVD Resp: COMMON NORMALS: normal respiratory effort and clear to auscultation bilaterally AUSCULTATION: clear to auscultation bilaterally Cardio: COMMON NORMALS: no JVD, regular rhythm, S1 normal heart sound present, S2 normal heart sound present and No murmurs present (Cardio) RHYTHM: regular rhythm HEART SOUNDS: S1 normal heart sound present and S2 normal heart sound present GI: COMMON NORMALS: Normal to inspection, nondistended, normoactive bowel sounds present, Soft to palpation and non-tender PALPATION: Yes Soft to palpation Extremity: COMMON NORMALS: no joint enlargement OTHER: 1+ ankle edema on the right, trace edema on the left. Neuro: COMMON NORMALS: patient oriented x3 and moves all extremities S ENSORIUM/ORIENTATION: Yes alert Skin: COMMON NORMALS: no rashes or lesions noted NARRATIVE SKIN EXAM: Right foot with dressing in place with mild proximal edema. GENERAL SKIN EXAM: no rashes or lesions noted Data 08/09/24 02:43 08/09/24 02:43 A&P Assessment and plan (1) Abscess of right foot: Purulent cellulitis, phlegmon, soft tissue infection of the right foot, status post additional debridement, Deepika drain in place, reassessment by podiatry. Reviewed vitals, CBC, BMP. Leukocytosis noted improving. He is afebrile. Noted some proximal edema on right lower extremity, will assess duplex ultrasound. Discontinue IV fluid. Will give low-dose Lasix IV push 20 mg times 1 in the morning. Reviewed wound culture. Continue Zosyn. Follow-up wound and blood cultures. For now continue with empiric MRSA coverage. In case no further growth on blood culture, continues to improve, consider de-escalating vancomycin. Reviewed podiatry note. At risk of amputation of the foot. Would like to continue attempts to salvage the foot. Repeat blood counts, chemistry. Continue to optimize blood glucose control. Will need insulin after discharge. May need continued IV antibiotics after discharge. Case management aware. Has been requiring premedication be on Tylenol, IV morphine. hydrocodone for moderate pain. (2) Cellulitis of right foot: As above. (3) Diabetic peripheral neuropathy associated with type 2 diabetes mellitus: Reviewed POC glucose, glucose improving. Continue current regimen. Reassess POC glucose. Continue Lantus dose to 14 units. Continue sliding scale insulin. Monitor for risk of hypoglycemia. With intermittent nausea/vomiting, with suspected gastroparesis. May benefit from follow-up for gastric emptying study. Has Reglan as needed. Will stop Zofran. Consider scheduled Reglan. Monitor for risk of extrapyramidal symptoms. Uncontrolled diabetes, controlled only with diet, previously on insulin, but has not been able to continue due to financial difficulties. A1c reviewed, discussed with him, 12.8. Blood glucose over 400s on presentation. Will need insulin after discharge. Monitor for risk of fluid overload with IV fluid. Reassess chemistry. Blood glucose. Monitor for risk of hypoglycemia. (4) Hypertension: Blood pressure further elevated. Increase amlodipine to 10 mg. Give additional tonight. Continue carvedilol. Hydralazine as needed Stop IV fluid. (5) Encounter for screening involving social determinants of health (SDoH): Discussed with case investigator. Application underway for Medicaid. Does not have health insurance, discontinued insulin as he could not afford it. Has been trying to control his diabetes with diet alone. Significantly elevated blood glucose. Requesting case management consultation. He states has not been able to qualify for Medicare yet. He is not sure about Medicaid. Plan Hypokalemia: Give additional potassium. Recheck level. magnesium: 1.9. Bizarre ideation: So far has resolved. Unclear cause, possibly hydrocodone, versus possibly blood glucose coming closer to normal levels after history of protracted hyperglycemia. Slightly strange behavior reported, during discussion. Reported feeling high . Earlier to me was reporting feeling bored . Denied taking any substance. Has not received any Reglan. Received a dose of [place] earlier in the day. Otherwise oriented. Possible mild delirium secondary to medical condition. Reassess mental status. Caution with any psychoactive medications. Alkaline phosphatase elevation: Unclear cause, possibly mild cholestasis secondary to antibiotic. Does not appear to have bony infection on MRI. Recheck liver parameters. Check GGT. Strange sensation over bilateral pannus: Reports fingerlike sensation on bilateral lower pannus. No rash, no swelling, no erythema or lesions there. Unclear cause. Meralgia paresthetica? Reassess. Attestations 2 Medical Necessity Statement*: Continue admission for assessment management of severe diabetic foot infection, with uncontrolled diabetes. Diagnoses Abscess of right foot L02.611 Cellulitis of right foot L03.115 Diabetic peripheral neuropathy associated with type 2 diabetes mellitus E11.42 Hypertension I10 Encounter for screening involving social determinants of health (SDoH) Z13.9
--- NOTE | 2024-08-09 22:26 | USCV_ITS ---
Antolin Prashant Age: 64 Gender: M : 1960 Exam Date: 08/10/2024 05:56 Ordering Phys: Jhony Caldwell MD Technologist: THOMAS Exam Location: [facility] [place] Indication: LE Swelling HISTORY: Lower extremity swelling. PROCEDURES: Venous duplex imaging was performed in only the right lower extremity. The following venous structures were evaluated: common femoral vein, profunda vein, proximal portion of the greater saphenous vein, superficial femoral vein, and the popliteal vein. In addition, the posterior tibial and peroneal trunk were evaluated. Serial compression, augmentation maneuvers, and spectral Doppler flow evaluation were performed. FINDINGS: Normal 2-D Doppler and augmentation and compressibility throughout the lower extremity venous structures. Additional imaging through the proximal calf veins also reveals no thrombus. Limited evaluation of the greater saphenous vein is patent with no thrombus. CONCLUSIONS No DVT right lower extremity. Dr. Kasey Israel DO (Electronically Signed) Final Date: 12 August 2024 07:41 S
[2024-08-10] VITALS (8 sets, daily range): BP systolic 113–158; BP diastolic 78–116; PULSE 95–120; RESP 15–19; TEMP 36.6–37.4; O2SAT 90–94
[2024-08-10] MEDS: HYDROcodone-acetaminophen 5-325 mg Tablet 1 TAB PO ×4 (01:02→22:18)
[2024-08-10 03:37] LABS: Basophils # 0.1 10^3/uL (0.0-0.1); Basophils % 0.5 %; Eosinophils # 0.1 10^3/uL (0.0-0.8); Eosinophils % 0.7 %; Hematocrit 34.5 % (37-53); Lymphocytes # 2.7 10^3/uL (0.8-4.8); Lymphocytes % 20.8 %; Mean Corpuscular HGB Conc 32.8 g/dL (30-55); Mean Corpuscular Hemoglobin 28.9 pg (27-33); Mean Corpuscular Volume 88.2 fl (82-101); Mean Platelet Volume 8.3 fL (7.4-10.4); Monocytes # 1.4 10^3/uL (0.2-0.9); Monocytes % 10.5 %; Neutrophils # 8.21 10^3/uL (1.8-7.7); Neutrophils % 63.6 %; Nucleated Red Blood Cells % 0.2 %; Platelet Count 589 10^3/cmm (157-399); Red Blood Count 3.91 10^6/uL (3.85-5.65); Red Cell Distribution Width 13.2 % (12.1-15.1); White Blood Count 12.91 10^3/uL (3.29-11.43)
[2024-08-10 04:03] LABS: Gamma Glutamyl Transferase 305 U/L (8-61)
[2024-08-10 04:08] LABS: Alanine Aminotransferase 49 U/L (0-41); Albumin Level 2.9 g/dL (3.5-5.2); Alkaline Phosphatase 516 U/L (40-130); Aspartate Amino Transferase 49 U/L (0-40); Blood Urea Nitrogen 10 mg/dL (8-23); Calcium 8.6 mg/dL (8.5-10.5); Carbon Dioxide 24 mmol/L (22-29); Chloride 96 mmol/L (98-107); Globulin 2.8 g/dL (1.3-4.6); Glomerular Filtration Rate 75.2 mL/min (90-130); Glucose 145 mg/dL (65-115); Osmolality Calculated 282 mOsm/kg (285-295); Sodium 135 mmol/L (136-145); Total Bilirubin 1.1 mg/dL (0.15-1.2); Total Protein 5.7 g/dL (6.6-8.7)
[2024-08-10 04:12] LABS: Anion Gap 18.5 (5-19); Potassium 3.5 mmol/L (3.5-5.1)
[2024-08-10] MEDS: piperacillin-tazobactam 3.375 GM in sodium chloride 0.9% (plus) 50 ML IV ×3 (06:09→22:35)
[2024-08-10] MEDS: FUROsemide 10 mg/mL SDV 2mL 20 MG IVP (06:09)
--- NOTE | 2024-08-10 06:20 | P.PN_ITS ---
Subjective 2 Subjective: Patient seen bedside this morning, was visited by family yesterday. Wanting to know when he can go home. Denies any pain to the right foot. Patient denies any subjective nausea, vomiting, fever, chills, shortness of breath or chest pain. Vitals/I&O/Wt Last Vital Signs Temp 99.3 F 08/10/24 04:00 Pulse 116 H 08/10/24 04:00 Resp 19 H 08/10/24 04:00 BP 156/86 08/10/24 03:43 Pulse Ox 91 08/10/24 04:00 O2 Del Method Room Air 08/10/24 04:00 O2 Flow Rate 6 08/07/24 15:01 08/09/24 08/09/24 08/10/24 14:59 22:59 06:59 Intake Total 505 / 505 1313.5 / 1818.5 76.5 / 1895.0 Output Total 725 / 725 500 / 1225 Balance -220 / -220 1313.5 / 1093.5 -423.5 / 670.0 Weight last 48 hrs Weight 214 lb 14.4 oz Weight 214 lb 14.4 oz Physical Exam 2 Narrative: GENERAL: Patient is alert and oriented ?3 and in no acute distress. The following is a focused bilateral lower extremity exam. VASCULAR: Dorsalis pedis palpable bilaterally. Posterior tibial arteries palpable bilaterally. Capillary refill time less than 3 seconds to the distal hallux bilaterally. Calf is supple and nontender proximally and distally. Edema to the right forefoot. Warmth to the right forefoot dorsally. NEUROLOGICAL: Protective sensation intact 0/10 sites, tested with [place] Rafael monofilament to bilateral feet. DERMATOLOGICAL: [place] drain x [address] with serosanguineous drainage, erythema at the right forefoot, no cellulitis or lymphangitic streaking at the level of the right ankle. MUSCULOSKELETAL: Pain to palpation right dorsal forefoot. There is no crepitus with palpation of soft tissue, there is fluctuance palpable at the abscess dorsal aspect of the right forefoot. Data 08/10/24 03:21 08/10/24 03:21 A&P Assessment and plan (1) Abscess of right foot: (2) Diabetic peripheral neuropathy associated with type 2 diabetes mellitus: (3) Cellulitis of right foot: Plan 64-year-old uncontrolled diabetic male with abscess and cellulitis right foot. - Performed I&D of abscess right foot bedside in emergency department 08/05/2024, culture of the abscess sent to microbiology. - Wound culture grew strep B - Recommend continuing empiric IV antibiotics at this time given his right foot clinical picture. - MRI of the right foot with and without contrast 08/06/2024 demonstrated cellulitis with phlegmon collection on, no bony involvement, no osteomyelitis. - Surgical debridement with Deep[place] drain placement performed 08/07/2024 multiple areas of the right forefoot - Dressing change Betadine wet-to-dry, no further ascending cellulitis or lymphangitic streaking at the right foot compared to yesterday. Recommending wound care clinic follow-up, will discuss with hospitalist antibiotic options. Attestations 2 Medical Necessity Statement*: Requires continued empiric IV antibiotics at this time potential additional surgical debridement Coding Level of Care Code Acute Code for [facility] Diagnoses Abscess of right foot L02.611 Diabetic peripheral neuropathy associated with type 2 diabetes mellitus E11.42 Cellulitis of right foot L03.115
[2024-08-10 06:56] LABS: Glucose Point of Care 175 mg/dL (70-110)
[2024-08-10 07:38] LABS: C Reactive Protein 86.4 mg/L (0.0-4.9)
[2024-08-10 08:07] LABS: Erythrocyte Sedimentation Rate 107 mm/hr (0-10)
[2024-08-10] MEDS: amlodipine 5 mg Tablet 10 MG PO (08:58)
[2024-08-10] MEDS: atenolol 50 mg Tablet 25 MG PO (08:59)
[2024-08-10] MEDS: insulin lispro 100 unit/1 mL SUBCUT ×4 (09:00→22:36)
[2024-08-10] MEDS: hyDRALAzine 20 mg/mL INJ 1 mL 5 MG IVP (09:01)
[2024-08-10] MEDS: vancomycin 1,750 MG/350 ML PIGGYBACK 175 MG IV (09:06)
[2024-08-10] MEDS: insulin glargine 100 units/1 mL 14 UNIT SUBCUT (09:06)
[2024-08-10] MEDS: labetalol 5 mg/mL SDV 20mL 10 MG IVP (10:58)
[2024-08-10 12:08] LABS: Glucose Point of Care 232 mg/dL (70-110)
[2024-08-10 14:14] LABS: HIV 1 & 2 Antibody Non-Reactive (Non-Reactiv); HIV 1 & 2 Antigen Non-Reactive (Non-Reactiv)
[2024-08-10 14:16] LABS: Procalcitonin 0.33 ng/mL (0-0.5); Thyroid Stimulating Hormone 3.16 uIU/mL (0.27-4.20); Vitamin B12 558 pg/mL (232-1245)
[2024-08-10 14:23] LABS: Hepatitis A Antibody IgM Non-Reactive (Nonreactive); Hepatitis B Core AB, Total Reactive (Nonreactive); Hepatitis B Surface AB < 3.5 (11.5-1000); Hepatitis B Surface Antigen Non-Reactive (Nonreactive); Hepatitis C Virus Antibody Non-Reactive (Nonreactive)
[2024-08-10 14:27] LABS: Iron 23 ug/dL (59-158); Percent Saturation 11.8 % (20-50); Total Iron Binding Capacity 194 mcg/dl; Unsaturated Iron Binding 171 ug/dL (112-347)
--- NOTE | 2024-08-10 17:21 | P.PN_ITS ---
Subjective 2 Subjective: Hospital course, labs appreciated. Laying comfortably in bed. States pain is well-controlled. Complaining of itching at the site of dressing. Has remained hemodynamically stable and afebrile. Blood pressure is elevated earlier today morning. Vitals/I&O/Wt Last Vital Signs Temp 99.4 F 08/10/24 15:38 Pulse 97 08/10/24 15:38 Resp 16 08/10/24 15:38 BP 129/80 08/10/24 15:38 Pulse Ox 92 08/10/24 15:38 O2 Del Method Room Air 08/10/24 15:38 O2 Flow Rate 6 08/07/24 15:01 08/10/24 08/10/24 08/10/24 06:59 14:59 22:59 Intake Total 76.5 / 1895.0 756 / 756 Output Total 1250 / 1975 Balance -1173.5 / -80.0 756 / 756 Weight last 48 hrs Weight 97.477 kg Weight 97.477 kg Physical Exam 2 Const: COMMON NORMALS: patient oriented x3 and alert GENERAL APPEARANCE: c ooperative ORIENTATION/CONSCIOUSNESS: Yes awake HENMT: COMMON NORMALS: oropharynx normal Neck/C-Spine: COMMON NORMALS: no JVD Resp: COMMON NORMALS: normal respiratory effort and clear to auscultation bilaterally AUSCULTATION: clear to auscultation bilaterally Cardio: COMMON NORMALS: no JVD, regular rhythm, S1 normal heart sound present, S2 normal heart sound present and No murmurs present (Cardio) RHYTHM: regular rhythm HEART SOUNDS: S1 normal heart sound present and S2 normal heart sound present GI: COMMON NORMALS: Normal to inspection, nondistended, normoactive bowel sounds present, Soft to palpation and non-tender PALPATION: Yes Soft to palpation Extremity: COMMON NORMALS: no joint enlargement and no pedal edema OTHER: 1+ ankle edema on the right, trace edema on the left. Neuro: COMMON NORMALS: patient oriented x3 and moves all extremities S ENSORIUM/ORIENTATION: Yes alert Skin: COMMON NORMALS: no rashes or lesions noted NARRATIVE SKIN EXAM: Right foot with dressing in place with mild proximal edema. GENERAL SKIN EXAM: no rashes or lesions noted Data 08/10/24 03:21 08/10/24 03:21 Micro: Microbiology 08/05/24 13:48 Blood Culture - Final Blood NO GROWTH AFTER 5 DAYS 08/05/24 13:51 Blood Culture - Final Blood NO GROWTH AFTER 5 DAYS A&P Assessment and plan (1) Abscess of right foot: Purulent cellulitis, phlegmon, soft tissue infection of the right foot, status post additional debridement, [place] drain in place, reassessment by podiatry. Reviewed vitals, CBC, BMP. Leukocytosis noted improving. He is afebrile. Noted some proximal edema on right lower extremity, will assess duplex ultrasound. Discontinue IV fluid. Will give low-dose Lasix IV push 20 mg times 1 in the morning. Reviewed wound culture. Continue Zosyn. Follow-up wound and blood cultures. For now continue with empiric MRSA coverage. In case no further growth on blood culture, continues to improve, consider de-escalating vancomycin. Reviewed podiatry note. At risk of amputation of the foot. Would like to continue attempts to salvage the foot. Repeat blood counts, chemistry. Continue to optimize blood glucose control. Will need insulin after discharge. May need continued IV antibiotics after discharge. Case management aware. Has been requiring premedication be on Tylenol, IV morphine. hydrocodone for moderate pain. (2) Cellulitis of right foot: As above. (3) Diabetic peripheral neuropathy associated with type 2 diabetes mellitus: Reviewed POC glucose, glucose improving. Continue current regimen. Reassess POC glucose. Continue Lantus dose to 14 units. Continue sliding scale insulin. Monitor for risk of hypoglycemia. With intermittent nausea/vomiting, with suspected gastroparesis. May benefit from follow-up for gastric emptying study. Has Reglan as needed. Will stop Zofran. Consider scheduled Reglan. Monitor for risk of extrapyramidal symptoms. Uncontrolled diabetes, controlled only with diet, previously on insulin, but has not been able to continue due to financial difficulties. A1c reviewed, discussed with him, 12.8. Blood glucose over 400s on presentation. Will need insulin after discharge. Monitor for risk of fluid overload with IV fluid. Reassess chemistry. Blood glucose. Monitor for risk of hypoglycemia. (4) Hypertension: Blood pressure further elevated. Increase amlodipine to 10 mg. Give additional tonight. Continue carvedilol. Hydralazine as needed Stop IV fluid. (5) Encounter for screening involving social determinants of health (SDoH): Discussed with counseling case manager. Application underway for Medicaid. Does not have health insurance, discontinued insulin as he could not afford it. Has been trying to control his diabetes with diet alone. Significantly elevated blood glucose. Requesting case management consultation. He states has not been able to qualify for Medicare yet. He is not sure about Medicaid. Plan Hypokalemia: Give additional potassium. Recheck level. magnesium: 1.9. Bizarre ideation: So far has resolved. Unclear cause, possibly hydrocodone, versus possibly blood glucose coming closer to normal levels after history of protracted hyperglycemia. Slightly strange behavior reported, during discussion. Reported feeling high . Earlier to me was reporting feeling bored . Denied taking any substance. Has not received any Reglan. Received a dose of [place] earlier in the day. Otherwise oriented. Possible mild delirium secondary to medical condition. Reassess mental status. Caution with any psychoactive medications. Alkaline phosphatase elevation: Unclear cause, possibly mild cholestasis secondary to antibiotic. Does not appear to have bony infection on MRI. Recheck liver parameters. Check GGT. Strange sensation over bilateral pannus: Reports fingerlike sensation on bilateral lower pannus. No rash, no swelling, no erythema or lesions there. Unclear cause. Meralgia paresthetica? Reassess. Plan for the day: Blood pressure significantly elevated at today morning along with tachycardia. IV labetalol 10 mg one-time. Later in the day blood pressures were stable. Continue with amlodipine 10 mg oral daily. Add Coreg 3.125 mg twice daily, losartan 50 mg oral daily. Continue with insulin sliding scale Lantus 14 units nightly. Blood sugar stable. Appreciate podiatry recommendations. High concerns for significant infection with worsening which could put patient's limb at risk. Requesting ID recommendations. Will consult. Continue with IV Zosyn. OR cultures growing strep. Will consult case management as patient would require new PCP as an outpatient, financial assistance with the possibility of 3 40B and IV antibiotics as an outpatient. He is agreeable. Does have transaminitis. Check hepatitis panel, HIV. Attestations 2 Medical Necessity Statement*: Requires further hospitalization for management of abscess of right foot along with cellulitis in setting of severe uncontrolled type 2 diabetes mellitus, hypertension with tachycardia Diagnoses Abscess of right foot L02.611 Cellulitis of right foot L03.115 Diabetic peripheral neuropathy associated with type 2 diabetes mellitus E11.42 Hypertension I10 Encounter for screening involving social determinants of health (SDoH) Z13.9
[2024-08-10 17:31] LABS: Glucose Point of Care 195 mg/dL (70-110)
[2024-08-10] MEDS: enoxaparin 40 mg/0.4 mL Syringe SUBCUT (17:33)
[2024-08-10 20:42] LABS: Glucose Point of Care 202 mg/dL (70-110)
[2024-08-11] VITALS (8 sets, daily range): BP systolic 135–180; BP diastolic 73–122; PULSE 103–107; RESP 16–18; TEMP 36.8–37.1; O2SAT 90–95
[2024-08-11 06:01] LABS: Basophils # 0.1 10^3/uL (0.0-0.1); Basophils % 0.4 %; Eosinophils # 0.1 10^3/uL (0.0-0.8); Eosinophils % 0.8 %; Hematocrit 32.5 % (37-53); Lymphocytes # 3.3 10^3/uL (0.8-4.8); Lymphocytes % 27.6 %; Mean Corpuscular HGB Conc 33.5 g/dL (30-55); Mean Corpuscular Hemoglobin 29.5 pg (27-33); Mean Corpuscular Volume 87.8 fl (82-101); Mean Platelet Volume 8.3 fL (7.4-10.4); Monocytes # 1.2 10^3/uL (0.2-0.9); Monocytes % 9.8 %; Neutrophils # 7.12 10^3/uL (1.8-7.7); Neutrophils % 59.3 %; Nucleated Red Blood Cells % 0 %; Platelet Count 716 10^3/cmm (157-399); Red Cell Distribution Width 13.4 % (12.1-15.1); White Blood Count 12.02 10^3/uL (3.29-11.43)
[2024-08-11 06:18] LABS: Chol HDL Ratio 4.25 mg/dL (1.0-5.00); Cholesterol 136 mg/dL (0-200); HDL Cholesterol 32 mg/dL (60-100); LDL Cholesterol Calculated 69 mg/dL (50-129); Magnesium 1.9 mg/dL (1.7-2.3); Triglycerides 174 mg/dL (0-150); VLDL Cholestrol Calculation 35 mg/dL (0-30)
[2024-08-11 06:19] LABS: Alanine Aminotransferase 33 U/L (0-41); Albumin Level 2.8 g/dL (3.5-5.2); Alkaline Phosphatase 411 U/L (40-130); Aspartate Amino Transferase 26 U/L (0-40); Blood Urea Nitrogen 9 mg/dL (8-23); Calcium 8.5 mg/dL (8.5-10.5); Carbon Dioxide 27 mmol/L (22-29); Chloride 99 mmol/L (98-107); Globulin 3.6 g/dL (1.3-4.6); Glomerular Filtration Rate 75.2 mL/min (90-130); Glucose 136 mg/dL (65-115); Osmolality Calculated 285 mOsm/kg (285-295); Sodium 137 mmol/L (136-145); Total Bilirubin 0.9 mg/dL (0.15-1.2); Total Protein 6.4 g/dL (6.6-8.7)
[2024-08-11] MEDS: piperacillin-tazobactam 3.375 GM in sodium chloride 0.9% (plus) 50 ML IV (06:20)
[2024-08-11] MEDS: HYDROcodone-acetaminophen 5-325 mg Tablet 1 TAB PO ×2 (06:21→17:11)
[2024-08-11 06:35] LABS: Glucose Point of Care 143 mg/dL (70-110)
--- NOTE | 2024-08-11 07:23 | PM.PN ---
Subjective Subjective: Patient seen bedside this morning, was visited by family yesterday. Denies any pain to the right foot. Patient denies any subjective nausea, vomiting, fever, chills, shortness of breath or chest pain. Vitals/I&O/Wt Last Vital Signs Temp 98.8 F 08/11/24 04:00 Pulse 106 H 08/11/24 04:00 Resp 17 08/11/24 04:00 BP 180/122 08/11/24 04:00 Pulse Ox 91 08/11/24 04:00 O2 Del Method Room Air 08/11/24 04:00 O2 Flow Rate 6 08/07/24 15:01 08/10/24 08/11/24 08/11/24 22:59 06:59 14:59 Intake Total 314 / 1070 290 / 1360 Output Total 700 / 700 Balance -386 / 370 290 / 660 Weight last 48 hrs Weight 206 lb Weight 214 lb 14.4 oz Physical Exam Narrative: GENERAL: Patient is alert and oriented ?3 and in no acute distress. The following is a focused bilateral lower extremity exam. VASCULAR: Dorsalis pedis palpable bilaterally. Posterior tibial arteries palpable bilaterally. Capillary refill time less than 3 seconds to the distal hallux bilaterally. Calf is supple and nontender proximally and distally. Edema to the right forefoot. Warmth to the right forefoot dorsally. NEUROLOGICAL: Protective sensation intact 0/10 sites, tested with [place] monofilament to bilateral feet. DERMATOLOGICAL: [place] drain x [address] with serosanguineous drainage, erythema at the right forefoot, no cellulitis or lymphangitic streaking at the level of the right ankle. MUSCULOSKELETAL: Pain to palpation right dorsal forefoot. There is no crepitus with palpation of soft tissue, there is fluctuance palpable at the abscess dorsal aspect of the right forefoot. Data 08/11/24 05:30 08/11/24 05:30 Micro: Microbiology 08/05/24 13:48 Blood Culture - Final Blood NO GROWTH AFTER 5 DAYS 08/05/24 13:51 Blood Culture - Final Blood NO GROWTH AFTER 5 DAYS A&P Assessment and plan (1) Abscess of right foot: (2) Diabetic peripheral neuropathy associated with type 2 diabetes mellitus: (3) Cellulitis of right foot: Plan 64-year-old uncontrolled diabetic male with abscess and cellulitis right foot. - Performed I&D of abscess right foot bedside in emergency department 08/05/2024, culture of the abscess sent to microbiology. - Wound culture grew strep B - Recommend continuing empiric IV antibiotics at this time given his right foot clinical picture. - MRI of the right foot with and without contrast 08/06/2024 demonstrated cellulitis with phlegmon collection on, no bony involvement, no osteomyelitis. - Surgical debridement with [place] drain placement x 2 performed 08/07/2024 - Dressing change Betadine wet-to-dry, improving erythema and improving/subsiding cellulitis right foot. - Would appreciate antibiotic recommendations from infectious disease standpoint Podiatry will follow. Attestations Medical Necessity Statement*: Requires further hospitalization for management of abscess of right foot along with cellulitis in setting of severe uncontrolled type 2 diabetes mellitus, hypertension with tachycardia Coding Level of Care Code Acute Code for [facility] Diagnoses Abscess of right foot L02.611 Diabetic peripheral neuropathy associated with type 2 diabetes mellitus E11.42 Cellulitis of right foot L03.115
[2024-08-11 08:22] LABS: Folate Level > 20.0 ng/mL (4.5-32.2)
[2024-08-11] MEDS: insulin glargine 100 units/1 mL 14 UNIT SUBCUT (08:55)
[2024-08-11] MEDS: insulin lispro 100 unit/1 mL SUBCUT ×4 (08:55→20:39)
[2024-08-11] MEDS: losartan 50 mg Tablet PO (08:56)
[2024-08-11] MEDS: amlodipine 5 mg Tablet 10 MG PO (08:57)
[2024-08-11] MEDS: carvedilol 3.125 mg Tablet PO (08:57)
[2024-08-11 10:40] LABS: Glucose Point of Care 219 mg/dL (70-110)
[2024-08-11] MEDS: hyDRALAzine 20 mg/mL INJ 1 mL 5 MG IVP (11:37)
[2024-08-11] MEDS: carvedilol 6.25 mg Tablet PO ×2 (11:37→17:09)
[2024-08-11] MEDS: cefTRIAXone 1,000 mg SDV 1000 MG IVP (12:18)
--- NOTE | 2024-08-11 13:36 | P.CONIM_ITS ---
Providers/Reason For Consult 2 Consulting Physician/Specialty*: Brandie Pike MD/ infectious disease Reason for Consult*: cellulitis of foot Attending Physician: Willis Andrews MD Primary Care Provider: Babita Rangel MD History of Present Illness History of Present Illness Prashant Dangelo is a 64 year old male past medical history of diabetes mellitus past A1c 12.8%, neuropathy who presented to the emergency room with chief complaints of increased redness and edema on the right foot. He had an initially noticed symptoms 1 week ago. Initially this was thought to be gout, however due to progression of symptoms he presented back into the emergency room. CT, negative negative x-rays Guirgius palpable abscess at the dorsal aspect of the right first metatarsophalangeal joint (surrounding erythema and cellulitis. He underwent I&D 0.6?24.. Guirgius present on the left extensor tendons right dorsal forefoot. Culture negative group B streptococcus. -2023 demonstrated cellulitis with phlegmon without any bony involvement or signs of osteomyelitis. Pain improved with escalated diuretic. Infectious disease consulted for outpatient antibiotic recommendations. Discussed improvement with piperacillin/tazobactam and vancomycin Review of Systems 2 General: Reports: 10 or more systems reviewed and unremarkable except in HPI and below Const: Denies: fever(s), chills or body aches Eyes: Denies: change in vision, blurry vision or photophobia ENMT: Reports: hoarseness; Denies: throat pain, enlarged tonsils, odynophagia or nasal congestion Card: Denies: chest pain, palpitations, irregular heart rhythm, edema, swelling of feet/ankles, lightheadedness, pre-syncope, dyspnea on exertion or orthopnea Resp: Denies: dyspnea, productive cough, non-productive cough, wheezing, stridor, pain on inspiration, change in phlegm color, hemoptysis or chest congestion GI: Denies: abdominal pain, nausea, vomiting, hematemesis, coffee ground emesis, dysphagia, heartburn, diarrhea, constipation, GI cramping, change in stool character, hematochezia or melena : Denies: flank pain, dysuria, urinary frequency, urinary urgency, urinary hesitancy or hematuria Musc: Denies: neck pain, back pain, extremity pain, joint swelling, joint warmth or deformity Neuro: Denies: headache(s), numbness in extremities, weakness in extremities, sensory changes, difficulty walking, frequent falls, dizziness, vertigo, behavioral changes, Slurred speech present or seizure-like activity Psych: Denies: anxiety, depression, suicidal ideation or homicidal ideation Endo: Denies: polyuria, polydipsia, tired all the time, cold intolerance or hot flashes Trevor/Lymph: Denies: easy bruising or easy bleeding Medications/Allergies Home Medications Medication Instructions Recorded Confirmed Last Taken Type aspirin 81 mg chewable tablet 81 mg PO DAILY 07/19/20 08/13/24 05/30/21 History colchicine 0.6 mg tablet 1.2 mg (2 x 0.6 mg) PO BID #10 tabs 07/29/24 08/13/24 Unknown Rx amlodipine 10 mg tablet 10 mg PO DAILY #90 tabs 08/12/24 08/13/24 Unknown Rx carvedilol 12.5 mg tablet (Coreg) 12.5 mg PO BID 3 months #180 tabs 08/12/24 08/13/24 Unknown Rx glimepiride 3 mg tablet 3 mg PO DAILY 3 months #90 tabs 08/12/24 08/13/24 Unknown Rx insulin glargine 100 unit/mL (3 10 unit (0.1 mL) SUBCUT DAILY #15 08/12/24 08/13/24 Unknown Rx mL) subcutaneous pen (Basaglar mL KwikPen U-100 Insulin) losartan 100 mg tablet 100 mg PO DAILY 3 months #90 tabs 08/12/24 08/13/24 Unknown Rx Allergies Allergy/AdvReac Type Severity Reaction Status Date / Time No Known Allergies Allergy Verified 08/13/24 15:46 Current Medications Generic Name Dose Route Start Last Admin Trade Name Freq PRN Reason Stop Dose Admin Acetaminophen 650 mg 08/05/24 17:34 08/09/24 01:50 Acetaminophen 325 Mg Tablet PO 650 mg Q6H PRN Administration Mild/Mod Pain Or Temp >/= 101 Hydrocodone Bitart/Acetaminophen 1 tab 08/06/24 14:58 08/11/24 06:21 Hydrocodone-Acetaminophen 5-325 Mg Tablet PO 1 tab Q4H PRN Administration MODERATE PAIN Amlodipine Besylate 10 mg 08/10/24 09:00 08/11/24 08:57 Amlodipine 5 Mg Tablet PO 10 mg DAILY RAAD Administration Carvedilol 6.25 mg 08/11/24 09:00 08/11/24 11:37 Carvedilol 6.25 Mg Tablet PO 6.25 mg BID RAAD Administration Ceftriaxone Sodium 1,000 mg 08/11/24 11:45 08/11/24 12:18 Ceftriaxone 1,000 Mg Sdv IVP 1,000 mg Q24H RAAD Administration Protocol Enoxaparin Sodium 40 mg 08/05/24 18:00 08/10/24 17:33 Enoxaparin 40 Mg/0.4 Ml Syringe SUBCUT 40 mg Q24H RAAD Administration Hydralazine HCl 5 mg 08/06/24 23:55 08/11/24 11:37 Hydralazine 20 Mg/Ml Inj 1 Ml IVP 5 mg Q4H PRN Administration bp>180/100 Insulin Glargine 14 unit 08/09/24 09:00 08/11/24 08:55 Insulin Glargine 100 Units/1 Ml SUBCUT 14 unit DAILY RAAD Administration Insulin Human Lispro 0 unit 08/05/24 18:00 08/11/24 11:38 Insulin Lispro 100 Unit/1 Ml SUBCUT 4 unit WM&BEDTIME RAAD Administration Protocol Losartan Potassium 50 mg 08/11/24 09:00 08/11/24 08:56 Losartan 50 Mg Tablet PO 50 mg DAILY RAAD Administration PFSH Acute 2 PFSH: Medical History Hypertension Diabetes Social History Smoking and tobacco/nicotine status: never used tobacco/nicotine Vitals/I&O/Wt Last Vital Signs Temp 98.4 F 08/11/24 11:20 Pulse 107 H 08/11/24 11:20 Resp 16 08/11/24 11:20 BP 156/105 08/11/24 11:20 Pulse Ox 91 08/11/24 11:20 O2 Del Method Room Air 08/11/24 11:20 O2 Flow Rate 6 08/07/24 15:01 08/10/24 08/11/24 08/11/24 22:59 06:59 14:59 Intake Total 314 / 1070 290 / 1360 286 / 286 Output Total 700 / 700 Balance -386 / 370 290 / 660 286 / 286 Weight last 48 hrs Weight 93.44 kg Weight 97.477 kg Physical Exam 2 Narrative: General: No acute distress, AO x3 HEENT: PERRLA, pupils bilaterally equal and reactive, pallors not present Chest: Normal vesicular breath sounds, no added sounds, equal good air entry bilaterally CVS: S1-S2 regular, no murmurs, no tachycardia, no gallops, no rubs Abdomen: Soft, nontender, no organomegaly, bowel sounds present Neuro: No focal deficits, no facial deformity, AO x3, power 5/5 in all limbs Extremities: Surgical dressing in place not open for exam Data 08/12/24 06:42 08/12/24 06:42 Micro: Microbiology 08/05/24 13:48 Blood Culture - Final Blood NO GROWTH AFTER 5 DAYS 08/05/24 13:51 Blood Culture - Final Blood NO GROWTH AFTER 5 DAYS Other data: Radiology Impressions Foot X-Ray 08/05/24 12:23 IMPRESSION: 1. Moderate soft tissue swelling mid and distal right foot. 2. No other acute findings. Foot MRI 08/06/24 09:30 IMPRESSION: 1. Diffuse cellulitis throughout the foot. The most significant area of enhancement and edema is centered around the first metatarsophalangeal joint and first toe. 2. There are a few small intermediate signal collections between the first and second proximal phalanges. These are most consistent with phlegmonous collections. The largest measures 9 x 4 mm. These are not fluid-filled at this time and only mild peripheral enhancement. Laboratory Results WBC 11.23 10^3/uL (3.29-11.43) 08/12/24 06:42 RBC 3.85 10^6/uL (3.85-5.65) 08/12/24 06:42 Hgb 11.30 g/dL (11.27-16.99) 08/12/24 06:42 Hct 34.8 % (37-53) L 08/12/24 06:42 MCV 90.4 fl (82-101) 08/12/24 06:42 MCH 29.4 pg (27-33) 08/12/24 06:42 MCHC 32.5 g/dL (30-55) 08/12/24 06:42 RDW 13.3 % (12.1-15.1) 08/12/24 06:42 Plt Count 751 10^3/cmm (157-399) H 08/12/24 06:42 MPV 8.1 fL (7.4-10.4) 08/12/24 06:42 Neut % (Auto) 59.1 % 08/12/24 06:42 Lymph % (Auto) 29.6 % 08/12/24 06:42 Lyman % (Auto) 8.5 % 08/12/24 06:42 Eos % (Auto) 1.1 % 08/12/24 06:42 Baso % (Auto) 0.4 % 08/12/24 06:42 Neut # (Auto) 6.64 10^3/uL (1.8-7.7) 08/12/24 06:42 Lymph # (Auto) 3.3 10^3/uL (0.8-4.8) 08/12/24 06:42 Lyman # (Auto) 1.0 10^3/uL (0.2-0.9) H 08/12/24 06:42 Eos # (Auto) 0.1 10^3/uL (0.0-0.8) 08/12/24 06:42 Baso # (Auto) 0.0 10^3/uL (0.0-0.1) 08/12/24 06:42 Nucleated RBC % (auto) 0 % 08/12/24 06:42 Nucleated RBCs # 0.0 /100WBC 08/12/24 06:42 ESR 107 mm/hr (0-10) H 08/10/24 03:21 Specimen Type Venous 08/05/24 20:06 Sample Site Not specified 08/05/24 20:06 Semaj Test N/a 08/05/24 20:06 VBG pH 7.50 (7.32-7.42) H 08/05/24 20:06 VBG pCO2 36.6 mmHg (41-51) L 08/05/24 20:06 VBG pO2 68.1 mmHg (25-40) H 08/05/24 20:06 VBG HCO3 28.5 mmol/L (24-28) H 08/05/24 20:06 VBG Base Excess 5.2 mmol/L (-3.0-3.0) H 08/05/24 20:06 VBG Hematocrit 38.5 % (42-52) L 08/05/24 20:06 O2 Delivery Device None 08/05/24 20:06 Automation Machine Operator ID [id number] 08/05/24 20:06 Sodium 138 mmol/L (136-145) 08/12/24 06:42 Potassium 3.4 mmol/L (3.5-5.1) L 08/12/24 06:42 Chloride 100 mmol/L (98-107) 08/12/24 06:42 Carbon Dioxide 25 mmol/L (22-29) 08/12/24 06:42 Anion Gap 16.4 (5-19) 08/12/24 06:42 BUN 8 mg/dL (8-23) 08/12/24 06:42 Creatinine 0.9 mg/dL (0.7-1.2) 08/12/24 06:42 GFR Calculation 85.0 mL/min (90-130) L 08/12/24 06:42 Glucose 108 mg/dL (65-115) 08/12/24 06:42 POC Glucose 192 mg/dL (70-110) H 08/12/24 11:03 Estimat Average Glucose 321 08/05/24 12:57 Hemoglobin A1c 12.8 % (4.0-6.0) H 08/05/24 12:57 Calculated Osmolality 285 mOsm/kg (285-295) 08/12/24 06:42 Lactic Acid 2.6 mmol/L (0.5-2.2) H 08/05/24 12:57 Lactic Acid (Sepsis) 2.6 mmol/L (0.5-2.2) H 08/05/24 17:16 Calcium 8.7 mg/dL (8.5-10.5) 08/12/24 06:42 Magnesium 1.9 mg/dL (1.7-2.3) 08/12/24 06:42 Iron 23 ug/dL (59-158) L 08/10/24 03:21 TIBC 194 mcg/dl 08/10/24 03:21 % Saturation 11.8 % (20-50) L 08/10/24 03:21 Unsat Iron Binding 171 ug/dL (112-347) 08/10/24 03:21 Total Bilirubin 0.8 mg/dL (0.15-1.2) 08/12/24 06:42 GGT 305 U/L (8-61) H 08/10/24 03:21 AST 40 U/L (0-40) 08/12/24 06:42 ALT 35 U/L (0-41) 08/12/24 06:42 Alkaline Phosphatase 430 U/L (40-130) H 08/12/24 06:42 C-Reactive Protein 86.4 mg/L (0.0-4.9) H 08/10/24 03:21 NT-Pro-B Natriuret Pep 1749 pg/mL (0-125) H 08/05/24 12:57 Total Protein 6.4 g/dL (6.6-8.7) L 08/12/24 06:42 Albumin 2.8 g/dL (3.5-5.2) L 08/12/24 06:42 Globulin 3.6 g/dL (1.3-4.6) 08/12/24 06:42 Triglycerides 174 mg/dL (0-150) H 08/11/24 05:30 Cholesterol 136 mg/dL (0-200) 08/11/24 05:30 LDL Cholesterol, Calc 69 mg/dL (50-129) 08/11/24 05:30 Total VLDL Cholesterol 35 mg/dL (0-30) H 08/11/24 05:30 HDL Cholesterol 32 mg/dL (60-100) L 08/11/24 05:30 Cholesterol/HDL Ratio 4.25 mg/dL (1.0-5.00) 08/11/24 05:30 Vitamin B12 558 pg/mL (232-1245) 08/10/24 03:21 Folate > 20.0 ng/mL (4.5-32.2) 08/11/24 05:30 Beta-Hydroxybutyrate 1.80 mmol/L H 08/05/24 12:57 Procalcitonin 0.33 ng/mL (0-0.5) 08/10/24 03:21 TSH 3.16 uIU/mL (0.27-4.20) 08/10/24 03:21 Vancomycin Trough 16.5 ug/mL (10-15) H 08/07/24 17:42 Hepatitis A IgM Ab Non-reactive (Nonreactive) 08/10/24 03:21 Hep Bs Antigen Non-reactive (Nonreactive) 12/09/24 03:21 Hep Bs Antibody < 3.5 (11.5-1000) L 08/10/24 03:21 Hep B Core Total Ab Reactive (Nonreactive) H 08/10/24 03:21 Hepatitis C Antibody Non-reactive (Nonreactive) 08/10/24 03:21 HIV 1&2 Ab & HIV 1 Ag Non-reactive (Non-Reactiv) 08/10/24 03:21 HIV 1&2 Antibody Non-reactive (Non-Reactiv) 08/10/24 03:21 A&P Assessment and plan (1) Abscess of right foot: (2) Cellulitis of right foot: Plan 65-year-old male currently admitted to the hospital with right foot cellulitis and abscess Status post I&D on 08/07/2024. Currently leukocytosis has resolved. MRI of the foot is negative for osteomyelitis Blood culture negative to date. Uncontrolled diabetes remains his biggest risk factor for poor wound healing. Culture from the OR revealing group B streptococcus Given severity of infection and high risk of antibiotic failure, would have preferred to treat patient with IV antibiotics for limb salvage. However there are several scheduled obviously doing the same. Patient states that he does not have a payer source for IV antibiotics at home. Additionally he states that there is nobody at home to help him with these IV antibiotics. He would have preferred ceftriaxone in keeping with cultures, however he will be unable to come in to our infusion center for daily antibiotic administration as he has been debrided away of getting here. He states he can only come into primary alternate days. Is not an option for him. In the setting would prefer to use IV dalbavancin as outpatient. While patient is inpatient can discontinue Zosyn and vancomycin and transition to ceftriaxone 1 g IV every 24 hours based on the culture. No eveidence of MRSA or enterococcus on cx. Discharge on iv Dalbavancin 1000mg x 1 followed by 500mg iv x 1 one week later recommend close follow up with podiatry as outpatient discussed high risk of abx failure due to uncontrolled DM Thank you for this consult. Please call with any further questions or concerns Consult Attestations 2 Medical Necessity Statement: per admitting Coding Level of Care Code Acute Code for Chg Fwd High MDM includes number and complexity of problems actively addressed during encounter, amount and/or complexity of data reviewed/ordered and described risk of complication, morbidity or mortality of management as documented Diagnoses Abscess of right foot L02.611 Cellulitis of right foot L03.115
--- NOTE | 2024-08-11 15:37 | PM.PN ---
Subjective Subjective: No acute vents overnight patient has remained afebrile. Blood pressure slightly elevated today morning. Blood sugars better controlled. Vitals/I&O/Wt Last Vital Signs Temp 98.4 F 08/11/24 11:20 Pulse 107 H 08/11/24 11:20 Resp 16 08/11/24 11:20 BP 156/105 08/11/24 11:20 Pulse Ox 91 08/11/24 11:20 O2 Del Method Room Air 08/11/24 11:20 O2 Flow Rate 6 08/07/24 15:01 08/11/24 08/11/24 08/11/24 06:59 14:59 22:59 Intake Total 290 / 1360 286 / 286 Balance 290 / 660 286 / 286 Weight last 48 hrs Weight 93.44 kg Weight 97.477 kg Physical Exam Const: COMMON NORMALS: patient oriented x3 and alert GENERAL APPEARANCE: cooperative ORIENTATION/CONSCIOUSNESS: Yes awake HENMT: COMMON NORMALS: oropharynx normal Neck/C-Spine: COMMON NORMALS: no JVD Resp: COMMON NORMALS: normal respiratory effort and clear to auscultation bilaterally AUSCULTATION: clear to auscultation bilaterally Cardio: COMMON NORMALS: no JVD, regular rhythm, S1 normal heart sound present, S2 normal heart sound present and No murmurs present (Cardio) RHYTHM: regular rhythm HEART SOUNDS: S1 normal heart sound present and S2 normal heart sound present GI: COMMON NORMALS: Normal to inspection, nondistended, normoactive bowel sounds present, Soft to palpation and non-tender PALPATION: Yes Soft to palpation Extremity: COMMON NORMALS: no joint enlargement and no pedal edema OTHER: 1+ ankle edema on the right, trace edema on the left. Neuro: COMMON NORMALS: patient oriented x3 and moves all extremities SENSORIUM/ORIENTATION: Yes alert Skin: COMMON NORMALS: no rashes or lesions noted NARRATIVE SKIN EXAM: Right foot with dressing in place with mild proximal edema. GENERAL SKIN EXAM: no rashes or lesions noted Data 08/11/24 05:30 08/11/24 05:30 Micro: Microbiology 08/05/24 13:48 Blood Culture - Final Blood NO GROWTH AFTER 5 DAYS 08/05/24 13:51 Blood Culture - Final Blood NO GROWTH AFTER 5 DAYS A&P Assessment and plan (1) Abscess of right foot: Purulent cellulitis, phlegmon, soft tissue infection of the right foot, status post additional debridement, [place] drain in place, reassessment by podiatry. Reviewed vitals, CBC, BMP. Leukocytosis noted improving. He is afebrile. Noted some proximal edema on right lower extremity, will assess duplex ultrasound. Discontinue IV fluid. Will give low-dose Lasix IV push 20 mg times 1 in the morning. Reviewed wound culture. Continue Zosyn. Follow-up wound and blood cultures. For now continue with empiric MRSA coverage. In case no further growth on blood culture, continues to improve, consider de-escalating vancomycin. Reviewed podiatry note. At risk of amputation of the foot. Would like to continue attempts to salvage the foot. Repeat blood counts, chemistry. Continue to optimize blood glucose control. Will need insulin after discharge. May need continued IV antibiotics after discharge. Case management aware. Has been requiring premedication be on Tylenol, IV morphine. hydrocodone for moderate pain. (2) Cellulitis of right foot: As above. (3) Diabetic peripheral neuropathy associated with type 2 diabetes mellitus: Reviewed POC glucose, glucose improving. Continue current regimen. Reassess POC glucose. Continue Lantus dose to 14 units. Continue sliding scale insulin. Monitor for risk of hypoglycemia. With intermittent nausea/vomiting, with suspected gastroparesis. May benefit from follow-up for gastric emptying study. Has Reglan as needed. Will stop Zofran. Consider scheduled Reglan. Monitor for risk of extrapyramidal symptoms. Uncontrolled diabetes, controlled only with diet, previously on insulin, but has not been able to continue due to financial difficulties. A1c reviewed, discussed with him, 12.8. Blood glucose over 400s on presentation. Will need insulin after discharge. Monitor for risk of fluid overload with IV fluid. Reassess chemistry. Blood glucose. Monitor for risk of hypoglycemia. (4) Hypertension: Blood pressure further elevated. Increase amlodipine to 10 mg. Give additional tonight. Continue carvedilol. Hydralazine as needed Stop IV fluid. (5) Encounter for screening involving social determinants of health (SDoH): Discussed with block and case maker. Application underway for Medicaid. Does not have health insurance, discontinued insulin as he could not afford it. Has been trying to control his diabetes with diet alone. Significantly elevated blood glucose. Requesting case management consultation. He states has not been able to qualify for Medicare yet. He is not sure about Medicaid. Plan Hypokalemia: Give additional potassium. Recheck level. magnesium: 1.9. Bizarre ideation: So far has resolved. Unclear cause, possibly hydrocodone, versus possibly blood glucose coming closer to normal levels after history of protracted hyperglycemia. Slightly strange behavior reported, during discussion. Reported feeling high . Earlier to me was reporting feeling bored . Denied taking any substance. Has not received any Reglan. Received a dose of [place] earlier in the day. Otherwise oriented. Possible mild delirium secondary to medical condition. Reassess mental status. Caution with any psychoactive medications. Alkaline phosphatase elevation: Unclear cause, possibly mild cholestasis secondary to antibiotic. Does not appear to have bony infection on MRI. Recheck liver parameters. Check GGT. Strange sensation over bilateral pannus: Reports fingerlike sensation on bilateral lower pannus. No rash, no swelling, no erythema or lesions there. Unclear cause. Meralgia paresthetica? Reassess. Plan for the day: Blood pressure slightly better controlled but still elevated. Increase losartan to 100 mg daily, Coreg to 6.25 mg twice daily. Continue with amlodipine 10 mg oral daily. Antibiotics switched to IV ceftriaxone as per ID recommendations. Most likely plan to transition to IV dalbavancin once every week on discharge. Case management working on the same. Patient states he would not be able to get medication as an outpatient because of financial constraints. Will try to transition him over to oral hypoglycemics along with one-time Lantus. Start on glimepiride 2 mg twice daily. Otherwise continue with the Lantus and sliding scale at the same dose currently. Monitor for hypoglycemia. Hepatitis panel negative. LFTs resolving today. Attestations Medical Necessity Statement*: Requires further hospitalization for management of uncontrolled hypertension and type 2 diabetes mellitus, abscess of the right foot with cellulitis while outpatient antibiotics are arranged Diagnoses Abscess of right foot L02.611 Cellulitis of right foot L03.115 Diabetic peripheral neuropathy associated with type 2 diabetes mellitus E11.42 Hypertension I10 Encounter for screening involving social determinants of health (SDoH) Z13.9
[2024-08-11] MEDS: losartan 50 mg Tablet 25 MG PO (15:49)
[2024-08-11 16:47] LABS: Glucose Point of Care 251 mg/dL (70-110)
[2024-08-11] MEDS: enoxaparin 40 mg/0.4 mL Syringe SUBCUT (17:09)
[2024-08-11] MEDS: glimepiride 2 mg Tablet PO (17:09)
[2024-08-11 20:21] LABS: Glucose Point of Care 146 mg/dL (70-110)
[2024-08-12] VITALS (7 sets, daily range): BP systolic 145–176; BP diastolic 75–101; PULSE 101–113; RESP 14–19; TEMP 36.7–37.2; O2SAT 90–93
[2024-08-12] MEDS: HYDROcodone-acetaminophen 5-325 mg Tablet 1 TAB PO ×2 (00:44→08:22)
[2024-08-12] MEDS: glimepiride 2 mg Tablet PO (06:13)
--- NOTE | 2024-08-12 06:28 | P.PN_ITS ---
Subjective 2 Subjective: Patient seen bedside this morning, Denies any pain to the right foot. Patient denies any subjective nausea, vomiting, fever, chills, shortness of breath or chest pain. Vitals/I&O/Wt Last Vital Signs Temp 98.9 F 08/12/24 04:00 Pulse 103 H 08/12/24 04:00 Resp 17 08/12/24 04:00 BP 156/90 08/12/24 04:00 Pulse Ox 93 08/12/24 04:00 O2 Del Method Room Air 08/12/24 04:00 O2 Flow Rate 6 08/07/24 15:01 08/11/24 08/11/24 08/12/24 14:59 22:59 06:59 Intake Total 286 / 286 418 / 704 250 / 954 Balance 286 / 286 418 / 704 250 / 954 Weight last 48 hrs Weight 206 lb Weight 206 lb Physical Exam 2 Narrative: GENERAL: Patient is alert and oriented ?3 and in no acute distress. The following is a focused bilateral lower extremity exam. VASCULAR: Dorsalis pedis palpable bilaterally. Posterior tibial arteries palpable bilaterally. Capillary refill time less than 3 seconds to the distal hallux bilaterally. Calf is supple and nontender proximally and distally. Edema to the right forefoot. Warmth to the right forefoot dorsally. NEUROLOGICAL: Protective sensation intact 0/10 sites, tested with [place] monofilament to bilateral feet. DERMATOLOGICAL: [place] drain x [address] with serosanguineous drainage, subsiding erythema at the right forefoot, no cellulitis or lymphangitic streaking at the level of the right ankle. MUSCULOSKELETAL: Pain to palpation right dorsal forefoot. There is no crepitus with palpation of soft tissue, there is fluctuance palpable at the abscess dorsal aspect of the right forefoot. Data 08/12/24 06:42 08/11/24 05:30 A&P Assessment and plan (1) Abscess of right foot: (2) Diabetic peripheral neuropathy associated with type 2 diabetes mellitus: (3) Cellulitis of right foot: Plan 64-year-old uncontrolled diabetic male with abscess and cellulitis right foot. - Performed I&D of abscess right foot bedside in emergency department 08/05/2024, culture of the abscess sent to microbiology. - Wound culture grew strep B - MRI of the right foot with and without contrast 08/06/2024 demonstrated cellulitis with phlegmon collection on, no bony involvement, no osteomyelitis. - Surgical debridement with [place] drain placement x 2 performed 08/07/2024 - Dressing change Betadine wet-to-dry, improving erythema and improving/subsiding cellulitis right foot. - Appreciate antibiotic recommendations from infectious disease standpoint Significant improvement, resolved cellulitis, erythema significantly improved and is subsided down to the margin of the wounds at the right distal forefoot, no purulent drainage, [place] drains were removed this a.m. New Betadine wet-to-dry dressing change, educated patient on dressing change technique. May use postop shoe to transfer. Follow-up with in podiatry clinic outpatient this 08/13/2024 3:30 PM Attestations 2 Medical Necessity Statement*: Requires further hospitalization for management of uncontrolled hypertension and type 2 diabetes mellitus, abscess of the right foot with cellulitis while outpatient antibiotics are arranged Coding Level of Care Code Acute Code for [facility] Diagnoses Abscess of right foot L02.611 Diabetic peripheral neuropathy associated with type 2 diabetes mellitus E11.42 Cellulitis of right foot L03.115
[2024-08-12 06:35] LABS: Glucose Point of Care 105 mg/dL (70-110)
[2024-08-12 06:58] LABS: Basophils % 0.4 %; Eosinophils # 0.1 10^3/uL (0.0-0.8); Eosinophils % 1.1 %; Hematocrit 34.8 % (37-53); Lymphocytes # 3.3 10^3/uL (0.8-4.8); Lymphocytes % 29.6 %; Mean Corpuscular HGB Conc 32.5 g/dL (30-55); Mean Corpuscular Hemoglobin 29.4 pg (27-33); Mean Corpuscular Volume 90.4 fl (82-101); Mean Platelet Volume 8.1 fL (7.4-10.4); Monocytes % 8.5 %; Neutrophils # 6.64 10^3/uL (1.8-7.7); Neutrophils % 59.1 %; Nucleated Red Blood Cells % 0 %; Platelet Count 751 10^3/cmm (157-399); Red Blood Count 3.85 10^6/uL (3.85-5.65); Red Cell Distribution Width 13.3 % (12.1-15.1); White Blood Count 11.23 10^3/uL (3.29-11.43)
[2024-08-12 07:16] LABS: Alanine Aminotransferase 35 U/L (0-41); Albumin Level 2.8 g/dL (3.5-5.2); Alkaline Phosphatase 430 U/L (40-130); Anion Gap 16.4 (5-19); Aspartate Amino Transferase 40 U/L (0-40); Blood Urea Nitrogen 8 mg/dL (8-23); Calcium 8.7 mg/dL (8.5-10.5); Carbon Dioxide 25 mmol/L (22-29); Chloride 100 mmol/L (98-107); Creatinine Clr Calc Pharmacy 96.8249; Globulin 3.6 g/dL (1.3-4.6); Glucose 108 mg/dL (65-115); Osmolality Calculated 285 mOsm/kg (285-295); Potassium 3.4 mmol/L (3.5-5.1); Sodium 138 mmol/L (136-145); Total Bilirubin 0.8 mg/dL (0.15-1.2); Total Protein 6.4 g/dL (6.6-8.7)
[2024-08-12 07:19] LABS: Magnesium 1.9 mg/dL (1.7-2.3)
[2024-08-12] MEDS: losartan 50 mg Tablet 100 MG PO (08:22)
[2024-08-12] MEDS: carvedilol 6.25 mg Tablet PO (08:22)
[2024-08-12] MEDS: amlodipine 5 mg Tablet 10 MG PO (08:22)
[2024-08-12] MEDS: insulin glargine 100 units/1 mL 14 UNIT SUBCUT (08:28)
[2024-08-12] MEDS: cefTRIAXone 1,000 mg SDV 1000 MG IVP (11:05)
--- NOTE | 2024-08-12 11:09 | P.DS_ITS ---
Discharge Providers Date of Admission: 08/05/24 15:37 Date of Discharge: August 12, 2024 Attending Provider at Admission: Jhony Caldwell Attending Provider at Discharge: Willis Andrews MD Consults: Podiatry: Dr. Goodman CASTILLO Primary Care Provider: Babita Ranegl MD Diagnoses at Discharge Discharge Diagnosis (1) Abscess of right foot: Status: Acute (2) Diabetic peripheral neuropathy associated with type 2 diabetes mellitus: Status: Acute (3) Cellulitis of right foot: Status: Acute Reason for Visit Reason for Visit: Right foot swollen Brief History: History as per HPI: Pleasant 64-year-old gentleman with history of diabetes, several years ago he has been on insulin, however, with lack of health insurance and financial difficulty has not been able to continue on insulin and has been managing his diabetes with diet, was assessed in the emergency department on 07/29 with right great toe pain and redness, with suspected gout at that time was prescribed colchicine, hydrocodone, and asked to follow-up with PCP. Today he presents to emergency room with swelling, redness, pain of the right great toe and foot with worsening last Saturday and particular worsening in the last 24 hours. During my visit noted with purulent drainage from dorsal right great toe. He is found to have sinus tachycardia 106, WBC 21.48, lactic acid elevated 2.6. CRP elevated 455.6. Procalcitonin 0.99. Foot x-ray with moderate soft tissue swelling mid and distal right foot. Blood cultures were obtained. He received vancomycin, 1 L fluid bolus. Podiatry is consulted. Hospital Course Hospital Course Patient was admitted to the hospital further evaluation and management of abscess of right foot in setting of uncontrolled type 2 diabetes mellitus and cellulitis. Osteomyelitis was ruled out with MRI on admission. Podiatry was consulted. He was started on broad-spectrum antibiotics and he underwent incision and drainage below fascia with multiple areas of in the right foot. He was found to have heavy white purulence at extensor tendons of right dorsal forefoot. Given concerns for extensive infection for limb salvage she was continued on IV antibiotics. His blood culture during hospitalization remain negative though OR cultures were positive for group B strep. Infectious disease was consulted. During hospitalization was found to have uncontrolled type 2 diabetes mellitus and hypertension for which both of his medications were adjusted. Antibiotics were tailored as per culture sensitivities. He has been discharged in medically stable condition with advised to follow-up with podiatry as an outpatient. Given financial constraints medications have been provided to the patient for next 3 months. He is to take Lantus 10 units nightly along with glimepiride 3 mg oral daily. He has been advised to get dalbavancin as per antibiotics once weekly with first dose on 08/13 for 2 weeks. Physical Exam Const: COMMON NORMALS: patient oriented x3 and alert GENERAL APPEARANCE: cooperative ORIENTATION/CONSCIOUSNESS: Yes awake HENMT: COMMON NORMALS: oropharynx normal Neck/C-Spine: COMMON NORMALS: no JVD Resp: COMMON NORMALS: normal respiratory effort and clear to auscultation bilaterally AUSCULTATION: clear to auscultation bilaterally Cardio: COMMON NORMALS: no JVD, regular rhythm, S1 normal heart sound present, S2 normal heart sound present and No murmurs present (Cardio) RHYTHM: regular rhythm HEART SOUNDS: S1 normal heart sound present and S2 normal heart sound present GI: COMMON NORMALS: Normal to inspection, nondistended, normoactive bowel sounds present, Soft to palpation and non-tender PALPATION: Yes Soft to palpation Extremity: COMMON NORMALS: no joint enlargement and no pedal edema OTHER: 1+ ankle edema on the right, trace edema on the left. Neuro: COMMON NORMALS: patient oriented x3 and moves all extremities SENSORIUM/ORIENTATION: Yes alert Skin: COMMON NORMALS: no rashes or lesions noted NARRATIVE SKIN EXAM: Right foot with dressing in place with mild proximal edema. GENERAL SKIN EXAM: no rashes or lesions noted Discharge Data Studies Completed and Pending Completed Studies During Hospitalization Category Date Time Status XR foot RT min 3V* [id number] Stat Exams 08/05/24 12:23 Completed MR foot RT wo/w con [id number] Routine MRI 08/06/24 09:30 [place] [id number] Routine Ultrasound 08/09/24 22:26 Completed Pending at discharge Category Date Time Status MAG [Magnesium] AM LABS Lab 08/13/24 04:00 Ordered Radiology Impressions Foot X-Ray 08/05/24 12:23 IMPRESSION: 1. Moderate soft tissue swelling mid and distal right foot. 2. No other acute findings. Foot MRI 08/06/24 09:30 IMPRESSION: 1. Diffuse cellulitis throughout the foot. The most significant area of enhanc ement and edema is centered around the first metatarsophalangeal joint and first toe. 2. There are a few small intermediate signal collections between the first and second proximal phalanges. These are most consistent with phlegmonous collections. The largest measures 9 x 4 mm. These are not fluid-filled at this time and only mild peripheral enhancement. Microbiology 08/05/24 13:48 Blood Blood Culture - Final NO GROWTH AFTER 5 DAYS 08/05/24 13:51 Blood Blood Culture - Final NO GROWTH AFTER 5 DAYS 08/05/24 14:36 Foot Right Wound Culture - Final Strep agalactiae - (group b) Laboratory Results WBC 11.23 10^3/uL (3.29-11.43) 08/12/24 06:42 RBC 3.85 10^6/uL (3.85-5.65) 08/12/24 06:42 Hgb 11.30 g/dL (11.27-16.99) 08/12/24 06:42 Hct 34.8 % (37-53) L 08/12/24 06:42 MCV 90.4 fl (82-101) 08/12/24 06:42 MCH 29.4 pg (27-33) 08/12/24 06:42 MCHC 32.5 g/dL (30-55) 08/12/24 06:42 RDW 13.3 % (12.1-15.1) 08/12/24 06:42 Plt Count 751 10^3/cmm (157-399) H 08/12/24 06:42 MPV 8.1 fL (7.4-10.4) 08/12/24 06:42 Neut % (Auto) 59.1 % 08/12/24 06:42 Lymph % (Auto) 29.6 % 08/12/24 06:42 [place]aca % (Auto) 8.5 % 08/12/24 06:42 Eos % (Auto) 1.1 % 08/12/24 06:42 Baso % (Auto) 0.4 % 08/12/24 06:42 Neut # (Auto) 6.64 10^3/uL (1.8-7.7) 08/12/24 06:42 Lymph # (Auto) 3.3 10^3/uL (0.8-4.8) 08/12/24 06:42 Baca # (Auto) 1.0 10^3/uL (0.2-0.9) H 08/12/24 06:42 Eos # (Auto) 0.1 10^3/uL (0.0-0.8) 08/12/24 06:42 Baso # (Auto) 0.0 10^3/uL (0.0-0.1) 08/12/24 06:42 Nucleated RBC % (auto) 0 % 08/12/24 06:42 Nucleated RBCs # 0.0 /100WBC 08/12/24 06:42 ESR 107 mm/hr (0-10) H 08/10/24 03:21 Specimen Type Venous 08/05/24 20:06 Sample Site Not specified 08/05/24 20:06 Semaj Test N/a 08/05/24 20:06 VBG pH 7.50 (7.32-7.42) H 08/05/24 20:06 VBG pCO2 36.6 mmHg (41-51) L 08/05/24 20:06 VBG pO2 68.1 mmHg (25-40) H 08/05/24 20:06 VBG HCO3 28.5 mmol/L (24-28) H 08/05/24 20:06 VBG Base Excess 5.2 mmol/L (-3.0-3.0) H 08/05/24 20:06 VBG Hematocrit 38.5 % (42-52) L 08/05/24 20:06 O2 Delivery Device None 08/05/24 20:06 [employer] ID [facility] 08/05/24 20:06 Sodium 138 mmol/L (136-145) 08/12/24 06:42 Potassium 3.4 mmol/L (3.5-5.1) L 08/12/24 06:42 Chloride 100 mmol/L (98-107) 08/12/24 06:42 Carbon Dioxide 25 mmol/L (22-29) 08/12/24 06:42 Anion Gap 16.4 (5-19) 08/12/24 06:42 BUN 8 mg/dL (8-23) 08/12/24 06:42 Creatinine 0.9 mg/dL (0.7-1.2) 08/12/24 06:42 GFR Calculation 85.0 mL/min (90-130) L 08/12/24 06:42 Glucose 108 mg/dL (65-115) 08/12/24 06:42 POC Glucose 105 mg/dL (70-110) 08/12/24 06:31 Estimat Average Glucose 321 08/05/24 12:57 Hemoglobin A1c 12.8 % (4.0-6.0) H 08/05/24 12:57 Calculated Osmolality 285 mOsm/kg (285-295) 08/12/24 06:42 Lactic Acid 2.6 mmol/L (0.5-2.2) H 08/05/24 12:57 Lactic Acid (Sepsis) 2.6 mmol/L (0.5-2.2) H 08/05/24 17:16 Calcium 8.7 mg/dL (8.5-10.5) 08/12/24 06:42 Magnesium 1.9 mg/dL (1.7-2.3) 08/12/24 06:42 Iron 23 ug/dL (59-158) L 08/10/24 03:21 TIBC 194 mcg/dl 08/10/24 03:21 % Saturation 11.8 % (20-50) L 08/10/24 03:21 Unsat Iron Binding 171 ug/dL (112-347) 08/10/24 03:21 Total Bilirubin 0.8 mg/dL (0.15-1.2) 08/12/24 06:42 GGT 305 U/L (8-61) H 08/10/24 03:21 AST 40 U/L (0-40) 08/12/24 06:42 ALT 35 U/L (0-41) 08/12/24 06:42 Alkaline Phosphatase 430 U/L (40-130) H 08/12/24 06:42 C-Reactive Protein 86.4 mg/L (0.0-4.9) H 08/10/24 03:21 NT-Pro-B Natriuret Pep 1749 pg/mL (0-125) H 08/05/24 12:57 Total Protein 6.4 g/dL (6.6-8.7) L 08/12/24 06:42 Albumin 2.8 g/dL (3.5-5.2) L 08/12/24 06:42 Globulin 3.6 g/dL (1.3-4.6) 08/12/24 06:42 Triglycerides 174 mg/dL (0-150) H 08/11/24 05:30 Cholesterol 136 mg/dL (0-200) 08/11/24 05:30 LDL Cholesterol, Calc 69 mg/dL (50-129) 08/11/24 05:30 Total VLDL Cholesterol 35 mg/dL (0-30) H 08/11/24 05:30 HDL Cholesterol 32 mg/dL (60-100) L 08/11/24 05:30 Cholesterol/HDL Ratio 4.25 mg/dL (1.0-5.00) 08/11/24 05:30 Vitamin B12 558 pg/mL (232-1245) 08/10/24 03:21 Folate > 20.0 ng/mL (4.5-32.2) 08/11/24 05:30 Beta-Hydroxybutyrate 1.80 mmol/L H 08/05/24 12:57 Procalcitonin 0.33 ng/mL (0-0.5) 08/10/24 03:21 TSH 3.16 uIU/mL (0.27-4.20) 08/10/24 03:21 Vancomycin Trough 16.5 ug/mL (10-15) H 08/07/24 17:42 Hepatitis A IgM Ab Non-reactive (Nonreactive) 08/10/24 03:21 Hep Bs Antigen Non-reactive (Nonreactive) 08/10/24 03:21 Hep Bs Antibody < 3.5 (11.5-1000) L 08/10/24 03:21 Hep B Core Total Ab Reactive (Nonreactive) H 08/10/24 03:21 Hepatitis C Antibody Non-reactive (Nonreactive) 08/10/24 03:21 HIV 1&2 Ab & HIV 1 Ag Non-reactive (Non-Reactiv) 08/10/24 03:21 HIV 1&2 Antibody Non-reactive (Non-Reactiv) 08/10/24 03:21 Vitals Last Vital Signs Temp 98.2 F 08/12/24 07:43 Pulse 113 H 08/12/24 07:43 Resp 18 08/12/24 07:43 BP 145/89 08/12/24 09:30 Pulse Ox 90 08/12/24 07:43 O2 Del Method Room Air 08/12/24 07:43 O2 Flow Rate 6 08/07/24 15:01 Discharge Plan Discharge Patient Disposition: Home Condition: Stable Prescriptions: New carvedilol [Coreg] 12.5 mg tablet 12.5 mg PO BID 90 Days Qty: 180 2RF Rx Instructions: must administer with a meal/food losartan 100 mg tablet 100 mg PO DAILY 90 Days Qty: 90 2RF amlodipine 10 mg tablet 10 mg PO DAILY Qty: 90 2RF glimepiride 3 mg tablet 3 mg PO DAILY 90 Days Qty: 90 0RF insulin glargine [Basaglar KwikPen U-100 Insulin] 100 unit/mL (3 mL) insulin pen 10 unit SUBCUT DAILY Qty: 15 0RF Continued aspirin 81 mg Tablet,Chewable 81 mg PO DAILY colchicine 0.6 mg tablet 1.2 mg PO BID Qty: 10 0RF Discontinued acetaminophen [Tylenol] 325 mg Tablet 325 mg PO QID PRN (Reason: Pain) naproxen sodium [Aleve] 220 mg Tablet 220 mg PO BID PRN (Reason: Pain) Discharge Orders: Discharge Order (Routine); Ordered 08/12/24 Ordered By: Willis Andrews Referrals: [facility] [Outside] - 08/13/24 4:00 pm (Following your appointment with Dr. Alicea, you will have your appointment at the infusion center for your antibiotic. Please go straight there as your appointment is at 4:00. On 08/20/24, your appointment for your antibiotic is at 3:30 at the [facility] infusion center. ) Babita Rangel MD [Primary Care Provider] - 08/19/24 3:30 pm Ladarius Alicea DPM [Physician] - 08/13/24 3:30 pm Jose Davis MD [Physician] - 10/07/24 10:00 am Patient Instructions: Losartan (By mouth), Carvedilol (By mouth), Acute Wound Care (DC), Opioid Safety, Post Anesthesia Care Activity Restrictions/Additional Instructions: Wound care recommendations from Dr. Alicea Once daily Betadine wet-to-dry right foot, 4 x 4 gauze, Kerlix and Jose A wrap Postop shoe for ambulating Follow-up with Dr. Alicea 08/13/2024 at 3:30 PM in podiatry clinic [facility] medical office building Contact podiatry clinic with any questions or concerns [phone] You will be on 3 medications for high blood pressure including amlodipine 10 mg oral daily, losartan 100 mg oral daily along with Coreg 12.5 mg twice daily. For diabetes take glimepiride 3 mg oral in morning along with long-acting insulin 10 units 1 time a day. Please follow-up with a primary care provider on set appointment. You will be scheduled for antibiotic called as dalbavancin on 08/13 and 08/20. Follow-up with Dr. Alicea on his set appointment. Discharge Attestations Time Spent in Discharge Care*: greater than 30 min Specific Discharge Activities: educating patient, discussing with pcp/other providers, discussing with case finisher/social workers/dc planners, documenting/other paperwork and evaluating patient/reviewing data Status at Discharge: Cognitive status at discharge: cognitively intact , Behavioral status at discharge: cooperative , Functional status at discharge: independent ambulation , Overall status at discharge: patient is progressing back to baseline Quality Metrics Clinical Quality Measures [ No reported AMI, CVA or VTE this stay] Coding Level of Care Code 31464 Total time (in minutes) for Discharge: 60 Diagnoses Abscess of right foot L02.611 Diabetic peripheral neuropathy associated with type 2 diabetes mellitus E11.42 Cellulitis of right foot L03.115
[2024-08-12 11:37] LABS: Glucose Point of Care 192 mg/dL (70-110)
[2024-08-12] MEDS: insulin lispro 100 unit/1 mL SUBCUT (12:10)
== END 2024-08-12 13:33 | disposition home or self-care (01) | DRG 623 ==
LOC: ER 14:29 → MEDSURG 15:38
PROVIDERS: Emergency Medicine; Podiatrist Foot & Ankle Surgery; Student in an Organized Health Care Education/Training Program; Admitting Provider Internal Medicine; Emergency Provider Physician Assistant; PCP Family Medicine; Visit Provider Student in an Organized Health Care Education/Training Program
PROC: 0JBQ0ZZ Excision of Right Foot Subcutaneous Tissue and Fascia, Open Approach (ICD-10-PCS; principal; 2024-08-07 14:00)
DX: E11.65 Type 2 diabetes mellitus with hyperglycemia (principal); E87.20 Acidosis, unspecified; L02.611 Cutaneous abscess of right foot; L03.115 Cellulitis of right lower limb; F05 Delirium due to known physiological condition; E11.628 Type 2 diabetes mellitus with other skin complications; B95.1 Streptococcus, group B, as the cause of diseases classified elsewhere; E11.42 Type 2 diabetes mellitus with diabetic polyneuropathy; L03.031 Cellulitis of right toe; I10 Essential (primary) hypertension; T38.3X6A Underdosing of insulin and oral hypoglycemic [antidiabetic] drugs, initial encounter; Z91.120 Patient's intentional underdosing of medication regimen due to financial hardship; E87.6 Hypokalemia; R11.2 Nausea with vomiting, unspecified; R74.8 Abnormal levels of other serum enzymes; Z79.82 Long term (current) use of aspirin
CPT/HCPCS: 36415; 36416; 73630; 73720; 80048; 80053; 80061; 80202; 82010; 82607; 82746; 82803; 82962; 82977; 83036; 83540; 83550; 83605; 83735; 83880; 84132; 84145; 84443; 85025; 85651; 86140; 86705; 86706; 86709; 86803; 87040; 87070; 87186; 87340; 87806; 93005; 93971; 96365; 96372; 96375; 97760; 99285; A9577; J0360; J0696; J1650; J1815; J1940; J2270; J2405; J2543; J2704; J3010; J3370; J3372; J3475; J3480; J3490; J7030; J7050; L3260

== ENCOUNTER 2024-08-20 15:30 | Oncology outpatient (recurring) (ONCR) | payer SELFPAY ==
[2024-08-13 16:15] VITALS: BP 162/100; PULSE 99; RESP 18; TEMP 36.4; O2SAT 94
[2024-08-13] MEDS: DALBAVANCIN IV (16:22)
[2024-08-13] MEDS: DEXTROSE 5% IV (16:22)
[2024-08-13 17:11] VITALS: BP 168/104; PULSE 99; RESP 16; TEMP 36.8; O2SAT 96
[2024-08-20] MEDS: dalbavancin 500 MG in dextrose 5 % 100 ML 200 MG IV (15:20)
== END 2024-09-01 23:59 | disposition home or self-care (01) ==
PROVIDERS: PCP Family Medicine; Visit Provider Internal Medicine Medical Oncology
DX: L02.611 Cutaneous abscess of right foot (principal); L03.115 Cellulitis of right lower limb; Z79.899 Other long term (current) drug therapy
CPT/HCPCS: 96365; J0875; J7060

== ENCOUNTER → 2024-10-07 11:19 | Outpatient (BNVA) | payer OTHER, MEDICAID, SELFPAY | PROVIDERS: PCP Family Medicine; Visit Provider Family Medicine | DX: E11.9 Type 2 diabetes mellitus without complications (principal); E11.42 Type 2 diabetes mellitus with diabetic polyneuropathy; E11.621 Type 2 diabetes mellitus with foot ulcer; I10 Essential (primary) hypertension; L02.611 Cutaneous abscess of right foot; L03.90 Cellulitis, unspecified; L97.509 Non-pressure chronic ulcer of other part of unspecified foot with unspecified severity | CPT/HCPCS: 80053; 83036 ==

== ENCOUNTER 2024-12-07 13:17 | Emergency (ER) | payer OTHER, SELFPAY ==
[2024-12-07 13:21] VITALS: BP 213/139; PULSE 81; RESP 16; TEMP 36.6; O2SAT 97
--- NOTE | 2024-12-07 13:42 | W.ED.GENADLT ---
HPI - General Adult General: Chief complaint: General Medical Stated complaint: high bp Time Seen by Provider: 12/07/24 13:39 Source: patient Mode of arrival: ambulatory Limitations: no limitations History of Present Illness: Patient is a nice 64-year-old male who presents to ED today after he was sent here from the walk-in clinic for evaluation of hypertension. Patient states he had went to the wound care clinic today for a routine appointment regarding chronic wounds to his right foot. They reportedly checked his blood pressure they are routinely and found it to be significantly elevated thus, following his appointment, they recommended he be seen at the walk-in clinic. At the walk-in clinic he was reportedly given a total of 0.3 mg of clonidine without much response thus they sent patient to the emergency department. At time of arrival, patient states he feels pretty much at his baseline. He has a known history of hypertension and takes multiple medications for this all of which she took this morning. He does not routinely check his blood pressure at home and does not know what a normal blood pressure for him is. He does mention a very mild headache. He is not having any chest pain or difficulty breathing. No visual changes. Associated symptoms: Reports no associated symptoms and headache(s) (very mild); Deny chest pain, confusion, dyspnea, malaise, nausea, rash or vomiting Treatments prior to arrival: none Related Data Home Medications ?Medication ?Instructions ?Recorded ?Confirmed aspirin 81 mg chewable tablet 81 mg PO DAILY 07/19/20 12/07/24 glimepiride 1 mg tablet 3 mg PO DAILY 12/07/24 12/07/24 Previous Rx's ?Medication ?Instructions ?Recorded amlodipine 10 mg tablet 10 mg PO DAILY #90 tabs 10/07/24 carvedilol 12.5 mg tablet (Coreg) 12.5 mg PO BID 3 months #180 tabs 10/07/24 losartan 100 mg tablet 100 mg PO DAILY 3 months #90 tabs 10/07/24 insulin glargine 100 unit/mL (3 25 unit (0.25 mL) SUBCUT QAM #15 mL 11/19/24 mL) subcutaneous pen (Basaglar KwikPen U-100 Insulin) Allergies Allergy/AdvReac Type Severity Reaction Status Date / Time berries Allergy ALGY-Rash Uncoded 12/07/24 13:28 Review of Systems Const: Denies: fever(s), chills, body aches, fatigue or malaise Eyes: Denies: change in vision, blurry vision or photophobia Card: Denies: chest pain Resp: Denies: dyspnea GI: Denies: nausea or vomiting Musc: Denies: neck pain, back pain, extremity pain, extremity swelling, joint swelling or joint redness Skin/Breast: Denies: rash Neuro: Reports: headache(s) (very mild); Denies: numbness in extremities, weakness in extremities, sensory changes, difficulty walking, dizziness, confusion, behavioral changes, difficulty communicating thoughts or seizure-like activity [facility] ED PFSH: Medical History Diabetic peripheral neuropathy associated with type 2 diabetes mellitus Abscess of right foot Diabetic foot ulcer Hypertension Diabetes Social History Smoking and tobacco/nicotine status: never used tobacco/nicotine Physical Exam Const: COMMON NORMALS: no acute distress, average body habitus, patient oriented x3, no limitations, healthy appearing, alert and well nourished GENERAL APPEARANCE: cooperative ORIENTATION/CONSCIOUSNESS: Yes awake, Yes oriented to person, Yes oriented to place and Yes oriented to time Eye: GENERAL EYE: appearance normal, both eyes and all related structures Resp: COMMON NORMALS: normal respiratory effort and clear to auscultation bilaterally AUSCULTATION: clear to auscultation bilaterally Cardio: COMMON NORMALS: regular rate and regular rhythm RATE: regular rate RHYTHM: regular rhythm Extremity: GENERAL: Yes normal exam except as noted Neuro: IZABEL COMA SCALE: document GCS findings Izabel coma scale eye opening: Spontaneous Stafford coma scale verbal response: Orientated Izabel coma scale motor response: Obey commands Stafford coma scale total score: 15 COMMON NORMALS: patient oriented x3, CN's II-XII intact bilaterally, moves all extremities, no focal motor deficits, no sensory deficits noted and gait normal SENSORIUM/ORIENTATION: Yes alert, Yes oriented to person, Yes oriented to place and Yes oriented to time Skin: COMMON NORMALS: no rashes or lesions noted GENERAL SKIN EXAM: no rashes or lesions noted Course Vital Signs: Vital signs: Vital Signs Temperature 97.9 F 12/07/24 13:21 Pulse Rate 78 12/07/24 14:22 Respiratory Rate 16 12/07/24 13:57 Blood Pressure 122/81 12/07/24 14:37 Pulse Oximetry 97 12/07/24 13:57 Oxygen Delivery Me thod Room Air 12/07/24 13:57 MDM - General Adult Medical Decision Making Patient here after he was instructed to come here from walk-in clinic due to hypertension. At time of arrival his blood pressure was 213/139. After my initial examination with patient, this was re-cycled blood pressure was already down to 160s/120s. He was given 10mg IV hydralazine and on repeat examination blood pressure is 122/81. Recommend he keep a blood pressure log at home and needs to follow up with his PCP so they can adjust these based on averages. Blood work here unremarkable. No acute neuro deficits. Headache is gone. Medical Records I reviewed the patient's medical records. Lab Data I reviewed the patient's lab results. 12/07/24 13:55 12/07/24 13:55 Laboratory Results WBC 7.42 10^3/uL (3.29-11.43) 12/07/24 13:55 RBC 4.48 10^6/uL (3.85-5.65) 12/07/24 13:55 Hgb 13.30 g/dL (11.27-16.99) 12/07/24 13:55 Hct 38.6 % (37-53) 12/07/24 13:55 MCV 86.2 fl (82-101) 12/07/24 13:55 MCH 29.7 pg (27-33) 12/07/24 13:55 MCHC 34.5 g/dL (30-55) 12/07/24 13:55 RDW 13.4 % (12.1-15.1) 12/07/24 13:55 Plt Count 316 10^3/cmm (157-399) 12/07/24 13:55 MPV 8.4 fL (7.4-10.4) 12/07/24 13:55 Neut % (Auto) 45.8 % 12/07/24 13:55 Lymph % (Auto) 43.9 % 12/07/24 13:55 [place] % (Auto) 7.3 % 12/07/24 13:55 Eos % (Auto) 2.0 % 12/07/24 13:55 Baso % (Auto) 0.7 % 12/07/24 13:55 Neut # (Auto) 3.40 10^3/uL (1.8-7.7) 12/07/24 13:55 Lymph # (Auto) 3.3 10^3/uL (0.8-4.8) 12/07/24 13:55 [place] # (Auto) 0.5 10^3/uL (0.2-0.9) 12/07/24 13:55 Eos # (Auto) 0.2 10^3/uL (0.0-0.8) 12/07/24 13:55 Baso # (Auto) 0.1 10^3/uL (0.0-0.1) 12/07/24 13:55 Nucleated RBC % (auto) 0 % 12/07/24 13:55 Nucleated RBCs # 0.0 /100WBC 12/07/24 13:55 Sodium 137 mmol/L (136-145) 12/07/24 13:55 Potassium 3.5 mmol/L (3.5-5.1) 12/07/24 13:55 Chloride 99 mmol/L (98-107) 12/07/24 13:55 Carbon Dioxide 25 mmol/L (22-29) 12/07/24 13:55 Anion Gap 16.5 (5-19) 12/07/24 13:55 BUN 22 mg/dL (8-23) 12/07/24 13:55 Creatinine 1.0 mg/dL (0.7-1.2) 12/07/24 13:55 GFR Calculation 75.2 mL/min (90-130) L 12/07/24 13:55 Glucose 210 mg/dL (65-115) H 12/07/24 13:55 Calculated Osmolality 294 mOsm/kg (285-295) 12/07/24 13:55 Calcium 8.9 mg/dL (8.5-10.5) 12/07/24 13:55 Total Bilirubin 0.6 mg/dL (0.15-1.2) 12/07/24 13:55 AST 21 U/L (0-40) 12/07/24 13:55 ALT 35 U/L (0-41) 12/07/24 13:55 Alkaline Phosphatase 91 U/L (40-130) 12/07/24 13:55 Total Protein 7.2 g/dL (6.6-8.7) 12/07/24 13:55 Albumin 4.3 g/dL (3.5-5.2) 12/07/24 13:55 Globulin 2.9 g/dL (1.3-4.6) 12/07/24 13:55 No radiology studies performed this visit Discharge Plan Discharge Patient Disposition: Home Clinical Impression: Hypertension Qualifiers: Hypertension type: unspecified Qualified Code(s): I10 - Essential (primary) hypertension Condition: Stable Prescriptions: No Action amlodipine 10 mg tablet 10 mg PO DAILY Qty: 90 2RF carvedilol [Coreg] 12.5 mg tablet 12.5 mg PO BID 90 Days Qty: 180 2RF Rx Instructions: must administer with a meal/food losartan 100 mg tablet 100 mg PO DAILY 90 Days Qty: 90 2RF insulin glargine [Basaglar KwikPen U-100 Insulin] 100 unit/mL (3 mL) insulin pen 25 unit SUBCUT QAM Qty: 15 2RF aspirin 81 mg Tablet,Chewable 81 mg PO DAILY glimepiride 1 mg tablet 3 mg PO DAILY Discharge Orders: Discharge ED (Routine); Ordered 12/07/24 Ordered By: Jasmin Hyman Referrals: Jose Davis MD [Primary Care Provider] - Patient Instructions: Hypertension, Chronic Hypertension (DC) Activity Restrictions/Additional Instructions: As we discussed, it is very important that you begin keeping a blood pressure log at home and monitoring blood pressure twice daily and keeping a journal of this to discuss with your primary care provider. Please schedule an appointment with them for roughly 2 weeks so they can go over this log/journal and adjust any blood pressure medications if needed. You need to return to the emergency department for onset of severe headache, chest pain, shortness of breath, difficulty breathing, weakness or loss of sensation to your arms or legs, facial drooping, slurred speech, or any other concerns you may have. Print Language: Bengali Coding Level of Care Code ED Traffic Operator for Sweta Alvarez
[2024-12-07 13:57] VITALS: BP 162/127; PULSE 76; RESP 16; O2SAT 97
[2024-12-07 14:01] LABS: Basophils # 0.1 10^3/uL (0.0-0.1); Basophils % 0.7 %; Eosinophils # 0.2 10^3/uL (0.0-0.8); Hematocrit 38.6 % (37-53); Lymphocytes # 3.3 10^3/uL (0.8-4.8); Lymphocytes % 43.9 %; Mean Corpuscular HGB Conc 34.5 g/dL (30-55); Mean Corpuscular Hemoglobin 29.7 pg (27-33); Mean Corpuscular Volume 86.2 fl (82-101); Mean Platelet Volume 8.4 fL (7.4-10.4); Monocytes # 0.5 10^3/uL (0.2-0.9); Monocytes % 7.3 %; Neutrophils % 45.8 %; Nucleated Red Blood Cells % 0 %; Platelet Count 316 10^3/cmm (157-399); Red Blood Count 4.48 10^6/uL (3.85-5.65); Red Cell Distribution Width 13.4 % (12.1-15.1); White Blood Count 7.42 10^3/uL (3.29-11.43)
[2024-12-07] MEDS: hyDRALAzine 20 mg/mL INJ 1 mL 10 MG IVP (14:12)
--- NOTE | 2024-12-07 14:12 | PC.PHAR ---
Pt states he is out of Amlodipine 10mg and Carvedilol 12.5mg. He has not picked the Clonidine 0.1mg up since it was ordered today.
[2024-12-07 14:21] LABS: Alanine Aminotransferase 35 U/L (0-41); Albumin Level 4.3 g/dL (3.5-5.2); Alkaline Phosphatase 91 U/L (40-130); Anion Gap 16.5 (5-19); Aspartate Amino Transferase 21 U/L (0-40); Blood Urea Nitrogen 22 mg/dL (8-23); Calcium 8.9 mg/dL (8.5-10.5); Carbon Dioxide 25 mmol/L (22-29); Chloride 99 mmol/L (98-107); Creatinine Clr Calc Pharmacy 87.7171; Globulin 2.9 g/dL (1.3-4.6); Glomerular Filtration Rate 75.2 mL/min (90-130); Glucose 210 mg/dL (65-115); Osmolality Calculated 294 mOsm/kg (285-295); Potassium 3.5 mmol/L (3.5-5.1); Sodium 137 mmol/L (136-145); Total Bilirubin 0.6 mg/dL (0.15-1.2); Total Protein 7.2 g/dL (6.6-8.7)
[2024-12-07 14:22] VITALS: BP 122/81; PULSE 78
[2024-12-07 14:37] VITALS: BP 122/81
[2024-12-07 14:52] LABS: Bacteria Urine None Seen /hpf; Hyaline Casts Urine 0-4 /lpf; RBC Urine 0-2 /hpf (0-2); Squamous Epithelial Cell Urine 0-5 /hpf (0-5); WBC Urine 0-5 /hpf (0-5)
[2024-12-07 15:00] LABS: Glucose Urine UA 2+ (Normal); Protein Urine 1+ (Negative); Specific Gravity, Urine 1.015 (1.005-1.030); Urine Appearance Clear (CLEAR); Urine Color Yellow (Yellow); pH Urine 6 (5-7)
[2024-12-07 15:01] LABS: Add Urine Microscopic? YES; Bilirubin Urine Neg (Negative); Blood Urine Neg (Negative); Ketones Urine Negative (Negative); Leukocyte Esterase Urine Negative (Negative); Nitrate Urine Negative (Negative); Urobilinogen Urine Norm (Negative)
[2024-12-07 15:23] VITALS: BP 133/79; PULSE 74; O2SAT 96
== END 2024-12-07 15:24 | disposition home or self-care (01) ==
PROVIDERS: Emergency Provider Physician Assistant; PCP Family Medicine
DX: I10 Essential (primary) hypertension (principal); Z79.4 Long term (current) use of insulin; Z79.82 Long term (current) use of aspirin; E11.42 Type 2 diabetes mellitus with diabetic polyneuropathy
CPT/HCPCS: 80053; 81001; 85025; 96374; 99284; J0360

== ENCOUNTER → 2025-01-06 09:30 | Outpatient (BNVA) | payer OTHER, MEDICARE, SELFPAY | PROVIDERS: PCP Family Medicine; Visit Provider Family Medicine | DX: I10 Essential (primary) hypertension (principal); R21 Rash and other nonspecific skin eruption; L30.9 Dermatitis, unspecified; E11.9 Type 2 diabetes mellitus without complications | CPT/HCPCS: 81000; 82043; 82088; 82533; 83036; 84244; 84439; 84443 ==

== ENCOUNTER → 2025-02-09 16:48 | Outpatient (BNVA) | payer OTHER, SELFPAY | PROVIDERS: PCP Family Medicine; Visit Provider Family Medicine | DX: M94.0 Chondrocostal junction syndrome [Tietze] (principal); I10 Essential (primary) hypertension | CPT/HCPCS: 80048 ==

== ENCOUNTER 2025-03-07 06:02 | Emergency (ER) | payer OTHER, SELFPAY ==
[2025-03-07] VITALS (10 sets, daily range): BP systolic 159–226; BP diastolic 101–135; PULSE 85–102; RESP 18; TEMP 36.3; O2SAT 94–97; BMI 29.2
--- NOTE | 2025-03-07 06:24 | ECG_ITS ---
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
[2025-03-07 06:35] LABS: Hematocrit 41.0 % (37-53); Hemoglobin 14.70 g/dL (11.27-16.99); Mean Corpuscular HGB Conc 35.9 g/dL (30-55); Mean Corpuscular Hemoglobin 29.3 pg (27-33); Mean Corpuscular Volume 81.8 fl (82-101); Nucleated Red Blood Cells % 0 %; Platelet Count 367 10^3/cmm (157-399); Red Blood Count 5.01 10^6/uL (3.85-5.65); White Blood Count 9.54 10^3/uL (3.29-11.43)
--- NOTE | 2025-03-07 06:37 | ECG_ITS ---
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
--- NOTE | 2025-03-07 06:37 | XRR_ITS ---
PROCEDURE INFORMATION: Exam: XR Chest Exam date and time: 03/07/2025 7:00 AM Age: 64 years old Clinical indication: Cough and dyspnea; Additional info: Dyspnea/cough TECHNIQUE: Imaging protocol: Radiologic exam of the chest. Views: 1 view. COMPARISON: CT abdomen pelvis w con* [id number] 12/05/2021 8:05 AM FINDINGS: Lungs: No consolidation. Low lung volumes with bronchovascular crowding. Pleural spaces: No sizable pleural effusion or pneumothorax. Heart/Mediastinum: No cardiomegaly. Bones/joints: Unremarkable. XR/XR chest 1V portable [id number] IMPRESSION: No acute intrathoracic findings.
--- NOTE | 2025-03-07 06:43 | ED_ITS ---
HPI - Abdominal Pain 2 General: Chief Complaint: Abdominal Pain Stated Complaint: upper abd pain into flank Time Seen by Provider: 03/07/25 06:13 History of Present Illness: 64-year-old male presents emergency room complaining of upper abdominal pain radiated to the left flank began overnight. No rash denies nausea vomiting or diarrhea no dysuria urgency or frequency. Associated Symptoms: Denies chills, dysuria and fever(s) Related Data Home Medications ?Medication ?Instructions ?Recorded ?Confirmed aspirin 81 mg chewable tablet 81 mg PO DAILY 07/19/20 03/09/25 glimepiride 1 mg tablet 3 mg PO DAILY 12/07/2403/09 Previous Rx's ?Medication ?Instructions ?Recorded amlodipine 10 mg tablet 10 mg PO DAILY #90 tabs 12/01 losartan 100 mg tablet 100 mg PO DAILY 3 months #90 tabs 12/10/24 carvedilol 25 mg tablet 25 mg PO BID 3 months #180 t abs 01/06/25 lidocaine 4 % topical patch 1 patch topical DAILY PRN pain #15 01/06/25 (Salonpas (lidocaine)) ea insulin glargine 100 unit/mL (3 40 unit (0.4 mL) SUBCU T QAM #15 mL 01/07/25 mL) subcutaneous pen (Basaglar KwikPen U-100 Insulin) diclofenac sodium 1 % topical gel 4 g topical QID #50 grams 02/09/25 (Voltaren Arthritis Pain) hydrochlorothiazide 50 mg tablet 50 mg PO QAM #90 tabs 02/09/25 tramadol 50 mg tablet 50 mg PO Q6H PRN pain #10 ta bs 03/07/25 hydralazine 25 mg tablet 25 mg PO TID #90 tabs potassium chloride 20 mEq 20 meq PO DAILY #90 tabs 04/26 tablet,extended release (K-Tab) Allergies Allergy/AdvReac Type Severity Reaction Status Date / Time berries Allergy ALGY-Rash Uncoded 03/09/25 09:49 Review of Systems 2 Const: Denies: fever(s) or chills Card: Denies: chest pain Resp: Denies: dyspnea GI: Denies: abdominal pain : Denies: dysuria, urinary frequency or urinary urgency Musc: Denies: neck pain or back pain Skin/Breast: Denies: rash PFSH ED 2 PFSH: Medical History Diabetic peripheral neuropathy associated with type 2 diabetes mellitus Abscess of right foot Diabetic foot ulcer Hypertension Diabetes Social History Smoking and tobacco/nicotine status: never used tobacco/nicotine Physical Exam 2 Const: COMMON NORMALS: no acute distress GENERAL APPEARANCE: cooperative and comfortable ORIENTATION/CONSCIOUSNESS: Yes awake, Yes oriented to person, Yes oriented to place and Yes oriented to time HENMT: COMMON NORMALS: normocephalic, atraumatic and hearing grossly normal bilaterally HEAD & SCALP: normocephalic and atraumatic Resp: COMMON NORMALS: normal respiratory effort, No retractions, No use of accessory muscles and clear to auscultation bilaterally AUSCULTATION: clear to auscultation bilaterally Cardio: COMMON NORMALS: regular rate, regular rhythm and No murmurs present (Cardio) RATE: regular rate RHYTHM: regular rhythm GI: COMMON NORMALS: Soft to palpation and No hepatosplenomegaly present A USCULTATION: Yes normoactive bowel sounds PALPATION: Yes Soft to palpation, No Tenderness to palpation present (GI), No Guarding due to palpation present (GI) and Yes No hepatosplenomegaly present Extremity: COMMON NORMALS: normal to inspection, capillary refill normal, no clubbing, cyanosis or edema, no calf tenderness and no pedal edema Neuro: SENSORIUM/ORIENTATION: Yes oriented to person, Yes oriented to place and Yes oriented to time Skin: COMMON NORMALS: no rashes or lesions noted GENERAL SKIN EXAM: no rashes or lesions noted Course 2 Vital Signs: Vital signs: Vital Signs Temperature 97.4 F L 03/07/25 06:07 Pulse Rate 99 03/07/25 10:42 Respiratory Rate 18 03/07/25 06:30 Blood Pressure 159/101 03/07/25 10:42 Pulse Oximetry 95 03/07/25 10:42 Oxygen Delivery Me thod Room Air 03/07/25 07:32 MDM - Abdominal Pain Medical Decision Making Labs and imaging reviewed. No clinically significant finding no leukocytosis lipase is slightly high but he has no pain in the left upper quadrant. LFTs and T. bili are normal. His symptoms have improved. Cardiac enzymes trending negative EKG does not show any acute changes. Chest x-ray also unremarkable. Patient is feeling somewhat better pain is reproducible with palpation and with movement on that side have patient follow-up with primary care anti- inflammatories Tylenol as needed. Lab Data 03/07/25 06:22 03/07/25 06:22 Labs/Radiology: Radiology Impressions Chest X-Ray 03/07/25 06:37 IMPRESSION: No acute intrathoracic findings. Laboratory Results WBC 9.54 10^3/uL (3.29-11.43) 03/07/25 06:22 RBC 5.01 10^6/uL (3.85-5.65) 03/07/25 06:22 Hgb 14.70 g/dL (11.27-16.99) 03/07/25 06:22 Hct 41.0 % (37-53) 03/07/25 06:22 MCV 81.8 fl (82-101) L 03/07/25 06:22 MCH 29.3 pg (27-33) 03/07/25 06:22 MCHC 35.9 g/dL (30-55) 03/07/25 06:22 RDW 12.0 % (12.1-15.1) L 03/07/25 06:22 Plt Count 367 10^3/cmm (157-399) 03/07/25 06:22 MPV 9.0 fL (7.4-10.4) 03/07/25 06:22 Neut % (Auto) 41.2 % 03/07/25 06:22 Lymph % (Auto) 50.1 % 03/07/25 06:22 [place] % (Auto) 6.1 % 03/07/25 06:22 Eos % (Auto) 1.4 % 03/07/25 06:22 Baso % (Auto) 0.9 % 03/07/25 06:22 Neut # (Auto) 3.93 10^3/uL (1.8-7.7) 03/07/25 06:22 Lymph # (Auto) 4.8 10^3/uL (0.8-4.8) 03/07/25 06:22 [place] # (Auto) 0.6 10^3/uL (0.2-0.9) 03/07/25 06:22 Eos # (Auto) 0.1 10^3/uL (0.0-0.8) 03/07/25 06:22 Baso # (Auto) 0.1 10^3/uL (0.0-0.1) 03/07/25 06:22 Nucleated RBC % (auto) 0 % 03/07/25 06:22 Nucleated RBCs # 0.0 /100WBC 03/07/25 06:22 Sodium 138 mmol/L (136-145) 03/07/25 06:22 Potassium 3.3 mmol/L (3.5-5.1) L 03/07/25 06:22 Chloride 96 mmol/L (98-107) L 03/07/25 06:22 Carbon Dioxide 24 mmol/L (22-29) 03/07/25 06:22 Anion Gap 21.3 (5-19) H 03/07/25 06:22 BUN 28 mg/dL (8-23) H 03/07/25 06:22 Creatinine 1.3 mg/dL (0.7-1.2) H 03/07/25 06:22 GFR Calculation 55.6 mL/min (90-130) L 03/07/25 06:22 Glucose 220 mg/dL (65-115) H 03/07/25 06:22 Calculated Osmolality 298 mOsm/kg (285-295) H 03/07/25 06:22 Calcium 9.4 mg/dL (8.5-10.5) 03/07/25 06:22 Total Bilirubin 0.4 mg/dL (0.15-1.2) 03/07/25 06:22 AST 28 U/L (0-40) 03/07/25 06:22 ALT 36 U/L (0-41) 03/07/25 06:22 Alkaline Phosphatase 99 U/L (40-130) 03/07/25 06:22 Troponin T Baseline 27 ng/L (0-15) H 03/07/25 06:22 Troponin T 120 Minute 23.29 ng/L (0-15) H 03/07/25 08:22 Delta Troponin T -3.71 ABS# (0-10) L 03/07/25 08:22 C-Reactive Protein 3.1 mg/L (0.0-4.9) 03/07/25 06:22 Total Protein 7.7 g/dL (6.6-8.7) 03/07/25 06:22 Albumin 4.2 g/dL (3.5-5.2) 03/07/25 06:22 Globulin 3.5 g/dL (1.3-4.6) 03/07/25 06:22 Lipase 78 U/L (13-60) H 03/07/25 06:22 Urine Color Yellow (Yellow) 03/07/25 08:23 Urine Appearance Clear (CLEAR) 03/07/25 08:23 Urine pH 6.0 (5-7) 03/07/25 08:23 Ur Specific [place] 1.021 (1.005-1.030) 03/07/25 08:23 Urine Protein 1+ (Negative) A 03/07/25 08:23 Urine Glucose (UA) 3+ (Normal) H 03/07/25 08:23 Urine Ketones Negative (Negative) 03/07/25 08:23 Urine Blood Negative (Negative) 03/07/25 08:23 Urine Nitrate Negative (Negative) 03/07/25 08:23 Urine Bilirubin Negative (Negative) 03/07/25 08:23 Urine Urobilinogen 1.0 mg/dL (Negative) 03/07/25 08:23 Ur Leukocyte Esterase Negative (Negative) 03/07/25 08:23 Urine RBC 0-2 /hpf (0-2) 03/07/25 08:23 Urine WBC 0-5 /hpf (0-5) 03/07/25 08:23 Ur Squamous Epith Cells 0-5 /hpf (0-5) 03/07/25 08:23 Amorphous Sediment Not Reportable 03/07/25 06:20 Urine Bacteria None seen /hpf (NONE) 03/07/25 08:23 Hyaline Casts 0.40 /lpf 03/07/25 08:23 All radiology interpretation(s) finalized by discharge Discharge Plan Discharge Patient Disposition: Home Clinical Impression: Rib pain on right side Hypertension Qualifiers: Hypertension type: unspecified Qualified Code(s): I10 - Essential (primary) hypertension Condition: Stable Prescriptions: New tramadol 50 mg tablet 50 mg PO Q6H PRN (Reason: pain) Qty: 10 0RF No Action diclofenac sodium [Voltaren Arthritis Pain] 1 % gel 4 g topical QID Qty: 50 1RF Rx Instructions: apply to single knee, ankle, foot; for foot includes sole/toes/top of foot hydrochlorothiazide 50 mg tablet 50 mg PO QAM Qty: 90 1RF amlodipine 10 mg tablet 10 mg PO DAILY Qty: 90 2RF losartan 100 mg tablet 100 mg PO DAILY 90 Days Qty: 90 2RF carvedilol 25 mg tablet 25 mg PO BID 90 Days Qty: 180 2RF Rx Instructions: must administer with a meal/food lidocaine [Salonpas (lidocaine)] 4 % adhesive patch,medicated 1 patch topical DAILY PRN (Reason: pain) Qty: 15 0RF hydralazine 25 mg tablet 25 mg PO TID Qty: 90 1RF potassium chloride [K-Tab] 20 mEq tablet extended release 20 meq PO DAILY Qty: 90 1RF insulin glargine [Basaglar KwikPen U-100 Insulin] 100 unit/mL (3 mL) insulin pen 40 unit SUBCUT QAM Qty: 15 4RF aspirin 81 mg Tablet,Chewable 81 mg PO DAILY glimepiride 1 mg tablet 3 mg PO DAILY Discharge Orders: Discharge ED (Routine); Ordered 03/07/25 Ordered By: Tutu Le Referrals: Jose Davis MD [Primary Care Provider, Family Practice] Discharge Diet: Usual diet Discharge Activity: Resume usual activity Patient Instructions: Opioid Safety, Pain Management, Patient Portal & Samir Instructions Activity Restrictions/Additional Instructions: Thank you for choosing [facility] for your healthcare needs today. It is very important that you follow up as instructed or that you return to the Emergency Department should you have concerns or if your condition changes or worsens in any way. You were seen in the emergency room with back and abdominal pain. Your white count was normal your other laboratory test did not show any clinically significant abnormalities. Did have a very mild bump in your creatinine we gave some IV fluids for this her blood pressure was elevated and we gave you several blood pressure medicines including all of your regular home medicines this morning. Finally you were very mildly hypokalemic we gave you potassium supplement. You are given medication for your back pain. Print Language: Turkish Coding Level of Care Code ED Lime Slaker for Sweta Alvarez
[2025-03-07 06:53] LABS: Alanine Aminotransferase 36 U/L (0-41); Albumin Level 4.2 g/dL (3.5-5.2); Alkaline Phosphatase 99 U/L (40-130); Aspartate Amino Transferase 28 U/L (0-40); Blood Urea Nitrogen 28 mg/dL (8-23); Calcium 9.4 mg/dL (8.5-10.5); Carbon Dioxide 24 mmol/L (22-29); Chloride 96 mmol/L (98-107); Creatinine Clr Calc Pharmacy 67.6218; Globulin 3.5 g/dL (1.3-4.6); Glucose 220 mg/dL (65-115); Lipase 78 U/L (13-60); Osmolality Calculated 298 mOsm/kg (285-295); Sodium 138 mmol/L (136-145); Total Protein 7.7 g/dL (6.6-8.7)
[2025-03-07 06:54] LABS: Anion Gap 21.3 (5-19); Potassium 3.3 mmol/L (3.5-5.1)
[2025-03-07 07:07] LABS: Troponin(5th) Baseline 27 ng/L (0-15)
[2025-03-07] MEDS: hyDRALAzine 20 mg/mL INJ 1 mL 10 MG IVP ×3 (07:14→09:53)
[2025-03-07] MEDS: labetalol 5 mg/mL SDV 20mL 10 MG IVP (07:15)
[2025-03-07 08:32] LABS: Glucose Urine UA 3+ (Normal); Nitrate Urine Negative (Negative); Specific Gravity, Urine 1.021 (1.005-1.030)
[2025-03-07 08:37] LABS: Add Urine Microscopic? YES
[2025-03-07 08:45] LABS: Troponin 5 2HR 23.29 ng/L (0-15)
[2025-03-07 08:47] LABS: Troponin 5 2HR Delta -3.71 ABS# (0-10)
--- NOTE | 2025-03-07 08:54 | ECG_ITS ---
[facility]: [facility]25[facility]07 Pat Name: Prashant Dangelo Department: Room: Gender: Male Immigration Coordinator: : 1960 Requested By: Tutu Delgado Order Number: [id number] Reading MD: Measurements Intervals [place] Rate: 99 P: 73 CO: 201 QRS: 48 QRSD: 110 T: 69 QT: 368 QTc: 473 Interpretive Statements SINUS RHYTHM MINIMAL ST DEPRESSION [0.025+ mV ST DEPRESSION] INTERPRETATION BASED ON A DEFAULT AGE OF 40 YEARS Compared to ECG 03/07/2025 07:30:00 Intraventricular conduction delay no longer present ST (T wave) deviation still present [id number]
[2025-03-07] MEDS: metoprolol tartrate 1 mg/1 mL SDV 5 mL 2.5 MG IVP (09:54)
[2025-03-07] MEDS: potassium chloride oral liq 20 mEq/15 mL UDC 40 MEQ PO (09:55)
== END 2025-03-07 10:44 | disposition home or self-care (01) ==
PROVIDERS: Emergency Medicine; Emergency Provider Family Medicine; PCP Family Medicine
DX: R07.81 Pleurodynia (principal); I10 Essential (primary) hypertension; Z79.4 Long term (current) use of insulin; Z79.82 Long term (current) use of aspirin; E11.42 Type 2 diabetes mellitus with diabetic polyneuropathy
CPT/HCPCS: 36415; 71045; 80053; 81001; 83690; 84484; 85025; 86140; 93005; 93010; 96374; 96375; 96376; 99285; J0360; J3490; J7030; J9999

== ENCOUNTER 2025-03-14 02:47 | Emergency (ER) | payer MEDICARE, OTHER, SELFPAY ==
[2025-03-14 03:03] VITALS: BP 212/138; PULSE 98; RESP 20; TEMP 36.9; O2SAT 96; BMI 29.2
[2025-03-14 03:25] LABS: Hematocrit 44.1 % (37-53); Hemoglobin 15.40 g/dL (11.27-16.99); Mean Corpuscular HGB Conc 34.9 g/dL (30-55); Mean Corpuscular Hemoglobin 29.3 pg (27-33); Mean Corpuscular Volume 83.8 fl (82-101); Nucleated Red Blood Cells % 0 %; Platelet Count 390 10^3/cmm (157-399); Red Blood Count 5.26 10^6/uL (3.85-5.65); White Blood Count 10.52 10^3/uL (3.29-11.43)
[2025-03-14] MEDS: labetalol 5 mg/mL SDV 20mL 20 MG IVP (03:29)
[2025-03-14 03:46] LABS: Alanine Aminotransferase 32 U/L (0-41); Albumin Level 4.5 g/dL (3.5-5.2); Alkaline Phosphatase 101 U/L (40-130); Anion Gap 18.3 (5-19); Aspartate Amino Transferase 22 U/L (0-40); Blood Urea Nitrogen 29 mg/dL (8-23); Calcium 10.3 mg/dL (8.5-10.5); Carbon Dioxide 29 mmol/L (22-29); Chloride 94 mmol/L (98-107); Creatinine Clr Calc Pharmacy 61.9655; Globulin 3.8 g/dL (1.3-4.6); Glucose 180 mg/dL (65-115); Lipase 57 U/L (13-60); Osmolality Calculated 296 mOsm/kg (285-295); Potassium 3.3 mmol/L (3.5-5.1); Sodium 138 mmol/L (136-145); Total Protein 8.3 g/dL (6.6-8.7)
[2025-03-14 03:47] LABS: Lactic Sepsis W/Reflex 1.8 mmol/L (0.5-2.2)
--- NOTE | 2025-03-14 03:49 | CTR_ITS ---
PROCEDURE INFORMATION: Exam: CT Abdomen And Pelvis With Contrast Exam date and time: 03/14/2025 4:09 AM Age: 65 years old Clinical indication: Abdominal pain; Localized; Left upper quadrant (luq); Prior surgery; Surgery date: 6+ months; Surgery type: Gb; C/O luq pain TECHNIQUE: Imaging protocol: Computed tomography of the abdomen and pelvis with contrast. Radiation optimization: All CT scans at this facility use at least one of these dose optimization techniques: automated exposure control; mA and/or kV adjustment per patient size (includes targeted exams where dose is matched to clinical indication); or iterative reconstruction. Contrast material: OMNI 350; Contrast volume: 100 ml; Contrast route: INTRAVENOUS (IV); COMPARISON: CT abdomen pelvis w con* [id number] 12/05/2021 8:05 AM RADIATION DOSE METRICS: Total DLP (mGy-cm): 994.25 FINDINGS: Diaphragm: There is a small hiatal hernia. Liver: Mild hepatic steatosis noted. Gallbladder and biliary ducts: There has been cholecystectomy. Pancreas: Normal. No ductal dilation. Spleen: Normal. No splenomegaly. Adrenal glands: Normal. No mass. Kidneys and ureters: Normal. No hydronephrosis. Stomach and bowel: There is a short-segment area of mild circumferential thickening of the sigmoid colon series 5, image 34. This most likely is related to peristalsis. Colonic mucosal lesion not entirely excluded. Appendix: No evidence of appendicitis. Intraperitoneal space: Unremarkable. No free air. No significant fluid collection. Vasculature: Unremarkable. No abdominal aortic aneurysm. Lymph nodes: Unremarkable. No enlarged lymph nodes. Urinary bladder: Moderate urinary bladder wall thickening may represent cystitis. Please correlate clinically. Bladder mildly distended Reproductive: Unremarkable as visualized. Bones/joints: Unremarkable. No acute fracture. Soft tissues: Unremarkable. CT/CT abdomen pelvis w con* [id number] IMPRESSION: 1. Moderate urinary bladder wall thickening may represent cystitis. Please correlate clinically. 2. There is a short-segment area of mild circumferential thickening of the sigmoid colon series 5, image 34. This most likely is related to peristalsis. Colonic mucosal lesion not entirely excluded. Recommend interval follow-up or colonoscopy for further evaluation.
--- NOTE | 2025-03-14 03:54 | W.ED.BACK ---
HPI - Back Pain/Injury General: Chief Complaint: Back Pain/Injury Stated Complaint: upper R abd pain and left flank/side Time Seen by Provider: 03/14/25 03:13 History of Present Illness: 65-year-old hypertensive male seen last week for epigastric pain. He presents with left flank, left upper quadrant, and right upper quadrant discomfort. He says this discomfort is similar to the pain he was having prior. The pain he was having prior never fully went away. He has been taking Tylenol and tramadol with minimal relief here and there. He denies fever or vomiting. He has not had any diarrhea. He has a history of cholecystectomy. No dysuria. No hematuria. No shortness of breath. No chest discomfort. Related Data Home Medications ?Medication ?Instructions ?Recorded ?Confirmed aspirin 81 mg chewable tablet 81 mg PO DAILY 07/19/20 03/09/25 glimepiride 1 mg tablet 3 mg PO DAILY 12/07/24 03/09/25 Previous Rx's ?Medication ?Instructions ?Recorded amlodipine 10 mg tablet 10 mg PO DAILY #90 tabs 12/10/24 losartan 100 mg tablet 100 mg PO DAILY 3 months #90 tabs 12/10/24 carvedilol 25 mg tablet 25 mg PO BID 3 months #180 tabs 01/06/25 lidocaine 4 % topical patch 1 patch topical DAILY PRN pain #15 01/06/25 (Salonpas (lidocaine)) ea insulin glargine 100 unit/mL (3 40 unit (0.4 mL) SUBCUT QAM #15 mL 01/07/25 mL) subcutaneous pen (Basaglar KwikPen U-100 Insulin) diclofenac sodium 1 % topical gel 4 g topical QID #50 grams 02/09/25 (Voltaren Arthritis Pain) hydrochlorothiazide 50 mg tablet 50 mg PO QAM #90 tabs 02/09/25 hydralazine 25 mg tablet 25 mg PO TID #90 tabs 03/09/25 potassium chloride 20 mEq 20 meq PO DAILY #90 tabs 03/09/25 tablet,extended release (K-Tab) hydrocodone 5 mg-acetaminophen 325 1 tab PO Q8H PRN pain #7 tabs 03/14/25 mg tablet Allergies Allergy/AdvReac Type Severity Reaction Status Date / Time berries Allergy ALGY-Rash Uncoded 03/09/25 09:49 PFSH ED PFSH: Medical History (Updated 03/14/25 @ 06:06 by Anthony García DO) Diabetic peripheral neuropathy associated with type 2 diabetes mellitus Abscess of right foot Diabetic foot ulcer Hypertension Diabetes Social History Smoking and tobacco/nicotine status: never used tobacco/nicotine Physical Exam Const: COMMON NORMALS: no acute distress GENERAL APPEARANCE: cooperative; not ill appearing and not frail appearing HENMT: COMMON NORMALS: normocephalic, atraumatic and Normal external nose present HEAD & SCALP: normocephalic and atraumatic FACE & SINUS: normal facial exam and face symmetric NOSE: Normal external nose present Eye: COMMON NORMALS: Equal, round and reactive pupils present and EOMs intact bilaterally PUPIL: Yes Equal, round and reactive pupils present Neck/C-Spine: GENERAL: Yes trachea midline Chest: CHEST: Yes Symmetrical chest wall rise Resp: COMMON NORMALS: normal respiratory effort, No retractions, No use of accessory muscles and clear to auscultation bilaterally AUSCULTATION: clear to auscultation bilaterally Cardio: COMMON NORMALS: regular rate and regular rhythm RATE: regular rate RHYTHM: regular rhythm GI: COMMON NORMALS: Normal to inspection, nondistended, normoactive bowel sounds present PALPATION: Yes Tenderness to palpation present (GI) Details: LUQ : BLADDER/KIDNEY EXAM: Yes CVA tenderness on the left Back/Pelvis: GENERAL BACK: Yes CVA tenderness Extremity: COMMON NORMALS: no pedal edema Neuro: IZABEL COMA SCALE: document GCS findings [place] coma scale eye opening: Spontaneous [place] coma scale verbal response: Orientated [place] coma scale motor response: Obey commands Izabel coma scale total score: 15 SENSORY EXAM: Yes extremities (intact) Psych: COMMON NORMALS: speech normal SPEECH: Yes normal speech Skin: COMMON NORMALS: no rashes or lesions noted GENERAL SKIN EXAM: no rashes or lesions noted Course Vital Signs: Vital signs: Vital Signs Temperature 98.4 F 03/14/25 03:03 Pulse Rate 86 03/14/25 05:28 Respiratory Rate 16 03/14/25 05:28 Blood Pressure 156/105 03/14/25 05:28 Pulse Oximetry 95 03/14/25 05:28 MDM - Back Pain/Injury Medical Decision Making Pain is reproducible on palpation of left upper quadrant, and left CVA percussion. His creatinine is 1.4. His potassium is 3.3. His CRP is 3. His lipase is back down to normal at 57. His CBC is normal. CT is pending. He is very hypertensive on arrival. Blood pressure now 184/124 after administration of labetalol. He also got enalaprilat and amlodipine. Suspect noncompliance with his blood pressure medicine given his prescription filling history. CT scan is grossly negative for acute change. Pain is reproducible. His blood pressure is much better. He will be discharged home Labs 03/14/25 03:05 03/14/25 03:05 Radiology Impressions Abdomen/Pelvis CT 03/14/25 03:49 IMPRESSION: 1. Moderate urinary bladder wall thickening may represent cystitis. Please correlate clinically. 2. There is a short-segment area of mild circumferential thickening of the sigmoid colon series 5, image 34. This most likely is related to peristalsis. Colonic mucosal lesion not entirely excluded. Recommend interval follow-up or colonoscopy for further evaluation. Laboratory Results WBC 10.52 10^3/uL (3.29-11.43) 03/14/25 03:05 RBC 5.26 10^6/uL (3.85-5.65) 03/14/25 03:05 Hgb 15.40 g/dL (11.27-16.99) 03/14/25 03:05 Hct 44.1 % (37-53) 03/14/25 03:05 MCV 83.8 fl (82-101) 03/14/25 03:05 MCH 29.3 pg (27-33) 03/14/25 03:05 MCHC 34.9 g/dL (30-55) 03/14/25 03:05 RDW 12.3 % (12.1-15.1) 03/14/25 03:05 Plt Count 390 10^3/cmm (157-399) 03/14/25 03:05 MPV 8.7 fL (7.4-10.4) 03/14/25 03:05 Neut % (Auto) 44.2 % 03/14/25 03:05 Lymph % (Auto) 46.1 % 03/14/25 03:05 [place] % (Auto) 7.0 % 03/14/25 03:05 Eos % (Auto) 1.4 % 03/14/25 03:05 Baso % (Auto) 1.0 % 03/14/25 03:05 Neut # (Auto) 4.65 10^3/uL (1.8-7.7) 03/14/25 03:05 Lymph # (Auto) 4.9 10^3/uL (0.8-4.8) H 03/14/25 03:05 [place] # (Auto) 0.7 10^3/uL (0.2-0.9) 03/14/25 03:05 Eos # (Auto) 0.2 10^3/uL (0.0-0.8) 03/14/25 03:05 Baso # (Auto) 0.1 10^3/uL (0.0-0.1) 03/14/25 03:05 Nucleated RBC % (auto) 0 % 03/14/25 03:05 Nucleated RBCs # 0.0 /100WBC 03/14/25 03:05 Sodium 138 mmol/L (136-145) 03/14/25 03:05 Potassium 3.3 mmol/L (3.5-5.1) L 03/14/25 03:05 Chloride 94 mmol/L (98-107) L 03/14/25 03:05 Carbon Dioxide 29 mmol/L (22-29) 03/14/25 03:05 Anion Gap 18.3 (5-19) 03/14/25 03:05 BUN 29 mg/dL (8-23) H 03/14/25 03:05 Creatinine 1.4 mg/dL (0.7-1.2) H 03/14/25 03:05 GFR Calculation 50.9 mL/min (90-130) L 03/14/25 03:05 Glucose 180 mg/dL (65-115) H 03/14/25 03:05 Calculated Osmolality 296 mOsm/kg (285-295) H 03/14/25 03:05 Lactic Acid 1.8 mmol/L (0.5-2.2) 03/14/25 03:05 Calcium 10.3 mg/dL (8.5-10.5) 03/14/25 03:05 Total Bilirubin 0.7 mg/dL (0.15-1.2) 03/14/25 03:05 AST 22 U/L (0-40) 03/14/25 03:05 ALT 32 U/L (0-41) 03/14/25 03:05 Alkaline Phosphatase 101 U/L (40-130) 03/14/25 03:05 C-Reactive Protein 3.0 mg/L (0.0-4.9) 03/14/25 03:05 Total Protein 8.3 g/dL (6.6-8.7) 03/14/25 03:05 Albumin 4.5 g/dL (3.5-5.2) 03/14/25 03:05 Globulin 3.8 g/dL (1.3-4.6) 03/14/25 03:05 Lipase 57 U/L (13-60) 03/14/25 03:05 Urine Color Yellow (Yellow) 03/14/25 04:05 Urine Appearance Clear (CLEAR) 03/14/25 04:05 Urine pH 6.0 (5-7) 03/14/25 04:05 Ur Specific [place] 1.023 (1.005-1.030) 03/14/25 04:05 Urine Protein 1+ (Negative) A 03/14/25 04:05 Urine Glucose (UA) 1+ (Normal) H 03/14/25 04:05 Urine Ketones Negative (Negative) 03/14/25 04:05 Urine Blood Negative (Negative) 03/14/25 04:05 Urine Nitrate Negative (Negative) 03/14/25 04:05 Urine Bilirubin Negative (Negative) 03/14/25 04:05 Urine Urobilinogen 1.0 mg/dL (Negative) 03/14/25 04:05 Ur Leukocyte Esterase Negative (Negative) 03/14/25 04:05 Urine RBC 0-2 /hpf (0-2) 03/14/25 04:05 Urine WBC 0-5 /hpf (0-5) 03/14/25 04:05 Ur Squamous Epith Cells 0-5 /hpf (0-5) 03/14/25 04:05 Amorphous Sediment Not Reportable 03/14/25 04:05 Urine Bacteria None seen /hpf (NONE) 03/14/25 04:05 Hyaline Casts 0.81 /lpf 03/14/25 04:05 All radiology interpretation(s) finalized by discharge Discharge Plan Discharge Patient Disposition: Home Clinical Impression: Abdominal pain Qualifiers: Abdominal location: left upper quadrant Qualified Code(s): R10.12 - Left upper quadrant pain Condition: Stable Prescriptions: New hydrocodone-acetaminophen 5-325 mg tablet 1 tab PO Q8H PRN (Reason: pain) Qty: 7 0RF Discontinued tramadol 50 mg tablet 50 mg PO Q6H PRN (Reason: pain) Qty: 10 0RF No Action diclofenac sodium [Voltaren Arthritis Pain] 1 % gel 4 g topical QID Qty: 50 1RF Rx Instructions: apply to single knee, ankle, foot; for foot includes sole/toes/top of foot hydrochlorothiazide 50 mg tablet 50 mg PO QAM Qty: 90 1RF amlodipine 10 mg tablet 10 mg PO DAILY Qty: 90 2RF losartan 100 mg tablet 100 mg PO DAILY 90 Days Qty: 90 2RF carvedilol 25 mg tablet 25 mg PO BID 90 Days Qty: 180 2RF Rx Instructions: must administer with a meal/food lidocaine [Salonpas (lidocaine)] 4 % adhesive patch,medicated 1 patch topical DAILY PRN (Reason: pain) Qty: 15 0RF hydralazine 25 mg tablet 25 mg PO TID Qty: 90 1RF potassium chloride [K-Tab] 20 mEq tablet extended release 20 meq PO DAILY Qty: 90 1RF insulin glargine [Basaglar KwikPen U-100 Insulin] 100 unit/mL (3 mL) insulin pen 40 unit SUBCUT QAM Qty: 15 4RF aspirin 81 mg Tablet,Chewable 81 mg PO DAILY glimepiride 1 mg tablet 3 mg PO DAILY Discharge Orders: Discharge ED (Routine); Ordered 03/14/25 Ordered By: Anthony García Referrals: Jose Davis MD [Primary Care Provider, Family Practice] - 1-3 days Patient Instructions: Abdominal Pain (ED), Opioid Safety, Pain Management, Patient Portal & Samir Instructions Activity Restrictions/Additional Instructions: Imaging did not reveal a cause of your abdominal pain. Your abdominal pain could be related to your significantly high blood pressure. Take your blood pressure twice daily at home. Pressures greater than 150/90 should be treated. Call your doctor tomorrow for follow-up appointment. Print Language: Danish Coding Level of Care Code ED Small Business Sales Representative for Sweta Alvarez
[2025-03-14 04:02] VITALS: RESP 16
[2025-03-14] MEDS: morphine 4 mg/mL SDV 1 mL IVP (04:02)
[2025-03-14] MEDS: ondansetron 2 mg/ML SDV 2 mL 4 MG IVP (04:02)
[2025-03-14] MEDS: iohexol 350 mg/mL 500 mL Btl (per mL) IV (04:12)
[2025-03-14 04:13] LABS: Glucose Urine UA 1+ (Normal); Nitrate Urine Negative (Negative); Specific Gravity, Urine 1.023 (1.005-1.030)
[2025-03-14 04:18] LABS: Add Urine Microscopic? YES
[2025-03-14 05:28] VITALS: BP 156/105; PULSE 86; RESP 16; O2SAT 95
[2025-03-14 06:21] VITALS: BP 145/101; PULSE 88; RESP 14; O2SAT 96
== END 2025-03-14 06:24 | disposition home or self-care (01) ==
PROVIDERS: Emergency Provider Emergency Medicine; PCP Family Medicine
DX: R10.12 Left upper quadrant pain (principal); R10.11 Right upper quadrant pain; E11.42 Type 2 diabetes mellitus with diabetic polyneuropathy; Z79.84 Long term (current) use of oral hypoglycemic drugs; Z79.82 Long term (current) use of aspirin
CPT/HCPCS: 36415; 74177; 80053; 81001; 83605; 83690; 85025; 86140; 96374; 96375; 99285; J2270; J2405; J3490; J9999

== ENCOUNTER 2025-03-26 12:14 | Emergency (ER) | payer MEDICARE, OTHER, SELFPAY ==
[2025-03-26 13:02] VITALS: BP 110/72; PULSE 91; RESP 16; TEMP 36.7; O2SAT 97
[2025-03-26 14:17] LABS: Alanine Aminotransferase 28 U/L (0-41); Albumin Level 4.2 g/dL (3.5-5.2); Alkaline Phosphatase 84 U/L (40-130); Anion Gap 20.4 (5-19); Aspartate Amino Transferase 18 U/L (0-40); Blood Urea Nitrogen 29 mg/dL (8-23); Calcium 9.4 mg/dL (8.5-10.5); Carbon Dioxide 22 mmol/L (22-29); Chloride 96 mmol/L (98-107); Creatinine Clr Calc Pharmacy 53.8656; Globulin 3.2 g/dL (1.3-4.6); Glucose 253 mg/dL (65-115); Lipase 46 U/L (13-60); Osmolality Calculated 294 mOsm/kg (285-295); Potassium 3.4 mmol/L (3.5-5.1); Sodium 135 mmol/L (136-145); Total Protein 7.4 g/dL (6.6-8.7)
[2025-03-26 14:36] LABS: Hematocrit 38.0 % (37-53); Hemoglobin 13.40 g/dL (11.27-16.99); Mean Corpuscular HGB Conc 35.3 g/dL (30-55); Mean Corpuscular Hemoglobin 30.0 pg (27-33); Mean Corpuscular Volume 85.0 fl (82-101); Nucleated Red Blood Cells % 0 %; Platelet Count 370 10^3/cmm (157-399); Red Blood Count 4.47 10^6/uL (3.85-5.65); White Blood Count 8.29 10^3/uL (3.29-11.43)
[2025-03-26 16:55] VITALS: BP 195/125; PULSE 86; RESP 16; O2SAT 97
[2025-03-26 16:59] VITALS: PULSE 87; RESP 14; TEMP 36.5; O2SAT 97
[2025-03-26 17:10] LABS: Glucose Urine UA 1+ (Normal); Nitrate Urine Negative (Negative)
--- NOTE | 2025-03-26 17:14 | W.ED.ABDPA2 ---
Documented by User: Tutu Le DO 03/27/25 06:43 HPI - Abdominal Pain General: Chief Complaint: Abdominal Pain Stated Complaint: left side lower abdominal pain Time Seen by Provider: 03/26/25 16:44 History of Present Illness: 65-year-old male presents to the emergency room complaining of left lower quadrant abdominal pain for the last month. He denies any dysuria urgency or frequency no hematuria has not had any hematochezia or melena. States he does get a little bit relief with bowel movement. He had a CT done 2 weeks ago that showed a little bit of thickening in the sigmoid colon region but nothing conclusive. He denies any fever sweats or chills. Associated Symptoms: Denies chills, dysuria and fever(s) Related Data Home Medications ?Medication ?Instructions ?Recorded ?Confirmed aspirin 81 mg chewable tablet 81 mg PO DAILY 07/19/20 03/26/25 glimepiride 1 mg tablet 3 mg PO DAILY 12/07/24 03/26/25 Previous Rx's ?Medication ?Instructions ?Recorded amlodipine 10 mg tablet 10 mg PO DAILY #90 tabs 12/10/24 losartan 100 mg tablet 100 mg PO DAILY 3 months #90 tabs 12/10/24 carvedilol 25 mg tablet 25 mg PO BID 3 months #180 tabs 01/06/25 lidocaine 4 % topical patch 1 patch topical DAILY PRN pain #15 01/06/25 (Salonpas (lidocaine)) ea insulin glargine 100 unit/mL (3 40 unit (0.4 mL) SUBCUT QAM #15 mL 01/07/25 mL) subcutaneous pen (Basaglar KwikPen U-100 Insulin) diclofenac sodium 1 % topical gel 4 g topical QID #50 grams 02/09/25 (Voltaren Arthritis Pain) hydrochlorothiazide 50 mg tablet 50 mg PO QAM #90 tabs 02/09/25 hydralazine 25 mg tablet 25 mg PO TID #90 tabs 03/09/25 potassium chloride 20 mEq 20 meq PO DAILY #90 tabs 03/09/25 tablet,extended release (K-Tab) hydrocodone 5 mg-acetaminophen 325 1 tab PO Q8H PRN pain #7 tabs 03/14/25 mg tablet levofloxacin 500 mg tablet 500 mg PO DAILY 14 days #14 tabs 03/26/25 magnesium citrate (Citrate of 300 ml PO DAILY #296 mL 03/26/25 Magnesia oral) Allergies Allergy/AdvReac Type Severity Reaction Status Date / Time berries Allergy ALGY-Rash Uncoded 03/26/25 11:39 Review of Systems Const: Denies: fever(s) or chills Card: Denies: chest pain Resp: Denies: dyspnea GI: Denies: abdominal pain : Denies: dysuria, urinary frequency or urinary urgency Musc: Denies: neck pain or back pain Skin/Breast: Denies: rash PFSH ED PFSH: Medical History Diabetic peripheral neuropathy associated with type 2 diabetes mellitus Abscess of right foot Diabetic foot ulcer Hypertension Diabetes Social History Smoking and tobacco/nicotine status: never used tobacco/nicotine Physical Exam Const: GENERAL APPEARANCE: cooperative ORIENTATION/CONSCIOUSNESS: Yes awake, Yes oriented to person, Yes oriented to place and Yes oriented to time HENMT: COMMON NORMALS: normocephalic, atraumatic and hearing grossly normal bilaterally HEAD & SCALP: normocephalic and atraumatic Resp: COMMON NORMALS: normal respiratory effort, No retractions, No use of accessory muscles and clear to auscultation bilaterally AUSCULTATION: clear to auscultation bilaterally Cardio: COMMON NORMALS: regular rate, regular rhythm and No murmurs present (Cardio) RATE: regular rate RHYTHM: regular rhythm GI: COMMON NORMALS: No hepatosplenomegaly present AUSCULTATION: Yes normoactive bowel sounds PALPATION: Yes Tenderness to palpation present (GI) Details: LLQ, No Guarding due to palpation present (GI) and Yes No hepatosplenomegaly present Extremity: COMMON NORMALS: normal to inspection, capillary refill normal, no clubbing, cyanosis or edema, no calf tenderness and no pedal edema Neuro: SENSORIUM/ORIENTATION: Yes oriented to person, Yes oriented to place and Yes oriented to time Skin: COMMON NORMALS: no rashes or lesions noted GENERAL SKIN EXAM: no rashes or lesions noted Course Vital Signs: Vital signs: Vital Signs Temperature 97.7 F 03/26/25 16:59 Pulse Rate 86 03/26/25 18:51 Respiratory Rate 16 03/26/25 18:51 Blood Pressure 199/129 03/26/25 18:51 Pulse Oximetry 95 03/26/25 18:51 Oxygen Delivery Me thod Room Air 03/26/25 16:59 MDM - Abdominal Pain Medical Decision Making 65-year-old male here for the third time now in the last month with abdominal pain. He had a negative CT 2 weeks ago. He has another negative CT tonight. There is perhaps mild urinary bladder wall thickening, but no evidence of cystitis on urinalysis. His creatinine is 1.6. He may have mild prostatitis. He will be treated for this. We will also get him an appointment with surgery clinic, in case endoscopy is needed given this is his third time with abdominal pain. Lab Data 03/26/25 13:15 03/26/25 13:15 Labs/Radiology: Radiology Impressions Abdomen/Pelvis CT 03/26/25 17:16 IMPRESSION: 1. Wall thickening in the urinary bladder. Cystitis is not excluded. Clinical correlation recommended. 2. Otherwise, no acute. COMMENTS: Consistent with the [employer]'s Incidental Findings Committee white paper (J Am Stef Radiol 2018): Any incidental renal lesion less than 1 cm or classified as too small to characterize, or any incidental cystic renal lesion characterized as simple-appearing, is likely benign. No follow-up imaging is recommended for these lesions per consensus recommendations based on imaging criteria. Laboratory Results WBC 8.29 10^3/uL (3.29-11.43) 03/26/25 13:15 RBC 4.47 10^6/uL (3.85-5.65) 03/26/25 13:15 Hgb 13.40 g/dL (11.27-16.99) 03/26/25 13:15 Hct 38.0 % (37-53) 03/26/25 13:15 MCV 85.0 fl (82-101) 03/26/25 13:15 MCH 30.0 pg (27-33) 03/26/25 13:15 MCHC 35.3 g/dL (30-55) 03/26/25 13:15 RDW 12.5 % (12.1-15.1) 03/26/25 13:15 Plt Count 370 10^3/cmm (157-399) 03/26/25 13:15 MPV 9.2 fL (7.4-10.4) 03/26/25 13:15 Neut % (Auto) 52.1 % 03/26/25 13:15 Lymph % (Auto) 38.2 % 03/26/25 13:15 [place] % (Auto) 7.2 % 03/26/25 13:15 Eos % (Auto) 1.1 % 03/26/25 13:15 Baso % (Auto) 1.2 % 03/26/25 13:15 Neut # (Auto) 4.31 10^3/uL (1.8-7.7) 03/26/25 13:15 Lymph # (Auto) 3.2 10^3/uL (0.8-4.8) 03/26/25 13:15 [place] # (Auto) 0.6 10^3/uL (0.2-0.9) 03/26/25 13:15 Eos # (Auto) 0.1 10^3/uL (0.0-0.8) 03/26/25 13:15 Baso # (Auto) 0.1 10^3/uL (0.0-0.1) 03/26/25 13:15 Nucleated RBC % (auto) 0 % 03/26/25 13:15 Nucleated RBCs # 0.0 /100WBC 03/26/25 13:15 Sodium 135 mmol/L (136-145) L 03/26/25 13:15 Potassium 3.4 mmol/L (3.5-5.1) L 03/26/25 13:15 Chloride 96 mmol/L (98-107) L 03/26/25 13:15 Carbon Dioxide 22 mmol/L (22-29) 03/26/25 13:15 Anion Gap 20.4 (5-19) H 03/26/25 13:15 BUN 29 mg/dL (8-23) H 03/26/25 13:15 Creatinine 1.6 mg/dL (0.7-1.2) H 03/26/25 13:15 GFR Calculation 43.6 mL/min (90-130) L 03/26/25 13:15 Glucose 253 mg/dL (65-115) H 03/26/25 13:15 Calculated Osmolality 294 mOsm/kg (285-295) 03/26/25 13:15 Calcium 9.4 mg/dL (8.5-10.5) 03/26/25 13:15 Total Bilirubin 0.7 mg/dL (0.15-1.2) 03/26/25 13:15 AST 18 U/L (0-40) 03/26/25 13:15 ALT 28 U/L (0-41) 03/26/25 13:15 Alkaline Phosphatase 84 U/L (40-130) 03/26/25 13:15 Total Protein 7.4 g/dL (6.6-8.7) 03/26/25 13:15 Albumin 4.2 g/dL (3.5-5.2) 03/26/25 13:15 Globulin 3.2 g/dL (1.3-4.6) 03/26/25 13:15 Lipase 46 U/L (13-60) 03/26/25 13:15 Urine Color Yellow (Yellow) 03/26/25 16:38 Urine Appearance Clear (CLEAR) 03/26/25 16:38 Urine pH 5.0 (5-7) 03/26/25 16:38 Ur Specific [place] 1.040 (1.005-1.030) H 03/26/25 16:38 Urine Protein 1+ (Negative) A 03/26/25 16:38 Urine Glucose (UA) 1+ (Normal) H 03/26/25 16:38 Urine Ketones Trace (Negative) 03/26/25 16:38 Urine Blood Negative (Negative) 03/26/25 16:38 Urine Nitrate Negative (Negative) 03/26/25 16:38 Urine Bilirubin Negative (Negative) 03/26/25 16:38 Urine Urobilinogen 1.0 mg/dL (Negative) 03/26/25 16:38 Ur Leukocyte Esterase Negative (Negative) 03/26/25 16:38 Urine RBC 0-2 /hpf (0-2) 03/26/25 16:38 Urine WBC 0-5 /hpf (0-5) 03/26/25 16:38 Ur Squamous Epith Cells 0-5 /hpf (0-5) 03/26/25 16:38 Amorphous Sediment Not Reportable 03/26/25 16:38 Urine Bacteria None seen /hpf (NONE) 03/26/25 16:38 Hyaline Casts 19.83 /lpf 03/26/25 16:38 Discharge Plan Discharge Patient Disposition: Home Clinical Impression: Abdominal pain, Constipation Condition: Stable Prescriptions: New levofloxacin 500 mg tablet 500 mg PO DAILY 14 Days Qty: 14 0RF magnesium citrate [Citrate of Magnesia] Solution 300 ml PO DAILY Qty: 296 0RF No Action diclofenac sodium [Voltaren Arthritis Pain] 1 % gel 4 g topical QID Qty: 50 1RF Rx Instructions: apply to single knee, ankle, foot; for foot includes sole/toes/top of foot hydrochlorothiazide 50 mg tablet 50 mg PO QAM Qty: 90 1RF amlodipine 10 mg tablet 10 mg PO DAILY Qty: 90 2RF losartan 100 mg tablet 100 mg PO DAILY 90 Days Qty: 90 2RF carvedilol 25 mg tablet 25 mg PO BID 90 Days Qty: 180 2RF Rx Instructions: must administer with a meal/food lidocaine [Salonpas (lidocaine)] 4 % adhesive patch,medicated 1 patch topical DAILY PRN (Reason: pain) Qty: 15 0RF hydralazine 25 mg tablet 25 mg PO TID Qty: 90 1RF potassium chloride [K-Tab] 20 mEq tablet extended release 20 meq PO DAILY Qty: 90 1RF insulin glargine [Basaglar KwikPen U-100 Insulin] 100 unit/mL (3 mL) insulin pen 40 unit SUBCUT QAM Qty: 15 4RF aspirin 81 mg Tablet,Chewable 81 mg PO DAILY glimepiride 1 mg tablet 3 mg PO DAILY hydrocodone-acetaminophen 5-325 mg tablet 1 tab PO Q8H PRN (Reason: pain) Qty: 7 0RF Discharge Orders: Discharge ED (Routine); Ordered 03/26/25 Ordered By: Anthony García Referrals: Jose Davis MD [Primary Care Provider, Family Practice] - 4-7 days Patient Instructions: Abdominal Pain (ED), Opioid Safety, Pain Management, Patient Portal & Samir Instructions Activity Restrictions/Additional Instructions: No cause again for abdominal pain was found on your CAT scan today. You may have irritation of your prostate, and antibiotics are prescribed for this. You are also constipated, which could be contributing to your pain, and you have been given a prescription for a laxative. You should take this. Case management will set you up for an appointment with surgery clinic to see if any further outpatient tests are needed such as endoscopy. You should get a call from them next week. Print Language: Lebanese Coding Level of Care Code ED Wood Inspector for Chg Fwd Documented by User: Anthony García, DO 03/26/25 20:45 HPI - Abdominal Pain General: Chief Complaint: Abdominal Pain Stated Complaint: left side lower abdominal pain Time Seen by Provider: 03/26/25 16:44 Related Data Home Medications ?Medication ?Instructions ?Recorded ?Confirmed aspirin 81 mg chewable tablet 81 mg PO DAILY 07/19/20 03/26/25 glimepiride 1 mg tablet 3 mg PO DAILY 12/07/24 03/26/25 Previous Rx's ?Medication ?Instructions ?Recorded amlodipine 10 mg tablet 10 mg PO DAILY #90 tabs 12/10/24 losartan 100 mg tablet 100 mg PO DAILY 3 months #90 tabs 12/10/24 carvedilol 25 mg tablet 25 mg PO BID 3 months #180 tabs 01/06/25 lidocaine 4 % topical patch 1 patch topical DAILY PRN pain #15 01/06/25 (Salonpas (lidocaine)) ea insulin glargine 100 unit/mL (3 40 unit (0.4 mL) SUBCUT QAM #15 mL 01/07/25 mL) subcutaneous pen (Ethanaglar Jim U-100 Insulin) diclofenac sodium 1 % topical gel 4 g topical QID #50 grams 02/09/25 (Voltaren Arthritis Pain) hydrochlorothiazide 50 mg tablet 50 mg PO QAM #90 tabs 02/09/25 hydralazine 25 mg tablet 25 mg PO TID #90 tabs 03/09/25 potassium chloride 20 mEq 20 meq PO DAILY #90 tabs 03/09/25 tablet,extended release (K-Tab) hydrocodone 5 mg-acetaminophen 325 1 tab PO Q8H PRN pain #7 tabs 03/14/25 mg tablet levofloxacin 500 mg tablet 500 mg PO DAILY 14 days #14 tabs 03/26/25 magnesium citrate (Citrate of 300 ml PO DAILY #296 mL 03/26/25 Magnesia oral) Allergies Allergy/AdvReac Type Severity Reaction Status Date / Time berries Allergy ALGY-Rash Uncoded 03/26/25 11:39 PFSH ED PFSH: Medical History Diabetic peripheral neuropathy associated with type 2 diabetes mellitus Abscess of right foot Diabetic foot ulcer Hypertension Diabetes Social History Smoking and tobacco/nicotine status: never used tobacco/nicotine Course Vital Signs: Vital signs: Vital Signs Temperature 97.7 F 03/26/25 16:59 Pulse Rate 86 03/26/25 18:51 Respiratory Rate 16 03/26/25 18:51 Blood Pressure 199/129 03/26/25 18:51 Pulse Oximetry 95 03/26/25 18:51 Oxygen Delivery Me thod Room Air 03/26/25 16:59 MDM - Abdominal Pain Medical Decision Making 65-year-old male here for the third time now in the last month with abdominal pain. He had a negative CT 2 weeks ago. He has another negative CT tonight. There is perhaps mild urinary bladder wall thickening, but no evidence of cystitis on urinalysis. His creatinine is 1.6. He may have mild prostatitis. He will be treated for this. We will also get him an appointment with surgery clinic, in case endoscopy is needed given this is his third time with abdominal pain. Lab Data 03/26/25 13:15 03/26/25 13:15 Labs/Radiology: Radiology Impressions Abdomen/Pelvis CT 03/26/25 17:16 IMPRESSION: 1. Wall thickening in the urinary bladder. Cystitis is not excluded. Clinical correlation recommended. 2. Otherwise, no acute. COMMENTS: Consistent with the [employer]'s Incidental Findings Committee white paper (J Am Stef Radiol 2018): Any incidental renal lesion less than 1 cm or classified as too small to characterize, or any incidental cystic renal lesion characterized as simple-appearing, is likely benign. No follow-up imaging is recommended for these lesions per consensus recommendations based on imaging criteria. Laboratory Results WBC 8.29 10^3/uL (3.29-11.43) 03/26/25 13:15 RBC 4.47 10^6/uL (3.85-5.65) 03/26/25 13:15 Hgb 13.40 g/dL (11.27-16.99) 03/26/25 13:15 Hct 38.0 % (37-53) 03/26/25 13:15 MCV 85.0 fl (82-101) 03/26/25 13:15 MCH 30.0 pg (27-33) 03/26/25 13:15 MCHC 35.3 g/dL (30-55) 03/26/25 13:15 RDW 12.5 % (12.1-15.1) 03/26/25 13:15 Plt Count 370 10^3/cmm (157-399) 03/26/25 13:15 MPV 9.2 fL (7.4-10.4) 03/26/25 13:15 Neut % (Auto) 52.1 % 03/26/25 13:15 Lymph % (Auto) 38.2 % 03/26/25 13:15 [place] % (Auto) 7.2 % 03/26/25 13:15 Eos % (Auto) 1.1 % 03/26/25 13:15 Baso % (Auto) 1.2 % 03/26/25 13:15 Neut # (Auto) 4.31 10^3/uL (1.8-7.7) 03/26/25 13:15 Lymph # (Auto) 3.2 10^3/uL (0.8-4.8) 03/26/25 13:15 [place] # (Auto) 0.6 10^3/uL (0.2-0.9) 03/26/25 13:15 Eos # (Auto) 0.1 10^3/uL (0.0-0.8) 03/26/25 13:15 Baso # (Auto) 0.1 10^3/uL (0.0-0.1) 03/26/25 13:15 Nucleated RBC % (auto) 0 % 03/26/25 13:15 Nucleated RBCs # 0.0 /100WBC 03/26/25 13:15 Sodium 135 mmol/L (136-145) L 03/26/25 13:15 Potassium 3.4 mmol/L (3.5-5.1) L 03/26/25 13:15 Chloride 96 mmol/L (98-107) L 03/26/25 13:15 Carbon Dioxide 22 mmol/L (22-29) 03/26/25 13:15 Anion Gap 20.4 (5-19) H 03/26/25 13:15 BUN 29 mg/dL (8-23) H 03/26/25 13:15 Creatinine 1.6 mg/dL (0.7-1.2) H 03/26/25 13:15 GFR Calculation 43.6 mL/min (90-130) L 03/26/25 13:15 Glucose 253 mg/dL (65-115) H 03/26/25 13:15 Calculated Osmolality 294 mOsm/kg (285-295) 03/26/25 13:15 Calcium 9.4 mg/dL (8.5-10.5) 03/26/25 13:15 Total Bilirubin 0.7 mg/dL (0.15-1.2) 03/26/25 13:15 AST 18 U/L (0-40) 03/26/25 13:15 ALT 28 U/L (0-41) 03/26/25 13:15 Alkaline Phosphatase 84 U/L (40-130) 03/26/25 13:15 Total Protein 7.4 g/dL (6.6-8.7) 03/26/25 13:15 Albumin 4.2 g/dL (3.5-5.2) 03/26/25 13:15 Globulin 3.2 g/dL (1.3-4.6) 03/26/25 13:15 Lipase 46 U/L (13-60) 03/26/25 13:15 Urine Color Yellow (Yellow) 03/26/25 16:38 Urine Appearance Clear (CLEAR) 03/26/25 16:38 Urine pH 5.0 (5-7) 03/26/25 16:38 Ur Specific [place] 1.040 (1.005-1.030) H 03/26/25 16:38 Urine Protein 1+ (Negative) A 03/26/25 16:38 Urine Glucose (UA) 1+ (Normal) H 03/26/25 16:38 Urine Ketones Trace (Negative) 03/26/25 16:38 Urine Blood Negative (Negative) 03/26/25 16:38 Urine Nitrate Negative (Negative) 03/26/25 16:38 Urine Bilirubin Negative (Negative) 03/26/25 16:38 Urine Urobilinogen 1.0 mg/dL (Negative) 03/26/25 16:38 Ur Leukocyte Esterase Negative (Negative) 03/26/25 16:38 Urine RBC 0-2 /hpf (0-2) 03/26/25 16:38 Urine WBC 0-5 /hpf (0-5) 03/26/25 16:38 Ur Squamous Epith Cells 0-5 /hpf (0-5) 03/26/25 16:38 Amorphous Sediment Not Reportable 03/26/25 16:38 Urine Bacteria None seen /hpf (NONE) 03/26/25 16:38 Hyaline Casts 19.83 /lpf 03/26/25 16:38 All radiology interpretation(s) finalized by discharge Discharge Plan Discharge Patient Disposition: Home Clinical Impression: Abdominal pain, Constipation Condition: Stable Prescriptions: New levofloxacin 500 mg tablet 500 mg PO DAILY 14 Days Qty: 14 0RF magnesium citrate [Citrate of Magnesia] Solution 300 ml PO DAILY Qty: 296 0RF No Action diclofenac sodium [Voltaren Arthritis Pain] 1 % gel 4 g topical QID Qty: 50 1RF Rx Instructions: apply to single knee, ankle, foot; for foot includes sole/toes/top of foot hydrochlorothiazide 50 mg tablet 50 mg PO QAM Qty: 90 1RF amlodipine 10 mg tablet 10 mg PO DAILY Qty: 90 2RF losartan 100 mg tablet 100 mg PO DAILY 90 Days Qty: 90 2RF carvedilol 25 mg tablet 25 mg PO BID 90 Days Qty: 180 2RF Rx Instructions: must administer with a meal/food lidocaine [Salonpas (lidocaine)] 4 % adhesive patch,medicated 1 patch topical DAILY PRN (Reason: pain) Qty: 15 0RF hydralazine 25 mg tablet 25 mg PO TID Qty: 90 1RF potassium chloride [K-Tab] 20 mEq tablet extended release 20 meq PO DAILY Qty: 90 1RF insulin glargine [Basaglar KwikPen U-100 Insulin] 100 unit/mL (3 mL) insulin pen 40 unit SUBCUT QAM Qty: 15 4RF aspirin 81 mg Tablet,Chewable 81 mg PO DAILY glimepiride 1 mg tablet 3 mg PO DAILY hydrocodone-acetaminophen 5-325 mg tablet 1 tab PO Q8H PRN (Reason: pain) Qty: 7 0RF Discharge Orders: Discharge ED (Routine); Ordered 03/26/25 Ordered By: Anthony García Referrals: Jose Davis MD [Primary Care Provider, [facility]] - 4-7 days Patient Instructions: Abdominal Pain (ED), Opioid Safety, Pain Management, Patient Portal & Samir Instructions Activity Restrictions/Additional Instructions: No cause again for abdominal pain was found on your CAT scan today. You may have irritation of your prostate, and antibiotics are prescribed for this. You are also constipated, which could be contributing to your pain, and you have been given a prescription for a laxative. You should take this. Case management will set you up for an appointment with surgery clinic to see if any further outpatient tests are needed such as endoscopy. You should get a call from them next week. Print Language: Lebanese Coding Level of Care Code ED Wood Inspector for Sweta Alvarez
[2025-03-26 17:15] LABS: Add Urine Microscopic? YES
--- NOTE | 2025-03-26 17:16 | CTR_ITS ---
PROCEDURE INFORMATION: Exam: CT Abdomen And Pelvis With Contrast Exam date and time: 03/26/2025 5:45 PM Age: 65 years old Clinical indication: Abdominal pain; Prior surgery; Surgery date: 6+ months; Surgery type: Gb. Hernia repair; C/O llq pain; Additional info: Abd pain TECHNIQUE: Imaging protocol: Computed tomography of the abdomen and pelvis with contrast. Radiation optimization: All CT scans at this facility use at least one of these dose optimization techniques: automated exposure control; mA and/or kV adjustment per patient size (includes targeted exams where dose is matched to clinical indication); or iterative reconstruction. Contrast material: OMNI 350; Contrast volume: 100 ml; Contrast route: INTRAVENOUS (IV); COMPARISON: CT abdomen pelvis w con* [id number] 03/14/2025 4:09 AM RADIATION DOSE METRICS: Total DLP (mGy-cm): 806.82 FINDINGS: Lungs: Discoid atelectasis in the right lower lobe. Liver: Normal. No mass. Gallbladder and biliary ducts: Cholecystectomy. The bile ducts are normal. Pancreas: Normal. No ductal dilation. Spleen: Normal. No splenomegaly. Adrenal glands: Normal. No mass. Kidneys and ureters: Hypodense lesion in the left kidney is too small to characterize and is most likely a cyst. No follow-up imaging is recommended. Faint 1 mm calculus in the inferior left kidney. No ureteral calculus or hydronephrosis. The right kidney is normal. Stomach and bowel: Unremarkable. No obstruction. No mucosal thickening. Appendix: The appendix is visualized and is normal. Intraperitoneal space: Unremarkable. No free air. No significant fluid collection. Vasculature: Mild calcified arterial plaque. No aneurysm. Lymph nodes: Unremarkable. No enlarged lymph nodes. Urinary bladder: Circumferential wall thickening of the urinary bladder measuring up to 12 mm. Reproductive: Mild prostatomegaly. Bones/joints: Degenerative changes in the spine. No acute fracture. Soft tissues: Unremarkable. CT/CT abdomen pelvis w con* [id number] IMPRESSION: 1. Wall thickening in the urinary bladder. Cystitis is not excluded. Clinical correlation recommended. 2. Otherwise, no acute. COMMENTS: Consistent with the [employer]'s Incidental Findings Committee white paper (J Am Stef Radiol 2018): Any incidental renal lesion less than 1 cm or classified as too small to characterize, or any incidental cystic renal lesion characterized as simple-appearing, is likely benign. No follow-up imaging is recommended for these lesions per consensus recommendations based on imaging criteria.
[2025-03-26 17:21] LABS: Specific Gravity, Urine 1.040 (1.005-1.030)
[2025-03-26] MEDS: morphine 4 mg/mL SDV 1 mL IVP (17:32)
[2025-03-26] MEDS: iohexol 350 mg/mL 500 mL Btl (per mL) IV (17:47)
[2025-03-26 18:51] VITALS: BP 199/129; PULSE 86; RESP 16; O2SAT 95
--- NOTE | 2025-03-30 09:37 | PC.NURSE ---
referral sent to general surg.
== END 2025-03-26 19:45 | disposition home or self-care (01) ==
PROVIDERS: Family Medicine; Emergency Provider Emergency Medicine; PCP Family Medicine
DX: R10.9 Unspecified abdominal pain (principal); K59.00 Constipation, unspecified; Z79.4 Long term (current) use of insulin; Z79.82 Long term (current) use of aspirin; E11.9 Type 2 diabetes mellitus without complications; I10 Essential (primary) hypertension
CPT/HCPCS: 36415; 74177; 80053; 81000; 81001; 83690; 85025; 87086; 96361; 96374; 96375; 99285; J0780; J2270; J7030

== ENCOUNTER → 2025-04-06 10:55 | Outpatient (BNVA) | payer MEDICARE, OTHER, SELFPAY | PROVIDERS: PCP Family Medicine; Visit Provider Surgery | DX: R10.32 Left lower quadrant pain (principal); N17.9 Acute kidney failure, unspecified; Z90.49 Acquired absence of other specified parts of digestive tract | CPT/HCPCS: 36415; 80048; 99204 ==

== ENCOUNTER → 2025-05-05 09:24 | Outpatient (BNVA) | payer MEDICARE, OTHER, SELFPAY | PROVIDERS: PCP Family Medicine; Visit Provider Family Medicine | DX: Z01.818 Encounter for other preprocedural examination (principal) | CPT/HCPCS: 80048 ==

== ENCOUNTER → 2025-05-10 12:14 | Outpatient (BNVA) | payer MEDICARE, OTHER, SELFPAY | PROVIDERS: PCP Family Medicine; Visit Provider Family Medicine | DX: E11.9 Type 2 diabetes mellitus without complications (principal); Z01.818 Encounter for other preprocedural examination | CPT/HCPCS: 83036 ==

== ENCOUNTER 2025-05-13 11:11 | Day surgery (SDC) | payer MEDICARE, OTHER, SELFPAY ==
[2025-05-13 11:31] VITALS: BP 112/88; PULSE 128; RESP 18; TEMP 36.1; O2SAT 95; BMI 27.3
--- NOTE | 2025-05-13 11:31 | W.PM.OPSFHP ---
Same Day Surgery H&P Indication for Procedure/HPI DATE OF PROCEDURE: May 13, 2025 CHIEF COMPLAINT/INDICATIONFOR SURGICAL PROCEDURE: abdominal pain PREOP DIAGNOSIS: abdominal pain PLANNED PROCEDURE: Operation Date: 05/13/25 13:00 Proposed Procedures p Colonoscopy [id number] Z12.11(Not Applicable) - Jerrod Santillan MD Medications/Allergies* Home Medications ?Medication ?Instructions ?Recorded ?Confirmed ?Type aspirin 81 mg chewable tablet 81 mg PO DAILY 07/19/20 05/10/25 History glimepiride 1 mg tablet 3 mg PO DAILY 12/07/24 05/10/25 History Allergies/Adverse Reactions Allergy/AdvReac Type Severity Reaction Status Date / Time berries Allergy ALGY-Rash Uncoded 05/10/25 11:36 Pertinent History/Comorbid Conditions* Medical History (Updated 05/10/25 @ 12:05 by Jose Davis MD) Diabetic peripheral neuropathy associated with type 2 diabetes mellitus Abscess of right foot Diabetic foot ulcer Hypertension Diabetes Social History Smoking and tobacco/nicotine status: never used tobacco/nicotine Pertinent Exam Findings alert, oriented x 3, clear to auscultation bilaterally and regular rate & rhythm Recommendations Surgery/Procedure today Coding Level of Care Code Acute Code for Chg Fwd
--- NOTE | 2025-05-13 12:06 | P.ANESASSM_ITS ---
Pre-Anesthetic Assessment Height/Weight: Height 1.8 m Weight 88.904 kg Temp Pulse Resp BP Pulse Ox O2 Del Method 97.0 F L 128 H 18 112/88 95 Room Air 05/13/25 11:31 05/13/25 11:31 05/13/25 11:31 05/13/25 11:31 05/13/25 11:31 05/13/25 11:31 Preop Diagnosis: abdominal pain Operation Date: 05/13/25 13:00 Proposed Procedures p Colonoscopy [id number] Z12.11(Not Applicable) - Jerrod Santillan MD Familial anesthetic complications: none Was Beta Isidro taken within 24 hours: Yes Was Clonidine taken within 24 hours: N/A Last intake: Intake Last Liquid Date 05/12/25 Last Liquid Time 20:00 Last Solid Date 05/11/25 Last Solid Time 20:00 Social No alcohol and No tobacco THC gummies Exam alert and oriented x 3 Airway Submandibular: within normal limits Cervical ROM: within normal limits Mallampati: Class II Dentition: chipped (poor dentition) History/ROS No significant history except as noted Pulmonary Sleep Apnea CV/HEM Hypertension None reported Hepatic None reported GI Gastroesophageal Reflux Disease Metabolic Diabetes Mellitus and Hyperlipidemia [facility] [place] Lower Back Pain Neuropsych None reported Anesthetic Plan ASA status: 3 Anesthesia: Anesthesia Evaluation and MAC Risk of > 500 ml blood loss (7ml/kg in children): No Medications/Allergies Home Medications ?Medication ?Instructions ?Recorded ?Confirmed ?Last Taken ?Type aspirin 81 mg chewable tablet 81 mg PO DAILY 07/19/20 05/10/25 05/10/25 History glimepiride 1 mg tablet 3 mg PO DAILY 12/07/2405/1005/09/25 History amlodipine 10 mg tablet 10 mg PO DAILY #90 tabs 12/0105/10/25 05/10/25 Rx losartan 100 mg tablet 100 mg PO DAILY 3 months #90 tabs 12/10/24 05/10/25 U nknown Rx carvedilol 25 mg tablet 25 mg PO BID 3 months #180 t abs 01/06/25 05/10/25 05/10/25 Rx insulin glargine 100 unit/mL (3 40 unit (0.4 mL) SUBCU T QAM #15 mL 01/07/25 05/10/2525 Rx mL) subcutaneous pen (Basaglar KwikPen U-100 Insulin) diclofenac sodium 1 % topical gel 4 g topical QID #50 grams 02/09/25 05/10/25 Unknown Rx (Voltaren Arthritis Pain) hydrochlorothiazide 50 mg tablet 50 mg PO QAM #90 tabs 02/09/25 05/10/25 Unknown Rx hydralazine 25 mg tablet 25 mg PO TID #90 tabs 05/10/25 05/10/25 Rx cyclobenzaprine 10 mg tablet 10 mg PO TID PRN muscle s pasm #30 05/10/25 05/10/25 Unknown Rx tabs empagliflozin 25 mg tablet 25 mg PO QAM #60 tabs 05/13 Unknown Rx (Jardiance) Allergies Allergy/AdvReac Type Severity Reaction Status Date / Time berries Allergy ALGY-Rash Uncoded 05/10/25 11:36 Current Medications Generic Name Dose Route Start Last Admin Trade Name Freq PRN Reason Stop Dose Admin Sodium Chloride 1,000 mls @ 30 mls/hr 05/13/25 07:00 05/13/25 11:42 Sodium Chloride 0.9% IV 05/14/25 06:59 30 mls/hr .Q24H RAAD Administration PFSH Anesthesia Medical History (Updated 05/10/25 @ 12:05 by Jose Davis MD) Diabetic peripheral neuropathy associated with type 2 diabetes mellitus Abscess of right foot Diabetic foot ulcer Hypertension Diabetes Social History Smoking and tobacco/nicotine status: never used tobacco/nicotine
--- NOTE | 2025-05-13 12:23 | PC.NURSE ---
Cecum time 1223
[2025-05-13 12:34] VITALS: BP 122/84; PULSE 95; RESP 18; TEMP 36.1; O2SAT 94
--- NOTE | 2025-05-13 12:39 | ANE.PACU2 ---
Inpatient post-anesthesia follow up: Airway intact: Yes Vital signs: Temperature 97.0 F Pulse Rate 128 Respiratory Rate 18 Blood Pressure 112/88 Pulse Oximetry 95 Oxygen Delivery Me thod Room Air Oxygen Flow Rate Fraction of Inspir ed Oxygen Hydration adequate: Yes Nausea and vomiting: No Pain level: 1 Mental status: Baseline
[2025-05-13 12:50] VITALS: BP 96/66; PULSE 106; RESP 17; O2SAT 94
[2025-05-13 13:07] VITALS: BP 105/72; PULSE 95; RESP 18; O2SAT 96
--- NOTE | 2025-05-13 13:15 | ANE.PACU2 ---
Inpatient post-anesthesia follow up: Airway intact: Yes Vital signs: Temperature 97.0 F Pulse Rate 95 Respiratory Rate 18 Blood Pressure 105/72 Pulse Oximetry 96 Oxygen Delivery Me thod Room Air Oxygen Flow Rate Fraction of Inspir ed Oxygen Hydration adequate: Yes Nausea and vomiting: No Pain level: 1 Mental status: Baseline
== END 2025-05-13 13:29 | disposition home or self-care (01) ==
PROVIDERS: PCP Family Medicine; Visit Provider Surgery
PROC: 0DJD8ZZ Inspection of Lower Intestinal Tract, Via Natural or Artificial Opening Endoscopic (ICD-10-PCS; CPT 45378; principal; 2025-05-13 13:00)
DX: R10.9 Unspecified abdominal pain (principal); D12.2 Benign neoplasm of ascending colon; Z79.82 Long term (current) use of aspirin; I10 Essential (primary) hypertension; E11.9 Type 2 diabetes mellitus without complications; E11.42 Type 2 diabetes mellitus with diabetic polyneuropathy; G47.30 Sleep apnea, unspecified; K21.9 Gastro-esophageal reflux disease without esophagitis; E78.5 Hyperlipidemia, unspecified; Z79.4 Long term (current) use of insulin
CPT/HCPCS: 36416; 45380; 82962; 88305; J2704; J7030

== ENCOUNTER → 2025-06-01 12:54 | Outpatient (BNVA) | payer MEDICARE, OTHER, SELFPAY | PROVIDERS: PCP Family Medicine; Visit Provider Surgery | DX: Z09 Encounter for follow-up examination after completed treatment for conditions other than malignant neoplasm (principal) | CPT/HCPCS: 99213 ==

== ENCOUNTER 2025-08-16 07:32 | Outpatient (CLI) | payer MEDICARE, SELFPAY ==
--- NOTE | 2025-08-16 07:45 | US_ITS ---
WS: [id number] Complete ABDOMINAL ULTRASOUND HISTORY: enlarged liver COMPARISON: 11/02/2013 Liver: 16.6 cm in length. Poorly visualized liver its entirety due to body habitus. No intrahepatic duct dilatation or mass. Portal Vein: Normal hepatopetal flow with monophasic waveform. Gallbladder: Status post cholecystectomy. CBD: 0.5 cm Pancreas: Completely obscured. Right kidney: 10.6 cm x 5.9 x 6.7 cm. Cortex:1.4 cm. Normal size and echogenicity. No hydronephrosis or mass. Left kidney: 10.8 cm x 5.4 cm x 5.4 cm. Cortex: 1.2 cm. Normal size and echogenicity. No hydronephrosis or mass. Spleen: 9.0 cm. Normal size and echogenicity. Aorta and IVC: Unremarkable abdominal aorta and IVC. US/US abdomen complete* [id number] Impression: 1. Prior cholecystectomy. 2. No renal obstruction. 3. No intrahepatic duct dilatation. 4. Completely obscured pancreas.
== END 2025-08-16 07:33 | disposition home or self-care (01) ==
PROVIDERS: PCP Family Medicine; Visit Provider Family Medicine
DX: R16.0 Hepatomegaly, not elsewhere classified (principal); Z90.49 Acquired absence of other specified parts of digestive tract
CPT/HCPCS: 76700